=== PATIENT | male | born 1950 | race Caucasian/White ===

== ENCOUNTER 2019-03-24 17:43 | Emergency (ER) | payer MEDICARE ==
--- OUTSIDE RECORDS SUMMARY | 2019-03-24 18:01 | XMS REPORT | Continuity of Care Document ---
:1950 External Reference #:[id number] Author Name Roc Cook M.D. Address [address] [place] [address] Care Team Providers Name Role Phone Johnathan Peter - Urology Care Team Information Statistician Mathematical [phone] Arsenio Chappell MD - Hematology Care Team Information Statistician Mathematical [phone] Markie Wilson MD - Vascular Surgery Care Team Information Statistician Mathematical [facility] - Care Team Information Statistician Mathematical [phone] Gastroenterology Dilma Matson - Dermatology Care Team Information Statistician Mathematical Tita Vidales MD - Hematology & Care Team Information Statistician Mathematical [phone] Oncology [facility] Radiology Department - Diagnostic Care Team Information Statistician Mathematical Radiology Dragan Nicolas MD - Cardiovascular Care Team Information Statistician Mathematical Disease Problems Active Problems Provider Date Essential hypertension Bladimir Pearl M.D. Onset: 06/17/1998 Hyperlipidemia Roc Cook M.D. Onset: 09/16/2007 Obesity Roc Cook M.D. Onset: 09/16/2007 Idiopathic progressive polyneuropathy Roc Cook M.D. Onset: 2007 Benign prostatic hypertrophy without Roc Cook M.D. Onset: 07/24/2008 outflow obstruction Gout Roc Cook M.D. Onset: 07/24/2008 Backache Roc Cook M.D. Onset: 01/27/2011 Thrombocytopenic disorder Roc Cook M.D. Onset: 01/27/2011 Peripheral vascular disease Roc Cook M.D. Onset: 09/11/2011 Impaired renal function disorder Roc Cook M.D. Onset: 08/15/2012 Depressive disorder Roc Cook M.D. Onset: 07/24/2013 Hypothyroidism Roc Cook M.D. Onset: 08/07/2013 Paroxysmal atrial fibrillation Roc Cook M.D. Onset: 11/06/2015 Myelodysplastic syndrome (clinical) Roc Cook M.D. Onset: 01/16/2017 Acute sinusitis Roc Cook M.D. Onset: 05/28/2018 Combined form of senile cataract Roc Cook M.D. Onset: 01/27/2019 Adult health examination Roc Cook M.D. Onset: 01/27/2019 Urinary tract infectious disease Roc Cook M.D. Onset: 01/27/2019 Social History Type Date Description Comments Sex Unknown Tobacco Use Start: Unknown End: Former Cigarette Smoker 1 Unknown Pack Daily ETOH Use Has consumed alcohol in the now quit, formerly past heavy Allergies, Adverse Reactions, Alerts Active Allergies Reaction Severity Comments Date Ibuprofen 07/06/2009 Tetracycline 08/24/2015 Prednisone makes pt mean 11/06/2015 Medications Active Medications SIG Qnty Indications Ordering Date Provider Sertraline HCL 1 by mouth every 90tabs Roc FSharon 01/27/2019 100mg day Sha Cook Tablets Montelukast Sodium 1 by mouth every 30tabs Roc FSharon 01/27/2019 10mg day Sha Cook Tablets Chantix Starting refill with 1 mg 1tabs Roc FSharon 01/27/2019 Month Oneal by mouth twice a Sha Cook 0.5mg X 11 & day 1 mg X 42 Tablets Sulfamethoxazole/Trim take 1 tablet by 20tabs Roc FSharon 01/27/2019 ethoprim DS mouth 2 times a Sha Cook 800-160mg day for 10 days Tablets [facility] Vitamin B-12 Take 1 Tablet By 100tabs Roc FSharon 11/28/2018 Mouth Every Day Shallish, M.D. 1000mcg Tablets Colchicine Take 1 Tablet By 180tabs Roc F. 07/04/2018 0.6mg Mouth Twice Daily Sha Cook Tablets as Needed Allopurinol Take 1 Tablet By 90tabs Roc F. 05/28/2018 100mg Mouth Every Day Sha Cook Tablets Furosemide take 1 tablet by 90tabs Roc F. 12/18/2017 20mg Tablets mouth once daily Sha Cook Sudafed 1 by mouth four 120tabs Roc F. 11/28/2017 30mg Tablets times a day as Sha Cook needed Warfarin Sodium Take 1 Tablet By 90tabs Roc F. 01/08/2016 5mg Mouth Every Day Or Sha Cook Tablets as Directed Oxycontin 1 by mouth twice a 60tabs Roc F. 11/06/2015 60mg Tab ER day dx: g60.9 Sha Cook 12H Abuse-Det neuropathy Levothyroxine Sodium Take 1 Tablet By 90tabs Roc FSharon 08/03/2013 Mouth Every Day Sha Cook 25mcg Tablets Ambien take 1 tablet at 30tabs James Leonard 06/25/2010 10mg Tablets bedtime as needed MD Blanca for sleep Omeprazole take one capsule 90michelle Peraza 06/16/2010 20mg by mouth every day PAVEL Holly Capsules DR Figueroa take 1 capsule 90caps James Leonard 07/24/2008 200mg Capsules three times a day MD Blanca Xanax 1 by mouth three 90tabs Roc F. 0.25mg Tablets times a day Sha Cook Aspirin 1 po qd Roc F. 81mg Tablet Sha Cook Oxycodone HCL 1 by mouth every 4 60tabs Roc F. 5mg hours as needed Sha Cook Tablets History Medications Azithromycin take 2 tablets by 6tabs Roc FSharon Cook, 09/24/2018 - 250mg mouth on day 1 M.DSharon 01/27/2019 Tablets then 1 tablet on days 2 through 5 Sertraline HCL 1 by mouth every 90tabs Gayle Holly, 09/24/2018 - 50mg day [employer] 01/27/2019 Tablets Medications Administered in Office Medication SIG Qnty Indications Ordering Provider Date H1N1 MDCR vaccine any route Roc Cook M.D. 07/06/2009 Injection B-12 Injection Roc Cook M.D. 05/11/2006 Injection Injection Subcutaneous Or Roc Cook M.D. 05/11/2006 Intramuscular Injection Immunizations CPT Code Status Date Vaccine Reaction Lot # [id number] Given 01/27/2019 Pneumococcal Conjugate [id number] Vacc-13 27471 Given 01/27/2019 High-Dose, Influenza Virus [id number] Vacccine-fluzone 65 and older 79075 Given 03/09/2018 High-Dose, Influenza Virus [id number] Vacccine-fluzone 65 and older 06967 Given 01/16/2017 Influenza Vac, Quadrivalent, [id number] [address] Given 04/01/2016 Zostivax [id number] 58031 Given 04/01/2016 Pneumococcal Immunization [id number] 80198 Given 04/01/2016 Influenza Vac, Quadrivalent, [id number] [address] Given 03/11/2014 DO Not Use Split Influenza Virus Vaccine 89068 Given 12/20/2012 Tdap Tetanus, W Pertussis [id number] Q2038 Given 01/27/2011 Split Influenza Medicare: no reaction noted [id number] Fluzone 61410 Given 03/11/2010 DO Not Use Split Influenza [id number] Virus Vaccine 99392 Given 07/06/2009 DO Not Use Split Influenza [id number] Virus Vaccine 92672 Given 04/16/2006 DO Not Use Split Influenza [id number] Virus Vaccine 69146 Given 03/07/2005 DO Not Use Split Influenza Virus Vaccine Vital Signs Date Vital Result Comment 01/27/2019 2:40pm BP Systolic 110 mmHg BP Diastolic 90 mmHg Heart Rate 68 /min Body Temperature 97.7 F Respiratory Rate 12 /min Weight 278.00 lb 09/24/2018 6:55pm BP Systolic 136 mmHg BP Diastolic 78 mmHg Heart Rate 72 /min Body Temperature 97.7 F Respiratory Rate 20 /min Results Test Date Facility Test Result H/L Range Note Laboratory test 01/27/2019 [facility] ([facility]) 1.7 Low 2.0-3.0 finding (607)- - Laboratory test 01/27/2019 [facility] PSA (ALL <pending> 0.0- 4.0 finding Lab Comp) Laboratory test 01/27/2019 [facility] Free T4 <pending> 0.75- 1.54 finding TSH <pending> 0.5-5.0 Ua - Micro ([facility]) 01/27/2019 [facility] Medicine Appearance Slightly Cloudy (607)- - Color Yellow Glucose, Urine ([facility]ma/CMC/CTX) Negative Bilirubin Negative Ketones Negative SP Grav 1.015 Blood Small PH 5.5 Protein Negative Urobil 0.2 Nitrite Negative Leukocytes ([facility]/CMC/[facility]rex) Large Hyaline - /Lpf Granular - /Lpf WBC ([facility]) >100 RBC 3-4 Mucus ([facility]/CBC/[facility]) 0 /Lpf Epith 0 /Lpf Bacteria Trace /Hpf Amorphous ([facility]/CMC/[facility]rex) - /Lpf Crystals, Fluid ([facility]/CMC/CTX) - Z#Comments <pending> Ua - Non Micro ([facility]) 10/01/2018 [facility] Appearance Clear (607)- - Color Yellow Glucose, Urine ([facility]/CMC/CTX) Negative Bilirubin Negative Ketones Negative SP Grav 1.025 Blood Negative PH 6.0 Protein -SSA Urobil 0.2 Nitrite Negative Leukocytes ([facility]/CMC/Centrex) Negative CBC Manual Diff-a 09/28/2018 [facility] WBC 3.56 Low 4.0-10.0 1 (607)- - RBC 3.99 3.93-6.0 Hemoglobin ([facility]/CMC/CTX) 12.6 g/dL 12.0-17.0 Hematocrit ([facility]/CMC/CTX) 39.6 % 35.0-50.0 Mean Corpuscular Vol 99.2 fL High 80-95 Mean Corpuscular Hemoglobin 31.6 pg 25.6-32.2 Mean Corpuscular Hemo Concen 31.8 g/dL Low 32.2-36.0 Platelets 89 10^3/ul Low 163-400 RDW 14.0 High 11.6-13.7 Mean Platelet Volume 11.4 fL 8.0-12.4 Neutrophil % 33 % Low 34.0-70.0 Band Neutrophil 5 % 1-7 Lymph% 30 % 20.0-52.0 Monocytes % 9 % 5.0-12.0 Eos % 3 % 0.7-7.0 Atypical Lymph 17 Metamyelocytes 2 Myelocytes 1 Macrocytosis slight Hypochrom slight Comment see result note Comprehensive Metabolic 09/28/2018 [facility]) Sodium 142 mEq/L 134-149 Prof Potassium 4.0 mEq/L 3.6-5.5 Chloride 105 mEq/L 94-112 Carbon Dioxide 27 mEq/L 21-32 Glucose 75 mg/dL 70-105 BUN 25 mg/dL 6-26 Creatinine 2.2 mg/dL High 0.6-1.4 2 BUN/Creat Ratio 11.4 CALC 8.0-36.0 Calcium 8.6 mg/dL 8.6-10.2 Total Protein 6.2 g/dL Low 6.4-8.3 3 Albumin 4.0 g/dL 3.8-5.5 Globulin 2.2 g/dL 2.0-4.8 A/G Ratio 1.8 CALC 0.6-2.3 Alk. Phosphatase 97 U/L High 22-95 4 Alt (SGPT) 7 U/L 7-35 Ast (Sgot) 12 U/L 5-34 Total Bilirubin 0.4 mg/dL 0.2-1.3 GFR Non- 32 ml/min/1.73m^ Low >=60 GFR 39 ml/min/1.73m^ Low >=60 Laboratory test 09/28/2018 [facility] Free T4 0.92 ng/dL 0.75- 1.54 finding TSH 1.77 mIU/L 0.50-6.00 Lipid Profile 09/28/2018 [facility]) Cholesterol 203 mg/dL High 120-200 Triglycerides 231 mg/dL High 30-200 HDL Cholesterol 43 mg/dL 30-70 LDL (Calculated) 114 CALC 0-129 VLDL Cholesterol 46 mg/dL 0-50 HDL Risk Factor 4.7 CALC High 0.0-4.4 Laboratory test 09/28/2018 [facility]) PSA 0.2 ng/mL 0.0-4.0 finding Laboratory test 09/28/2018 [facility] ([facility]) 3.6 High 2.0-3.0 finding (607)- - 1 Platelets appear slightly low in number on smear, there are small platelet clumps present (consistent with previous results). Large platelets present on smear. 17% atypical lymphs on smear, appear abnormal in morphology. 2 consistent w/ previous results 3 RESULTS VERIFIED BY REPEAT ANALYSIS 4 RESULTS VERIFIED BY REPEAT ANALYSIS Procedures Date Code Description Status 09/11/2003 60272043 Colonoscopy Completed Medical Devices Description No Information Available Encounters Type Date Location Provider Dx Diagnosis Office Visit 09/24/2018 Main Office Roc Cook, I48.0 Paroxysmal atrial 6:00p M.DSharon fibrillation D46.9 Myelodysplastic syndrome, unspecified M10.9 Gout, unspecified J01.80 Other acute sinusitis G60.3 Idiopathic progressive neuropathy F32.89 Other specified depressive episodes N40.0 Benign prostatic hyperplasia without lower urinry tract symp Assessments Date Code Description Provider 01/27/2019 N40.0 Benign prostatic hyperplasia without lower Roc Cook M.D. urinary tract sym 01/27/2019 M10.9 Gout, unspecified Roc Cook M.D. 01/27/2019 G60.3 Idiopathic progressive neuropathy Roc Cook M.D. 01/27/2019 F32.89 Other specified depressive episodes Roc Cook M.D. 01/27/2019 D46.9 Myelodysplastic syndrome, unspecified Roc Cook M.D. 01/27/2019 I73.89 Other specified peripheral vascular diseases Roc Cook M.D. 01/27/2019 I48.0 Paroxysmal atrial fibrillation Roc Cook M.D. 01/27/2019 H25.89 Other age-related cataract Roc Cook M.D. 01/27/2019 Z00.00 Encounter for general adult medical Roc Cook M.D. examination without abnormal findings 01/27/2019 N39.0 Urinary tract infection, site not specified Roc Cook M.D. 01/27/2019 Z23 Encounter for immunization Roc Cook M.D. 01/27/2019 Z71.6 Tobacco abuse counseling Roc Cook M.D. 10/01/2018 N40.0 Benign prostatic hyperplasia without lower Roc Cook M.D. urinary tract sym 10/01/2018 N40.0 Benign prostatic hyperplasia without lower Roc Cook M.D. urinry tract symp 09/28/2018 I48.0 Paroxysmal atrial fibrillation Roc Cook M.D. 09/28/2018 N40.0 Benign prostatic hyperplasia without lower Roc Cook M.D. urinry tract symp 09/28/2018 D72.9 Disorder of white blood cells, unspecified Roc Cook M.D. 09/28/2018 Z79.01 skilled nursing (current) use of anticoagulants Roc Cook M.D. 09/24/2018 I48.0 Paroxysmal atrial fibrillation Roc Cook M.D. 09/24/2018 D46.9 Myelodysplastic syndrome, unspecified Roc Cook M.D. 09/24/2018 M10.9 Gout, ceciliaified Roc Cook M.D. 09/24/2018 J01.80 Other acute sinusitis Roc Cook M.D. 09/24/2018 G60.3 Idiopathic progressive neuropathy Roc Cook M.D. 09/24/2018 F32.89 Other specified depressive episodes Roc Cook M.D. 09/24/2018 N40.0 Benign prostatic hyperplasia without lower Roc Cook M.D. urinary tract sym Plan of Treatment Future Appointment(s):04/07/2019 11:20 am - Roc Cook M.D. at [facility]01/27/2019 - Roc Cook M.D.N40.0 Benign prostatic hyperplasia without lower urinary tract symComments:The patient was advised to have yearly digital rectal exams, and a yearly psaM10.9 Gout, unspecifiedComments:continue present medication , controlled on current eadaxB61.3 Idiopathic progressive neuropathyComments:continue pain meds and SoguhhP38.89 Other specified depressive episodesComments:increase sertraline, use ambien prn , xanax prnD46.9 Myelodysplastic syndrome, unspecifiedComments:to have follow up with Dr Green73.89 Other specified peripheral vascular diseasesComments:nonhealing ulcer right ankle, refer to Dr Ahmadi for follow upI48.0 Paroxysmal atrial fibrillationComments:poorly compliant with INR readings, may need to consider stopping warfarin or change to NOAC , he isseeing Dr Nicolas in follow up next weekH25.89 Other age-related cataractComments:refer to LeqsfsdzkguZ27.00 Encounter for general adult medical examination without abnormal findingsNew Labs:Ict Hemoccult (Fma), Ordered: 01/27/19Follow up:Followup:. (Follow up) N39.0 Urinary tract infection, site not [id number] Encounter for immunizationFollow up:Followup:. (Follow up)Z71.6 Tobacco abuse counselingComments:discussed for 3 minutes , octavia givenAllNew Medication: Sertraline HCL 100 mg - 1 by mouth every dayMontelukast Sodium 10 mg - 1 by mouth every dayChantix Starting Month Oneal 0.5 mg X 11 & 1 mg X 42 - refill with 1 mg by mouth twice a daySulfamethoxazole/Trimethoprim DS 800-160 mg - take 1 tablet by mouth 2 times a day for 10 daysComments:Medication Management Patient Understands medications he's taking? Yes No Are there Barriersto Adherence? Yes No Has the patient been asked about herbal supplements and therapies, and OTC meds? Yes No Patient was given anticipatory guidance regarding routine health care screenings, immunizations, and primary prevention of illness. Patient presents today with numerous issues. Chantix was sent in to his pharmacy to help him quit smoking. We will refer him to Dr. Ahmadi forconsultation regarding his peripheral arterial disease and nonhealing ulcer on the right ankle, lateral malleolus. His urinalysis shows pyuria, patient denies symptoms but because of this we'll refer to Dr. Peter for consult on benign prostatic hypertrophy, and start sulfamethoxazole trimethoprim twice a day for 10 days. Currently patient does not have followup with nephrology, await lab work today to recheck his renal status. Referred Dr. Louis for followup on cataracts. His oxycodone and Xanax were refilled. We discussed increasing his sertraline to 100 mg to help chronic depressive symptoms. Patient has been noncompliant with obtaining appropriate INR values while on warfarin. Also because of his severe neuropathy he is subject to falling. He has an appointment with Dr. Nicolas regarding his paroxysmal atrial fibrillation next week but it may be that if he cannot afford a novel oral anticoagulants such as Eliquis and Xarelto and we may need to discontinue his warfarin and is given for his paroxysmal atrial fibrillation. Gout has been well controlled on his present dose of allopurinol.Patientwas given a Prevnar and high-dose flu vaccine and will return in 2 months for followup on these issues Functional Status Description No Information Available Mental Status Description No Information Available Referrals Refer to Dr Reason for Referral Status Appt Date Queta Ahmadi nonhealing wound right ankle , claudication [place] [address] [phone] Naga Giron hammjerome toe , skin ulcer right foot jw Scheduled [address] [place], [place] [id number] [phone]
--- NOTE | 2019-03-24 18:26 | ED ---
Adult Trauma - HPI Summary HPI Summary: Pt is a 68 y/o M presenting to the ED brought in by EMS for upper extremity pain. He fell 3 nights ago and has multiple bruises across his body, the worst one being on his R arm. He noticed a "lump" under the bruise on his R arm He fell d/t difficulty walking in general from his peripheral neuropathy, and he is on Coumadin. He states he had some suprapubic abd pain afterwards which went away, no gross hematuria. Reports a sore on his R ankle, chronic for which he saw his PCP who told him there was nothing to do for it. He denies hitting his abd, LOC, head injury, or LISET. Was told to come to ED for eval by PCP. - History of Current Complaint Chief Complaint: EDGeneral Stated Complaint: GENERAL ILLNESS PER EMS Time Seen by Provider: 03/24/19 18:07 Hx Obtained From: Patient Mechanism of Injury: Fall Loss of Consciousness: no loss of consciousness Onset/Duration: Started Days Ago, Still Present Onset of Pain: Immediate Onset Severity: Mild Current Severity: Mild Pain Intensity: 2 Pain Scale Used: 0-10 Numeric Location: Abdomen/Pelvis Aggravating Factor(s): Nothing Alleviating Factor(s): Nothing Associated Signs & Symptoms: Positive: Abdominal Pain, Ecchymosis. Negative: Chest Pain, Loss of Consciousness - Additional Pertinent History Primary Care Physician: [id number] - Allergy/Home Medications Allergies/Adverse Reactions: Allergies Allergy/AdvReac Type Severity Reaction Status Date / Time MS Ibuprofen [Ibuprofen] Allergy KIDNEYS Verified 03/24/19 18:12 SHUT DOWN MS Tetracycline Allergy HIVES - Verified 03/24/19 18:12 [Tetracycline] STARTS IN GENITAL AREA Home Medications: Home Medications Allopurinol TAB* [Zyloprim 100 MG TAB*] 100 mg PO DAILY 03/24/19 [History Confirmed 03/24/19] Cyanocobalamin TAB* [Vitamin B12 TAB*] 1,000 mcg PO DAILY 03/24/19 [History Confirmed 03/24/19] Metoprolol Succinate XL TAB* [Toprol XL TAB*] 50 mg PO DAILY PRN 03/24/19 [ History Confirmed 03/24/19] Warfarin TAB(*) [Coumadin TAB(*)] 2.5 mg PO TUTH 03/24/19 [History Confirmed ] Warfarin TAB(*) [Coumadin TAB(*)] 5 mg PO SUMOWEFRSA 03/24/19 [History Confirmed 03/24/19] PMH/Surg Hx/FS Hx/Imm Hx Previously Healthy: Yes Endocrine/Hematology History: Reports: Hx Thyroid Disease Denies: Hx Blood Disorders, Hx Diabetes Cardiovascular History: Reports: Hx Atrial Fibrillation - diagnosed 05/2015, Hx Hypotension, Hx Hypertension, Other Cardiovascular Problems/Disorders - Diagnosed Afib 05/2015 Denies: Hx Deep Vein Thrombosis, Hx Pacemaker/ICD, Hx Peripheral Vascular Disease Respiratory History: Reports: Hx Pneumonia Denies: Hx Asthma, Hx Chronic Obstructive Pulmonary Disease (COPD), Hx Sleep Apnea History: Reports: Hx Chronic Renal Failure, Hx Renal Disease - renal failure Denies: Hx Dialysis, Hx Kidney Infection, Hx Kidney Stones Musculoskeletal History: Reports: Hx Arthritis, Hx Back Problems, Hx Gout, Hx Orthopedic Injury, Other Musculoskeletal History - Cervical laminectomy X2, peripheral neuropathy Denies: Hx Osteoporosis Sensory History: Reports: Hx Contacts or Glasses, Hx Vision Problem Denies: Hx Hearing Aid, Hx Hearing Problem Opthamlomology History: Reports: Hx Contacts or Glasses, Hx Vision Problem Neurological History: Reports: Other Neuro Impairments/Disorders - PERIPHERAL NEUROPATHY Denies: Hx Dementia, Hx Headaches, Hx Migraine, Hx Seizures, Hx Transient Ischemic Attacks (TIA) Psychiatric History: Reports: Hx Depression Denies: Hx Panic Disorder - Cancer History Cancer Type, Location and Year: 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 CSP - FUSION. ANKLE REPAIR WITH METAL - Immunization History Date of Tetanus Vaccine: PT STATES UNSURE Date of Influenza Vaccine: NONE Infectious Disease History: No Infectious Disease History: Denies: Traveled Outside the [place] in Last 30 Days - Family History Known Family History: Positive: Other Family History: Cancer - Social History Alcohol Use: None Hx Substance Use: Yes Substance Use Type: Reports: None Substance Use Comment - Amount & Last Used: every "couple days" Hx Tobacco Use: Yes Smoking Status (MU): Former Smoker Type: Cigarettes Length of Time of Smoking/Using Tobacco: 50 years Review of Systems Negative: Chest Pain Positive: Abdominal Pain Positive: Myalgia. Negative: Other - head injury Positive: Bruising, Other - sore on R foot Negative: Syncope All Other Systems Reviewed And Are Negative: Yes Physical Exam - Summary Physical Exam Summary: Constitutional: Well-developed, Well-nourished, Alert. (-) Distressed Skin: Warm, Dry. Ecchymosis to R chest wall approx. 3cm, upper R arm [id number]. Draining ulcer to lateral R ankle, no surrounding erythema. HENT: Normocephalic; Atraumatic Eyes: Conjunctiva normal Neck: Musculoskeletal ROM normal neck. No C spine TTP. (-) JVD, (-) Stridor, (- ) Nuchal rigidity Cardio: Rhythm regular, rate normal, Heart sounds normal; Intact distal pulses; Radial pulses are 2+ and symmetric. (-) Murmur Pulmonary/Chest wall: Effort normal. (-) Respiratory distress, (-) Wheezes, (-) Rales Abd: Soft, (-) tenderness, (-) Distension, (-) Guarding, (-) Rebound Musculoskeletal: (-) Edema. 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 No ankle tenderness. Lymph: (-) Cervical adenopathy Psych: Mood and affect Normal Triage Information Reviewed: Yes Vital Signs On Initial Exam: Initial Vitals Temp Pulse Resp BP Pulse Ox 98.9 F 67 16 130/81 100 03/24/19 17:54 03/24/19 17:54 03/24/19 17:54 03/24/19 17:54 03/24/19 17:54 Vital Signs Reviewed: Yes - [place] Coma Scale Best Eye Response: 4 - Spontaneous Best Motor Response: 6 - Obeys Commands Best Verbal Response: 5 - Oriented Coma Scale Total: 15 Procedures - Sedation Patient Received Moderate/Deep Sedation with Procedure: No Diagnostics - Vital Signs Vital Signs Temp Pulse Resp BP Pulse Ox 03/24/19 17:54 98.9 F 67 16 130/81 100 - Laboratory Result Diagrams: 03/24/19 18:55 03/24/19 18:55 Lab Statement: Any lab studies that have been ordered have been reviewed, and results considered in the medical decision making process. - Radiology Humerus XR Radiology Interpretation Completed By: ED Physician Summary of Radiographic Findings: Soft tissue swelling. No fracture. Pending official radiology report. Ankle XR Radiology Interpretation Completed By: ED Physician Summary of Radiographic Findings: No acute abnormalities. Pending official radiology report. CXR Radiology Interpretation Completed By: ED Physician Summary of Radiographic Findings: No acute abnormalities. Pending official radiology report. - CT Brain CT CT Interpretation Completed By: Radiologist Summary of CT Findings: No acute intracranial findings or hemorrhage. ED physician has reviewed this report. Re-Evaluation - Re-Evaluation Second Eval Re-Evaluation Time: 20:10 Change: Improved - XR neg for fr, CT neg. Patient did not urinate, states he is unable to go. Denies any blood in urine at home. Advised to return if he notices any. Adult Trauma Course/Dx - Course Course Of Treatment: 68 y/o male w recent fall on coumadin p/w arm pain. - R arm w ecchymosis to humerus, no obvious deformity. Suspect hematoma but will check XR. 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 - Diagnoses Provider Diagnoses: Fall, Hematoma Discharge ED - Sign-Out/Discharge Documenting (check all that apply): Patient Departure - Discharge Plan Condition: Stable Disposition: HOME Patient Education Materials: Hematoma (ED) Referrals: Roc Cook MD [Primary Care Provider] - Additional Instructions: You were seen in the emergency department for fall. Your INR is 3. Your x- rays did not show acute fractures. Your head CT did not show any bleeds. If any studies were not completed at the time of discharge you will be called with the relevant results. Please follow up with your primary care doctor in next 2-3 days and return to emergency department for worsening or concerning symptoms. It was a pleasure taking care of you today. - Billing Disposition and Condition Condition: STABLE Disposition: Home - Attestation Statements Document Initiated by Shari: Yes Documenting Scribe: Lucy Webster Provider For Whom Shari is Documenting (Include Credential): Nadja Pacheco MD. Scribe Attestation: Lucy Salomon, doved for Nadja Pacheco MD. on 03/25/19 at 1008. Scribe Documentation Reviewed: Yes Provider Attestation: The documentation as recorded by the doveLucy accurately reflects the service I personally performed and the decisions made by , Nadja Pacheco MD. Status of Scribe Document: Viewed
[2019-03-24 19:08] LABS: ABS Eosinophils 0.1 10^3/ul (0-0.6); ABS Lymphocytes 1.1 10^3/ul (1.0-4.8); ABS Monocytes 0.5 10^3/ul (0-0.8); ABS Neutrophils 3.1 10^3/ul (1.5-7.7); Eosinophil % 1.1 %; Hematocrit 39 % (42-52); Lymphocyte % 22.3 %; Mean Corpuscular HGB Conc 34 g/dL (31-36); Mean Corpuscular Hemoglobin 32 pg (27-31); Mean Corpuscular Volume 95 fL (80-94); Mean Platelet Volume 8.8 fL (7.4-10.4); Platelet Count 104 10^3/uL (150-450); Red Blood Count 4.05 10^6 /uL (4.18-5.48); Red Cell Distribution Width 16 % (10-15); White Blood Count 4.8 10^3/uL (3.5-10.8)
[2019-03-24 19:23] LABS: Albumin 3.9 g/dL (3.2-5.2); Albumin/Globulin Ratio 1.5 (1-3); Calcium 9.1 mg/dL (8.6-10.3); EGFR African American 48.4 (>60); Globulin 2.6 g/dL (2-4); Potassium 3.7 mmol/L (3.5-5.0); Total Bilirubin 0.6 mg/dL (0.2-1.0); Total Protein 6.5 g/dL (6.4-8.9)
[2019-03-24 19:33] LABS: INR 3.09 (0.82-1.09)
[2019-03-24 20:29] VITALS: BP 133/85
== END 2019-03-24 20:29 | disposition home or self-care (01) ==
LOC: ED 17:43
DX: S40.021A Contusion of right upper arm, initial encounter (principal); W19.XXXA Unspecified fall, initial encounter; Y92.9 Unspecified place or not applicable; E07.9 Disorder of thyroid, unspecified; I48.91 Unspecified atrial fibrillation; I12.9 Hypertensive chronic kidney disease with stage 1 through stage 4 chronic kidney disease, or unspecified chronic kidney disease; N18.9 Chronic kidney disease, unspecified; F32.9 Major depressive disorder, single episode, unspecified; Z87.891 Personal history of nicotine dependence; Z79.01 Long term (current) use of anticoagulants; Z79.899 Other long term (current) drug therapy; Z88.6 Allergy status to analgesic agent; Z88.1 Allergy status to other antibiotic agents; Z85.828 Personal history of other malignant neoplasm of skin
CPT/HCPCS: 36415; 70450; 71045; 80053; 85025; 85610; 99283

== ENCOUNTER 2020-07-07 | Inpatient (IN) ==
[2020-07-07] MEDS ORDERED: Lactated Ringers 1000 ml BAG IV.FLUID IV ONE (00:43)
[2020-07-07 01:20] LABS: ABS Lymphocytes 0.3 10^3/ul (1.0-4.8); ABS Monocytes 0.7 10^3/ul (0-0.8); ABS Neutrophils 12.4 10^3/ul (1.5-7.7); Hematocrit 39 % (42-52); Hemoglobin 12.6 g/dL (14.0-18.0); Lymphocyte % 2.2 %; Mean Corpuscular HGB Conc 32 g/dL (31-36); Mean Corpuscular Hemoglobin 31 pg (27-31); Mean Corpuscular Volume 94 fL (80-94); Mean Platelet Volume 10.2 fL (7.4-10.4); Platelet Count 78 10^3/uL (150-450); Red Blood Count 4.11 10^6 /uL (4.18-5.48); Red Cell Distribution Width 16 % (10-15); White Blood Count 13.4 10^3/uL (3.5-10.8)
[2020-07-07 01:28] LABS: Activated Partial Thrombo Time 68.9 seconds (26.0-38.0); INR 4.58 (0.82-1.09)
[2020-07-07 01:36] LABS: Albumin 3.9 g/dL (3.2-5.2); Albumin/Globulin Ratio 1.4 (1-3); BUN/Creatinine Ratio 14.8 (8-20); C Reactive Protein 67.25 mg/L (<8.01); Calcium 8.7 mg/dL (8.6-10.3); EGFR African American 32.3 (>60); EGFR Non-African American 26.7 (>60); Globulin 2.8 g/dL (2-4); Potassium 4.3 mmol/L (3.5-5.0); Total Bilirubin 0.6 mg/dL (0.2-1.0); Total Protein 6.7 g/dL (6.4-8.9)
[2020-07-07 01:37] LABS: Troponin I 0.01 ng/mL (<0.03)
[2020-07-07] MEDS ORDERED: Azithromycin 500 mg/250 ml NS 500 MG/250 ML BAG IVPB ONE (02:17)
[2020-07-07] MEDS ORDERED: cefTRIAXone 1 gm/50 mL NS BAG 1 GM/50 ML BAG IV ONE (02:17)
[2020-07-07 02:40] LABS: Influenza A Molecular Negative (Negative); Influenza B Molecular Negative (Negative)
[2020-07-07] MEDS ORDERED: Vancomycin 1,000 MG in NS 0.9% 250 ml 250 ML IVPB ONE (03:37)
[2020-07-07] MEDS ORDERED: Vancomycin 2,000 MG in NS 0.9% 500 ml BAG 500 ML IVPB ONE (04:00)
[2020-07-07] MEDS ORDERED: NS 0.9% 1000 ml BAG 1,000 ML IV SCH (04:00)
[2020-07-07] MEDS ORDERED: Vancomycin per Pharmacy 1 EA NOTE FOLLOW UP SCH (04:00)
[2020-07-07] MEDS ORDERED: Vancomycin 2,000 MG in NS 0.9% 250 ml 250 ML IVPB ONE (04:00)
[2020-07-07 04:42] LABS: TSH Ultra Thyroid Stim Horm 0.78 mcIU/mL (0.34-5.60)
[2020-07-07 06:33] LABS: Urine Appearance Clear; Urine Bilirubin Negative (Negative); Urine Blood Negative (Negative); Urine Color Yellow; Urine Glucose Negative (Negative); Urine Ketones Negative (Negative); Urine Nitrite Positive (Negative); Urine Protein Negative (Negative); Urine Specific Gravity 1.013 (1.010-1.030); Urine Urobilinogen Negative (Negative)
[2020-07-07 06:47] LABS: Urine Bacteria Absent (Absent); Urine Red Blood Cell Absent (Absent); Urine Squamous Epithelial Cell Present (Absent); Urine White Blood Cell 1+(6-10/hpf) (Absent)
[2020-07-07] MEDS: Vitamin THERAPEUTIC TAB PO SCH (09:21)
[2020-07-07] MEDS: Triamcinolone 0.5% OINT 1 TUBE TOPICAL SCH ×2 (16:23→21:15)
[2020-07-08] MEDS ORDERED: Vancomycin Random Level NOTE FOLLOW UP ONE (06:00)
[2020-07-08 07:48] LABS: INR 2.79 (0.82-1.09)
[2020-07-08 07:52] LABS: BUN/Creatinine Ratio 17.3 (8-20); Calcium 8.9 mg/dL (8.6-10.3); EGFR African American 39.9 (>60); Potassium 3.8 mmol/L (3.5-5.0)
[2020-07-08 08:08] LABS: ABS Lymphocytes 0.6 10^3/ul (1.0-4.8); ABS Monocytes 0.6 10^3/ul (0-0.8); ABS Neutrophils 6.3 10^3/ul (1.5-7.7); Eosinophil % 0.3 %; Hematocrit 33 % (42-52); Hemoglobin 10.9 g/dL (14.0-18.0); Lymphocyte % 7.4 %; Mean Corpuscular HGB Conc 33 g/dL (31-36); Mean Corpuscular Hemoglobin 31 pg (27-31); Mean Corpuscular Volume 93 fL (80-94); Mean Platelet Volume 10.4 fL (7.4-10.4); Platelet Count 59 10^3/uL (150-450); Red Blood Count 3.55 10^6 /uL (4.18-5.48); Red Cell Distribution Width 16 % (10-15); White Blood Count 7.5 10^3/uL (3.5-10.8)
[2020-07-08 08:13] LABS: Vancomycin Random 13.6 mcg/mL
[2020-07-08] MEDS: cefTRIAXone 1 gm/50 mL NS BAG 1 GM/50 ML BAG IVPB SCH (08:28)
[2020-07-08] MEDS: Vitamin THERAPEUTIC TAB PO SCH (08:36)
[2020-07-08] MEDS ORDERED: Vancomycin 1500 MG IV - x ONCE IVPB ONE ×2 (09:00→10:00)
[2020-07-08] MEDS: Azithromycin 500 mg/250 ml NS 500 MG/250 ML BAG IVPB SCH (09:14)
[2020-07-08] MEDS: Triamcinolone 0.5% OINT 1 TUBE TOPICAL SCH ×2 (09:15→22:28)
[2020-07-08] MEDS ORDERED: Warfarin per PHARMACY **NOTE FOLLOW UP SCH (16:00)
[2020-07-09] MEDS ORDERED: Vancomycin Random Level NOTE FOLLOW UP ONE (06:00)
[2020-07-09 06:21] LABS: ABS Lymphocytes 0.5 10^3/ul (1.0-4.8); ABS Monocytes 0.6 10^3/ul (0-0.8); ABS Neutrophils 5.4 10^3/ul (1.5-7.7); Eosinophil % 0.1 %; Hematocrit 31 % (42-52); Hemoglobin 10.5 g/dL (14.0-18.0); INR 2.55 (0.82-1.09); Lymphocyte % 8.2 %; Mean Corpuscular HGB Conc 34 g/dL (31-36); Mean Corpuscular Hemoglobin 31 pg (27-31); Mean Corpuscular Volume 92 fL (80-94); Nucleated Red Blood Cells % 0.2; Platelet Count 59 10^3/uL (150-450); Red Blood Count 3.39 10^6 /uL (4.18-5.48); Red Cell Distribution Width 16 % (10-15); White Blood Count 6.5 10^3/uL (3.5-10.8)
[2020-07-09 06:33] LABS: BUN/Creatinine Ratio 17.1 (8-20); Calcium 8.9 mg/dL (8.6-10.3); EGFR African American 47.1 (>60); Magnesium 1.8 mg/dL (1.9-2.7); Potassium 3.9 mmol/L (3.5-5.0)
[2020-07-09 06:43] LABS: Vancomycin Random 18.2 mcg/mL
[2020-07-09] MEDS: cefTRIAXone 1 gm/50 mL NS BAG 1 GM/50 ML BAG IVPB SCH (08:04)
[2020-07-09] MEDS: Triamcinolone 0.5% OINT 1 TUBE TOPICAL SCH (08:05)
[2020-07-09] MEDS: Vitamin THERAPEUTIC TAB PO SCH (08:05)
[2020-07-09] MEDS: Azithromycin 500 mg/250 ml NS 500 MG/250 ML BAG IVPB SCH (08:40)
[2020-07-09] MEDS ORDERED: Vancomycin 1000 MG in NS 0.9% 250 ML IVPB ONE (11:00)
[2020-07-09 16:42] VITALS: BP 115/59
[2020-07-09] MEDS ORDERED: Warfarin DAILY REMINDER **NOTE FOLLOW UP SCH (17:00)
[2020-07-10] MEDS ORDERED: Vancomycin Random Level NOTE FOLLOW UP ONE (06:00)
== END 2020-07-09 18:55 | disposition home health service (06) | DRG 193 ==
LOC: ED → MED 03:31
PROVIDERS: ADMIT Internal Medicine; ATTEND Internal Medicine

== ENCOUNTER 2020-10-04 05:10 | Inpatient (IN) ==
[2020-10-04 06:23] LABS: Urine Appearance Clear; Urine Bilirubin Negative (Negative); Urine Blood 1+ (Negative); Urine Color Yellow; Urine Glucose Negative (Negative); Urine Ketones Negative (Negative); Urine Nitrite Negative (Negative); Urine Protein Negative (Negative); Urine Specific Gravity 1.011 (1.002-1.030); Urine Urobilinogen Negative (Negative)
[2020-10-04 06:25] LABS: Urine Bacteria Absent (Absent); Urine Red Blood Cell 3+(>10/hpf) (Absent); Urine White Blood Cell Trace(0-5/hpf) (Absent)
[2020-10-04 06:28] LABS: ABS Lymphocytes 0.6 10^3/ul (1.0-4.8); ABS Monocytes 0.2 10^3/ul (0-0.8); ABS Neutrophils 2.7 10^3/ul (1.5-7.7); Hematocrit 33 % (42-52); Hemoglobin 10.6 g/dL (14.0-18.0); Lymphocyte % 16.2 %; Mean Corpuscular HGB Conc 33 g/dL (31-36); Mean Corpuscular Hemoglobin 31 pg (27-31); Mean Corpuscular Volume 94 fL (80-94); Mean Platelet Volume 10.8 fL (7.4-10.4); Nucleated Red Blood Cells % 0.1; Platelet Count 34 10^3/uL (150-450); Red Blood Count 3.47 10^6 /uL (4.18-5.48); Red Cell Distribution Width 19 % (10-15); White Blood Count 3.6 10^3/uL (3.5-10.8)
[2020-10-04 06:29] LABS: INR 2.73 (0.82-1.09)
[2020-10-04 06:43] LABS: Albumin 3.8 g/dL (3.2-5.2); Albumin/Globulin Ratio 1.5 (1-3); Calcium 8.4 mg/dL (8.6-10.3); EGFR African American 23.2 (>60); EGFR Non-African American 19.2 (>60); Globulin 2.6 g/dL (2-4); Magnesium 2.5 mg/dL (1.9-2.7); Total Bilirubin 0.4 mg/dL (0.2-1.0); Total Protein 6.4 g/dL (6.4-8.9)
[2020-10-04 06:45] LABS: Potassium 5.4 mmol/L (3.5-5.0)
[2020-10-04] MEDS ORDERED: Lactated Ringers 1000 ml BAG 1,000 ML IV SCH (08:00)
[2020-10-04] MEDS ORDERED: Al Hydrox/Mg Hydrox/Simet LIQ 30 ML UDC PO PRN (08:41)
[2020-10-04] MEDS ORDERED: Albuterol 2.5mg/3 ml (0.083%) NEB.SOLN INH PRN (08:46)
[2020-10-04] MEDS ORDERED: Albuterol/Ipratropium NEB.SOL (2.5/0.5 MG) 3 ML NEB.SOLN INH SCH (09:00)
[2020-10-04 09:10] LABS: Venous Bicarbonate HCO3 24.4 mmol/L (24-28)
[2020-10-04] MEDS: Albuterol HFA INHALER 8 gm MDI INH SCH ×3 (09:45→18:55)
[2020-10-04 09:47] LABS: PCO2 Arterial 56 mmHg (35-45); PO2 Arterial 123 mmHg (80-100)
[2020-10-04] MEDS: Collagenase 250 units/gm OINT 1 tube TOPICAL SCH (09:56)
[2020-10-04 11:16] LABS: PCO2 Arterial 53 mmHg (35-45); PO2 Arterial 387 mmHg (80-100)
[2020-10-04 12:30] LABS: Phosphorus 4.4 mg/dL (2.5-5.0)
[2020-10-04] MEDS: Lactated Ringers 1000 ml BAG 1,000 ML IV SCH ×2 (13:18→21:50)
[2020-10-04] MEDS: SPIRIVA Respimat (tiotropium) 2.5 mcg/inh Inhaler INH SCH (14:13)
[2020-10-04 16:45] LABS: Calcium 7.8 mg/dL (8.6-10.3); EGFR Non-African American 23.1 (>60)
[2020-10-04 19:18] LABS: Urine Benzodiazepine Screen Presumptive Positive (None Detect); Urine Cannabinoids Screen Presumptive Positive (None Detect); Urine Opiates Screen Presumptive Positive (None Detect)
[2020-10-05 04:41] LABS: INR 2.25 (0.82-1.09)
[2020-10-05 04:49] LABS: ABS Lymphocytes 0.6 10^3/ul (1.0-4.8); ABS Monocytes 0.2 10^3/ul (0-0.8); ABS Neutrophils 2.3 10^3/ul (1.5-7.7); Eosinophil % 0.7 %; Hematocrit 31 % (42-52); Hemoglobin 10.1 g/dL (14.0-18.0); Lymphocyte % 19.4 %; Mean Corpuscular HGB Conc 33 g/dL (31-36); Mean Corpuscular Hemoglobin 31 pg (27-31); Mean Corpuscular Volume 94 fL (80-94); Mean Platelet Volume 9.8 fL (7.4-10.4); Nucleated Red Blood Cells % 0.2; Platelet Count 23 10^3/uL (150-450); Red Blood Count 3.26 10^6 /uL (4.18-5.48); Red Cell Distribution Width 19 % (10-15); White Blood Count 3.1 10^3/uL (3.5-10.8)
[2020-10-05 04:52] LABS: Blood Urea Nitrogen 54 mg/dL (6-24); CO2 Carbon Dioxide 28 mmol/L (22-32); Calcium 8.5 mg/dL (8.6-10.3); Chloride 110 mmol/L (101-111); EGFR Non-African American 22.3 (>60); Glucose 84 mg/dL (70-100); Sodium 143 mmol/L (135-145)
[2020-10-05 04:55] LABS: Anion Gap 5 mmol/L (2-11); Potassium 5.6 mmol/L (3.5-5.0)
[2020-10-05] MEDS: Lactated Ringers 1000 ml BAG 1,000 ML IV SCH (07:29)
[2020-10-05] MEDS: Albuterol HFA INHALER 8 gm MDI INH SCH ×2 (07:31→11:05)
[2020-10-05] MEDS ORDERED: Dextrose 50% Syringe 50 ml 25 GM/50 ML SYRINGE IV PUSH ONE (07:39)
[2020-10-05 07:50] LABS: Magnesium 2.3 mg/dL (1.9-2.7); Phosphorus 3.4 mg/dL (2.5-5.0)
[2020-10-05] MEDS ORDERED: Dextrose 50% Syringe 50 ml 25 GM/50 ML SYRINGE ONE (07:54)
[2020-10-05 09:07] LABS: C Reactive Protein 18.52 mg/L (<8.01)
[2020-10-05] MEDS: SPIRIVA Respimat (tiotropium) 2.5 mcg/inh Inhaler INH SCH (09:10)
[2020-10-05 10:40] LABS: LDH 172 U/L (140-271)
[2020-10-05] MEDS ORDERED: Albuterol HFA INHALER 8 gm MDI INH PRN (11:03)
[2020-10-05] MEDS: Collagenase 250 units/gm OINT 1 tube TOPICAL SCH (11:56)
[2020-10-05 12:18] LABS: Vitamin B12 > 1450 pg/mL (180-914)
[2020-10-05] MEDS ORDERED: Perflutren Lipid Microsphere 3 ML VIAL ONE (12:29)
[2020-10-05 12:35] LABS: Calcium 8.3 mg/dL (8.6-10.3); EGFR African American 31.5 (>60); EGFR Non-African American 26.1 (>60)
[2020-10-05 13:28] LABS: Potassium 5.2 mmol/L (3.5-5.0)
[2020-10-06] MEDS ORDERED: Senna TAB 8.6 mg TAB PO PRN (01:23)
[2020-10-06] MEDS ORDERED: Polyethylene Glycol 3350 17 GM PACKET PO PRN (01:23)
[2020-10-06] MEDS: Ondansetron 4 mg VIAL 2 MG/ML 2 ml VIAL IV PRN ×3 (01:33→20:00)
[2020-10-06 06:13] LABS: Hematocrit 34 % (42-52); INR 1.76 (0.82-1.09); Mean Corpuscular HGB Conc 32 g/dL (31-36); Mean Corpuscular Hemoglobin 30 pg (27-31); Mean Corpuscular Volume 94 fL (80-94); Red Blood Count 3.61 10^6 /uL (4.18-5.48); Red Cell Distribution Width 19 % (10-15); White Blood Count 4.6 10^3/uL (3.5-10.8)
[2020-10-06 06:14] LABS: ABS Lymphocytes 0.7 10^3/ul (1.0-4.8); ABS Monocytes 0.3 10^3/ul (0-0.8); ABS Neutrophils 3.6 10^3/ul (1.5-7.7); Eosinophil % 0.3 %; Nucleated Red Blood Cells % 0.3
[2020-10-06 07:01] LABS: Albumin 3.8 g/dL (3.2-5.2); Albumin/Globulin Ratio 1.3 (1-3); Calcium 9.6 mg/dL (8.6-10.3); EGFR African American 30.8 (>60); EGFR Non-African American 25.5 (>60); Globulin 2.9 g/dL (2-4); Total Bilirubin 0.6 mg/dL (0.2-1.0); Total Protein 6.7 g/dL (6.4-8.9)
[2020-10-06 07:08] LABS: Potassium 5.3 mmol/L (3.5-5.0)
[2020-10-06 07:43] LABS: Large Platelets Present; Mean Platelet Volume 10.6 fL (7.4-10.4); Platelet Count 25 10^3/uL (150-450)
[2020-10-06] MEDS: Magnesium Hydroxide LIQ 30 ML UDC PO SCH ×2 (08:15→20:00)
[2020-10-06] MEDS: Collagenase 250 units/gm OINT 1 tube TOPICAL SCH (08:16)
[2020-10-06] MEDS: SPIRIVA Respimat (tiotropium) 2.5 mcg/inh Inhaler INH SCH (15:07)
[2020-10-07 05:58] LABS: Calcium 9.6 mg/dL (8.6-10.3); EGFR Non-African American 26.4 (>60)
[2020-10-07 06:07] LABS: Potassium 5.3 mmol/L (3.5-5.0)
[2020-10-07 06:26] LABS: INR 1.64 (0.82-1.09)
[2020-10-07 06:30] LABS: ABS Lymphocytes 0.9 10^3/ul (1.0-4.8); ABS Monocytes 0.4 10^3/ul (0-0.8); ABS Neutrophils 2.8 10^3/ul (1.5-7.7); Eosinophil % 1.1 %; Hematocrit 34 % (42-52); Hemoglobin 11.1 g/dL (14.0-18.0); Lymphocyte % 21.3 %; Mean Corpuscular HGB Conc 32 g/dL (31-36); Mean Corpuscular Hemoglobin 30 pg (27-31); Mean Corpuscular Volume 94 fL (80-94); Mean Platelet Volume 11.3 fL (7.4-10.4); Nucleated Red Blood Cells % 0.3; Platelet Count 25 10^3/uL (150-450); Red Blood Count 3.66 10^6 /uL (4.18-5.48); Red Cell Distribution Width 19 % (10-15); White Blood Count 4.2 10^3/uL (3.5-10.8)
[2020-10-07] MEDS: SPIRIVA Respimat (tiotropium) 2.5 mcg/inh Inhaler INH SCH (07:49)
[2020-10-07] MEDS: Magnesium Hydroxide LIQ 30 ML UDC PO SCH ×2 (09:29→20:51)
[2020-10-07] MEDS: Collagenase 250 units/gm OINT 1 tube TOPICAL SCH (09:33)
[2020-10-07] MEDS: Nicotine PATCH 14 MG/24 HR PATCH TRANSDERM SCH (16:14)
[2020-10-08 06:11] LABS: ABS Eosinophils 0.1 10^3/ul (0-0.6); ABS Lymphocytes 0.9 10^3/ul (1.0-4.8); ABS Monocytes 0.5 10^3/ul (0-0.8); ABS Neutrophils 2.7 10^3/ul (1.5-7.7); Eosinophil % 1.3 %; Hematocrit 33 % (42-52); Hemoglobin 10.7 g/dL (14.0-18.0); Lymphocyte % 21.8 %; Mean Corpuscular HGB Conc 33 g/dL (31-36); Mean Corpuscular Hemoglobin 31 pg (27-31); Mean Corpuscular Volume 94 fL (80-94); Mean Platelet Volume 10.8 fL (7.4-10.4); Nucleated Red Blood Cells % 0.2; Platelet Count 28 10^3/uL (150-450); Red Cell Distribution Width 19 % (10-15); White Blood Count 4.2 10^3/uL (3.5-10.8)
[2020-10-08 06:24] LABS: Calcium 9.4 mg/dL (8.6-10.3); EGFR African American 34.7 (>60); EGFR Non-African American 28.7 (>60); Potassium 4.9 mmol/L (3.5-5.0)
[2020-10-08] MEDS: SPIRIVA Respimat (tiotropium) 2.5 mcg/inh Inhaler INH SCH (07:44)
[2020-10-08] MEDS: Collagenase 250 units/gm OINT 1 tube TOPICAL SCH (09:42)
[2020-10-08] MEDS: Nicotine PATCH 14 MG/24 HR PATCH TRANSDERM SCH (09:42)
[2020-10-08] MEDS: Magnesium Hydroxide LIQ 30 ML UDC PO SCH ×2 (09:42→21:13)
[2020-10-08 10:10] LABS: Noroxycodone Conf, Urine 2945 ng/mL (Cutoff: 25); Noroxymorphone, Urine 336 ng/mL (Cutoff: 25); Oxycodone Conf, Urine 965 ng/mL (Cutoff: 25); Oxycodone Interpretation, U Positive.; Oxymorphone, Urine 1534 ng/mL (Cutoff: 25)
[2020-10-08] MEDS: Ondansetron 4 mg VIAL 2 MG/ML 2 ml VIAL IV PRN (15:06)
[2020-10-08] MEDS ORDERED: Prochlorperazine 5 mg/ml 2 ml VIAL (10 mg) IV PRN (15:47)
[2020-10-08 16:28] LABS: C Reactive Protein 4.39 mg/L (<8.01)
[2020-10-08 17:38] LABS: Albumin 3.8 g/dL (3.2-5.2); Direct Bilirubin 0.1 mg/dL (0.03-0.18); Indirect Bilirubin 0.5 mg/dL (0.3-1.0); Total Bilirubin 0.6 mg/dL (0.2-1.0)
[2020-10-08 17:44] LABS: Albumin/Globulin Ratio 1.3 (1-3); Globulin 2.9 g/dL (2-4); Total Protein 6.7 g/dL (6.4-8.9)
[2020-10-08 19:36] LABS: Urine Appearance Clear; Urine Bilirubin Negative (Negative); Urine Blood 1+ (Negative); Urine Color Yellow; Urine Glucose Negative (Negative); Urine Ketones Negative (Negative); Urine Nitrite Negative (Negative); Urine Protein Negative (Negative); Urine Specific Gravity 1.013 (1.002-1.030); Urine Urobilinogen Negative (Negative)
[2020-10-08 19:43] LABS: Urine Bacteria Absent (Absent); Urine Red Blood Cell 2+(6-10/hpf) (Absent); Urine Squamous Epithelial Cell Present (Absent); Urine White Blood Cell Trace(0-5/hpf) (Absent)
[2020-10-09 05:38] LABS: ABS Eosinophils 0.1 10^3/ul (0-0.6); ABS Lymphocytes 0.7 10^3/ul (1.0-4.8); ABS Monocytes 0.5 10^3/ul (0-0.8); ABS Neutrophils 2.5 10^3/ul (1.5-7.7); Eosinophil % 1.4 %; Hematocrit 32 % (42-52); Hemoglobin 10.7 g/dL (14.0-18.0); Lymphocyte % 17.8 %; Mean Corpuscular HGB Conc 33 g/dL (31-36); Mean Corpuscular Hemoglobin 31 pg (27-31); Mean Corpuscular Volume 93 fL (80-94); Mean Platelet Volume 10.1 fL (7.4-10.4); Nucleated Red Blood Cells % 0.1; Platelet Count 30 10^3/uL (150-450); Red Blood Count 3.47 10^6 /uL (4.18-5.48); Red Cell Distribution Width 19 % (10-15); White Blood Count 3.7 10^3/uL (3.5-10.8)
[2020-10-09 05:39] LABS: INR 1.53 (0.82-1.09)
[2020-10-09 05:51] LABS: Calcium 9.1 mg/dL (8.6-10.3); EGFR African American 36.8 (>60); EGFR Non-African American 30.4 (>60); Potassium 4.3 mmol/L (3.5-5.0)
[2020-10-09] MEDS: SPIRIVA Respimat (tiotropium) 2.5 mcg/inh Inhaler INH SCH (07:27)
[2020-10-09] MEDS: Magnesium Hydroxide LIQ 30 ML UDC PO SCH ×2 (10:39→20:29)
[2020-10-09] MEDS: Nicotine PATCH 14 MG/24 HR PATCH TRANSDERM SCH (10:40)
[2020-10-09] MEDS: Collagenase 250 units/gm OINT 1 tube TOPICAL SCH (12:23)
[2020-10-09] MEDS ORDERED: Ondansetron 4 mg VIAL 2 MG/ML 2 ml VIAL IV PRN (13:09)
[2020-10-10] MEDS: SPIRIVA Respimat (tiotropium) 2.5 mcg/inh Inhaler INH SCH (07:35)
[2020-10-10] MEDS: Nicotine PATCH 14 MG/24 HR PATCH TRANSDERM SCH (08:04)
[2020-10-10] MEDS: Collagenase 250 units/gm OINT 1 tube TOPICAL SCH (10:20)
[2020-10-10] MEDS: Magnesium Hydroxide LIQ 30 ML UDC PO SCH ×2 (10:20→20:52)
[2020-10-10] MEDS: Cefepime 2 GM in Dextrose 2 GM/50 ML BAG IV SCH (13:02)
[2020-10-11] MEDS: Cefepime 2 GM in Dextrose 2 GM/50 ML BAG IV SCH (00:41)
[2020-10-11 06:31] LABS: INR 1.36 (0.82-1.09)
[2020-10-11 06:33] LABS: ABS Eosinophils 0.1 10^3/ul (0-0.6); ABS Monocytes 0.5 10^3/ul (0-0.8); ABS Neutrophils 3.1 10^3/ul (1.5-7.7); Eosinophil % 2.2 %; Hematocrit 35 % (42-52); Hemoglobin 11.4 g/dL (14.0-18.0); Lymphocyte % 20.8 %; Mean Corpuscular HGB Conc 33 g/dL (31-36); Mean Corpuscular Hemoglobin 31 pg (27-31); Mean Corpuscular Volume 94 fL (80-94); Mean Platelet Volume 9.8 fL (7.4-10.4); Nucleated Red Blood Cells % 0.1; Platelet Count 62 10^3/uL (150-450); Red Blood Count 3.72 10^6 /uL (4.18-5.48); Red Cell Distribution Width 19 % (10-15); White Blood Count 4.7 10^3/uL (3.5-10.8)
[2020-10-11 06:43] LABS: EGFR African American 38.6 (>60); EGFR Non-African American 31.9 (>60); Potassium 3.9 mmol/L (3.5-5.0)
[2020-10-11] MEDS: SPIRIVA Respimat (tiotropium) 2.5 mcg/inh Inhaler INH SCH (09:56)
[2020-10-11] MEDS: Magnesium Hydroxide LIQ 30 ML UDC PO SCH ×2 (10:01→20:55)
[2020-10-11] MEDS: Nicotine PATCH 14 MG/24 HR PATCH TRANSDERM SCH (10:03)
[2020-10-11] MEDS: Collagenase 250 units/gm OINT 1 tube TOPICAL SCH (10:05)
[2020-10-11] MEDS ORDERED: Zosyn per Pharmacy NOTE FOLLOW UP SCH (11:00)
[2020-10-11] MEDS ORDERED: ZOSYN 3.375 GM x ONE DOSE over 30 miuntes IV (11:30)
[2020-10-11] MEDS: ZOSYN 3.375 GM Q8H per EXTENDED INFUSION IV SCH (18:04)
[2020-10-11] MEDS: Warfarin DAILY REMINDER **NOTE FOLLOW UP SCH (18:06)
[2020-10-12] MEDS: ZOSYN 3.375 GM Q8H per EXTENDED INFUSION IV SCH ×2 (02:04→19:51)
[2020-10-12 07:57] LABS: ABS Eosinophils 0.2 10^3/ul (0-0.6); ABS Lymphocytes 1.1 10^3/ul (1.0-4.8); ABS Monocytes 0.6 10^3/ul (0-0.8); Hematocrit 35 % (42-52); Hemoglobin 11.8 g/dL (14.0-18.0); Lymphocyte % 18.4 %; Mean Corpuscular HGB Conc 33 g/dL (31-36); Mean Corpuscular Hemoglobin 31 pg (27-31); Mean Corpuscular Volume 94 fL (80-94); Mean Platelet Volume 9.8 fL (7.4-10.4); Nucleated Red Blood Cells % 0.1; Platelet Count 91 10^3/uL (150-450); Red Blood Count 3.77 10^6 /uL (4.18-5.48); Red Cell Distribution Width 19 % (10-15); White Blood Count 5.8 10^3/uL (3.5-10.8)
[2020-10-12 07:59] LABS: INR 1.12 (0.82-1.09)
[2020-10-12 08:00] LABS: EGFR Non-African American 31.4 (>60)
[2020-10-12] MEDS: SPIRIVA Respimat (tiotropium) 2.5 mcg/inh Inhaler INH SCH (08:40)
[2020-10-12] MEDS ORDERED: Lorazepam PYXIS KEY PRN ×6 (11:25→23:40)
[2020-10-12] MEDS: LORazepam 2 mg VIAL 1 ml IV PUSH ONE ×3 (12:14→22:42)
[2020-10-12] MEDS ORDERED: LORazepam 2 mg VIAL 1 ml IV PUSH ONE ×2 (14:31→23:40)
[2020-10-12] MEDS ORDERED: LORazepam 2 mg VIAL 1 ml IV PUSH PRN (14:32)
[2020-10-12] MEDS ORDERED: LORazepam 2 mg VIAL 1 ml IM ONE ×2 (14:42→17:03)
[2020-10-12 15:11] LABS: C Reactive Protein 3.04 mg/L (<8.01)
[2020-10-12] MEDS ORDERED: Haloperidol 5 mg/ml SDV IV/IM 5 MG/ML AMP IM ONE ×2 (16:45→17:03)
[2020-10-12] MEDS ORDERED: diPHENhydraMINE IV 50 MG/ML 1 ml VIAL (BENADRYL) IM ONE (17:06)
[2020-10-12] MEDS ORDERED: Ziprasidone IM 20 mg VIAL 1 ml VIAL IM ONE ×2 (18:03→18:46)
[2020-10-12] MEDS: Collagenase 250 units/gm OINT 1 tube TOPICAL SCH (19:51)
[2020-10-12] MEDS: Nicotine PATCH 21 MG/24 HR PATCH TRANSDERM SCH (19:52)
[2020-10-12] MEDS: Magnesium Hydroxide LIQ 30 ML UDC PO SCH (19:52)
[2020-10-12] MEDS: Warfarin DAILY REMINDER **NOTE FOLLOW UP SCH (19:53)
[2020-10-12] MEDS ORDERED: Succinylcholine 200 mg VIAL 20 mg/ml 10 ml VIAL (200 mg) ONE (20:19)
[2020-10-12] MEDS ORDERED: Rocuronium 50 mg VIAL 10 mg/ml 5 ml VIAL (50 mg) ONE (20:32)
[2020-10-12] MEDS ORDERED: Etomidate 40 mg/20 ml (2 MG/ML) 20 ml VIAL (40 mg) ONE (20:32)
[2020-10-12] MEDS: Propofol 10 mg/ml 100 ML BTL 100 ML IV SCH ×2 (20:55→23:47)
[2020-10-12] MEDS ORDERED: NS 0.9% 1000 ml BAG 1,000 ML IV SCH (21:00)
[2020-10-12] MEDS ORDERED: Dexmedetomidine 1,000 MCG in NS 0.9% 250 ML IV SCH (21:00)
[2020-10-12 21:19] LABS: PCO2 Arterial 42 mmHg (35-45); PO2 Arterial 136 mmHg (80-100)
[2020-10-12 21:50] LABS: Urine Appearance Clear; Urine Bilirubin Negative (Negative); Urine Blood 3+ (Negative); Urine Color Yellow; Urine Glucose Negative (Negative); Urine Ketones Negative (Negative); Urine Nitrite Negative (Negative); Urine Protein 2+(100 mg/dL) (Negative); Urine Specific Gravity 1.016 (1.002-1.030); Urine Urobilinogen Negative (Negative)
[2020-10-12] MEDS ORDERED: Albuterol/Ipratropium NEB.SOL (2.5/0.5 MG) 3 ML NEB.SOLN INH PRN (21:50)
[2020-10-12 22:00] LABS: Urine Bacteria 1+ (Absent); Urine Red Blood Cell Trace(0-2/hpf) (Absent); Urine White Blood Cell Absent (Absent)
[2020-10-12] MEDS ORDERED: Midazolam 2 mg/2 ml VIAL 1 mg/ml 2 ml VIAL (2 mg) IV SLOW PU ONE (22:33)
[2020-10-12 22:40] LABS: ABS Eosinophils 0.1 10^3/ul (0-0.6); ABS Lymphocytes 0.6 10^3/ul (1.0-4.8); ABS Monocytes 0.6 10^3/ul (0-0.8); ABS Neutrophils 7.7 10^3/ul (1.5-7.7); Eosinophil % 0.6 %; Hematocrit 34 % (42-52); Hemoglobin 11.2 g/dL (14.0-18.0); Lymphocyte % 6.3 %; Mean Corpuscular HGB Conc 33 g/dL (31-36); Mean Corpuscular Hemoglobin 31 pg (27-31); Mean Corpuscular Volume 93 fL (80-94); Mean Platelet Volume 9.7 fL (7.4-10.4); Platelet Count 105 10^3/uL (150-450); Red Blood Count 3.65 10^6 /uL (4.18-5.48); Red Cell Distribution Width 19 % (10-15)
[2020-10-12] MEDS: Thiamine 100 MG/ML 2 ml VIAL 500 MG in NS 0.9% 250 ml 250 ML IV SCH (22:47)
[2020-10-12 23:02] LABS: ALT 16 U/L (7-52); AST 24 U/L (13-39); Albumin 3.8 g/dL (3.2-5.2); Albumin/Globulin Ratio 1.5 (1-3); Alkaline Phosphatase 89 U/L (35-149); Anion Gap 6 mmol/L (2-11); Blood Urea Nitrogen 28 mg/dL (6-24); CO2 Carbon Dioxide 24 mmol/L (22-32); Calcium 8.8 mg/dL (8.6-10.3); Chloride 108 mmol/L (101-111); EGFR African American 40.4 (>60); EGFR Non-African American 33.4 (>60); Globulin 2.6 g/dL (2-4); Glucose 106 mg/dL (70-100); Sodium 138 mmol/L (135-145); Total Protein 6.4 g/dL (6.4-8.9)
[2020-10-12] MEDS: NS 0.9% 1000 ml BAG 1,000 ML IV SCH (23:07)
[2020-10-12 23:17] LABS: TSH Ultra Thyroid Stim Horm 1.38 mcIU/mL (0.34-5.60)
[2020-10-12 23:29] LABS: Vitamin B12 > 1450 pg/mL (180-914)
[2020-10-12] MEDS: Chlorhexidine MOUTHWASH 0.12% 15 ML UDC TOPICAL SCH (23:47)
[2020-10-13] MEDS ORDERED: ZOSYN 3.375 GM x ONE DOSE over 30 miuntes IV
[2020-10-13] MEDS: Propofol 10 mg/ml 100 ML BTL 100 ML IV SCH ×3 (02:53→14:00)
[2020-10-13] MEDS ORDERED: NS 0.9% 1000 ml BAG 1,000 ML IV ONE (03:29)
[2020-10-13] MEDS: ZOSYN 3.375 GM Q8H per EXTENDED INFUSION IV SCH ×3 (04:25→23:53)
[2020-10-13] MEDS: Chlorhexidine MOUTHWASH 0.12% 15 ML UDC TOPICAL SCH ×5 (05:00→23:50)
[2020-10-13] MEDS ORDERED: fentaNYL INFUSION BAG 50MCG/ML 2,500 MCG/50 ML BAG IV SCH ×2 (05:00→14:12)
[2020-10-13] MEDS: Thiamine 100 MG/ML 2 ml VIAL 500 MG in NS 0.9% 250 ml 250 ML IV SCH ×3 (05:55→22:26)
[2020-10-13 06:19] LABS: ABS Eosinophils 0.1 10^3/ul (0-0.6); ABS Lymphocytes 1.3 10^3/ul (1.0-4.8); ABS Monocytes 0.7 10^3/ul (0-0.8); ABS Neutrophils 5.1 10^3/ul (1.5-7.7); Eosinophil % 1.6 %; Hematocrit 31 % (42-52); Hemoglobin 10.2 g/dL (14.0-18.0); Lymphocyte % 17.8 %; Mean Corpuscular HGB Conc 33 g/dL (31-36); Mean Corpuscular Hemoglobin 31 pg (27-31); Mean Corpuscular Volume 94 fL (80-94); Mean Platelet Volume 9.9 fL (7.4-10.4); Platelet Count 93 10^3/uL (150-450); Red Blood Count 3.29 10^6 /uL (4.18-5.48); Red Cell Distribution Width 19 % (10-15); White Blood Count 7.1 10^3/uL (3.5-10.8)
[2020-10-13 06:35] LABS: Albumin 3.4 g/dL (3.2-5.2); Albumin/Globulin Ratio 1.5 (1-3); Calcium 8.2 mg/dL (8.6-10.3); EGFR African American 42.6 (>60); EGFR Non-African American 35.2 (>60); Globulin 2.3 g/dL (2-4); Magnesium 2.7 mg/dL (1.9-2.7); Potassium 3.9 mmol/L (3.5-5.0); Total Bilirubin 0.6 mg/dL (0.2-1.0); Total Protein 5.7 g/dL (6.4-8.9)
[2020-10-13] MEDS: Levothyroxine 100 MCG/5 ML VIAL IV SCH (07:36)
[2020-10-13 07:55] LABS: Troponin I 0.01 ng/mL (<0.03)
[2020-10-13] MEDS: NS 0.9% 1000 ml BAG 1,000 ML IV SCH ×3 (08:00→23:52)
[2020-10-13] MEDS: Nicotine PATCH 14 MG/24 HR PATCH TRANSDERM SCH (08:31)
[2020-10-13] MEDS: Magnesium Hydroxide LIQ 30 ML UDC PO SCH (08:32)
[2020-10-13] MEDS: Nicotine PATCH 21 MG/24 HR PATCH TRANSDERM SCH (09:58)
[2020-10-13] MEDS: Pantoprazole VIAL 40 MG VIAL IV SCH (09:58)
[2020-10-13] MEDS: Collagenase 250 units/gm OINT 1 tube TOPICAL SCH (10:00)
[2020-10-13] MEDS ORDERED: fentaNYL 100 mcg/2 ml 50 MCG/ML VIAL ONE (11:42)
[2020-10-13] MEDS ORDERED: fentaNYL 100 mcg/2 ml 50 MCG/ML VIAL IV SLOW PU ONE (11:42)
[2020-10-13] MEDS ORDERED: Enoxaparin 40 MG/0.4 ML SYR SUBCUT SCH (15:00)
[2020-10-13] MEDS: Heparin 5000 UNITS/ML 1 mL VIAL SUBCUT SCH (23:49)
[2020-10-14] MEDS: Propofol 10 mg/ml 100 ML BTL 100 ML IV SCH ×6 (02:34→23:58)
[2020-10-14] MEDS: Levothyroxine 100 MCG/5 ML VIAL IV SCH (07:59)
[2020-10-14] MEDS: NS 0.9% 1000 ml BAG 1,000 ML IV SCH (07:59)
[2020-10-14] MEDS ORDERED: TAZOBACTAM IV (08:00)
[2020-10-14] MEDS ORDERED: [UNRECOGNIZED DRUG - OTHER] IV (08:00)
[2020-10-14] MEDS ORDERED: PIPERACILLIN IV (08:00)
[2020-10-14] MEDS: Pantoprazole VIAL 40 MG VIAL IV SCH (08:02)
[2020-10-14] MEDS: Heparin 5000 UNITS/ML 1 mL VIAL SUBCUT SCH ×2 (08:03→21:10)
[2020-10-14] MEDS: Thiamine 100 MG/ML 2 ml VIAL 500 MG in NS 0.9% 250 ml 250 ML IV SCH ×3 (08:07→21:08)
[2020-10-14] MEDS: Chlorhexidine MOUTHWASH 0.12% 15 ML UDC TOPICAL SCH ×6 (08:09→23:58)
[2020-10-14] MEDS: Nicotine PATCH 21 MG/24 HR PATCH TRANSDERM SCH (08:18)
[2020-10-14] MEDS: Collagenase 250 units/gm OINT 1 tube TOPICAL SCH (08:19)
[2020-10-14] MEDS: ZOSYN 3.375 GM Q8H per EXTENDED INFUSION IV SCH ×2 (09:46→16:55)
[2020-10-14 11:48] LABS: ABS Eosinophils 0.1 10^3/ul (0-0.6); ABS Lymphocytes 0.8 10^3/ul (1.0-4.8); ABS Monocytes 0.5 10^3/ul (0-0.8); ABS Neutrophils 3.9 10^3/ul (1.5-7.7); Eosinophil % 2.1 %; Hematocrit 30 % (42-52); Hemoglobin 9.7 g/dL (14.0-18.0); Lymphocyte % 15.5 %; Mean Corpuscular HGB Conc 32 g/dL (31-36); Mean Corpuscular Hemoglobin 31 pg (27-31); Mean Corpuscular Volume 96 fL (80-94); Mean Platelet Volume 9.3 fL (7.4-10.4); Platelet Count 101 10^3/uL (150-450); Red Blood Count 3.14 10^6 /uL (4.18-5.48); Red Cell Distribution Width 19 % (10-15); White Blood Count 5.4 10^3/uL (3.5-10.8)
[2020-10-14 11:59] LABS: INR 1.17 (0.82-1.09)
[2020-10-14 12:06] LABS: Albumin 3.1 g/dL (3.2-5.2); Albumin/Globulin Ratio 1.3 (1-3); Calcium 8.1 mg/dL (8.6-10.3); EGFR African American 55.5 (>60); EGFR Non-African American 45.8 (>60); Globulin 2.3 g/dL (2-4); Potassium 3.8 mmol/L (3.5-5.0); Total Bilirubin 0.6 mg/dL (0.2-1.0); Total Protein 5.4 g/dL (6.4-8.9)
[2020-10-14] MEDS: LORazepam 2 mg VIAL 1 ml IV PUSH PRN (22:46)
[2020-10-15] MEDS: ZOSYN 3.375 GM Q8H per EXTENDED INFUSION IV SCH ×3 (00:06→15:58)
[2020-10-15] MEDS ORDERED: LORazepam 2 mg VIAL 1 ml IV PUSH ONE (02:33)
[2020-10-15] MEDS: Chlorhexidine MOUTHWASH 0.12% 15 ML UDC TOPICAL SCH ×5 (03:45→19:24)
[2020-10-15] MEDS: Propofol 10 mg/ml 100 ML BTL 100 ML IV SCH ×6 (03:46→18:13)
[2020-10-15] MEDS: Levothyroxine 100 MCG/5 ML VIAL IV SCH (04:18)
[2020-10-15 04:22] LABS: ABS Basophils 0.1 10^3/ul (0-0.2); ABS Eosinophils 0.1 10^3/ul (0-0.6); ABS Monocytes 0.5 10^3/ul (0-0.8); ABS Neutrophils 3.1 10^3/ul (1.5-7.7); Eosinophil % 2.4 %; Hematocrit 26 % (42-52); Hemoglobin 8.5 g/dL (14.0-18.0); Lymphocyte % 20.2 %; Mean Corpuscular HGB Conc 32 g/dL (31-36); Mean Corpuscular Hemoglobin 31 pg (27-31); Mean Corpuscular Volume 96 fL (80-94); Mean Platelet Volume 9.7 fL (7.4-10.4); Nucleated Red Blood Cells % 0.1; Platelet Count 121 10^3/uL (150-450); Red Blood Count 2.75 10^6 /uL (4.18-5.48); Red Cell Distribution Width 20 % (10-15); White Blood Count 4.7 10^3/uL (3.5-10.8)
[2020-10-15 04:27] LABS: EGFR African American 58.6 (>60); EGFR Non-African American 48.4 (>60); Potassium 3.8 mmol/L (3.5-5.0)
[2020-10-15] MEDS: Thiamine 100 MG/ML 2 ml VIAL 500 MG in NS 0.9% 250 ml 250 ML IV SCH ×3 (04:29→22:19)
[2020-10-15] MEDS ORDERED: Dextrose 50% Syringe 50 ml 25 GM/50 ML SYRINGE IV PUSH ONE (05:03)
[2020-10-15] MEDS: Heparin 5000 UNITS/ML 1 mL VIAL SUBCUT SCH ×2 (07:39→20:08)
[2020-10-15] MEDS: Pantoprazole VIAL 40 MG VIAL IV SCH (07:39)
[2020-10-15] MEDS: Nicotine PATCH 21 MG/24 HR PATCH TRANSDERM SCH (07:44)
[2020-10-15] MEDS: Collagenase 250 units/gm OINT 1 tube TOPICAL SCH ×2 (07:48→19:24)
[2020-10-15] MEDS: fentaNYL INFUSION BAG 50MCG/ML 2,500 MCG/50 ML BAG IV SCH (11:03)
[2020-10-15] MEDS ORDERED: Dextrose 50% Syringe 50 ml 25 GM/50 ML SYRINGE ONE (12:21)
[2020-10-15] MEDS: Dextrose 50% Syringe 50 ml 25 GM/50 ML SYRINGE IV PUSH PRN ×2 (12:23→18:18)
[2020-10-15] MEDS: LORazepam 2 mg VIAL 1 ml IV PUSH PRN ×2 (13:02→21:50)
[2020-10-15] MEDS: Haloperidol 5 mg/ml SDV IV/IM 5 MG/ML AMP IV SLOW PU PRN (13:02)
[2020-10-16] MEDS ORDERED: Dextrose 50% Syringe 50 ml 25 GM/50 ML SYRINGE ONE (00:01)
[2020-10-16] MEDS: Dextrose 50% Syringe 50 ml 25 GM/50 ML SYRINGE IV PUSH PRN (00:03)
[2020-10-16] MEDS: Chlorhexidine MOUTHWASH 0.12% 15 ML UDC TOPICAL SCH ×7 (00:03→23:43)
[2020-10-16] MEDS: ZOSYN 3.375 GM Q8H per EXTENDED INFUSION IV SCH ×4 (00:04→23:43)
[2020-10-16] MEDS: Propofol 10 mg/ml 100 ML BTL 100 ML IV SCH ×7 (01:57→23:32)
[2020-10-16] MEDS: Thiamine 100 MG/ML 2 ml VIAL 500 MG in NS 0.9% 250 ml 250 ML IV SCH (04:55)
[2020-10-16] MEDS: Levothyroxine 100 MCG/5 ML VIAL IV SCH (04:55)
[2020-10-16 05:04] LABS: ABS Eosinophils 0.1 10^3/ul (0-0.6); ABS Lymphocytes 1.1 10^3/ul (1.0-4.8); ABS Monocytes 0.4 10^3/ul (0-0.8); ABS Neutrophils 1.7 10^3/ul (1.5-7.7); Eosinophil % 2.5 %; Hematocrit 29 % (42-52); Hemoglobin 9.9 g/dL (14.0-18.0); Lymphocyte % 33.3 %; Mean Corpuscular HGB Conc 34 g/dL (31-36); Mean Corpuscular Hemoglobin 33 pg (27-31); Mean Corpuscular Volume 96 fL (80-94); Mean Platelet Volume 9.2 fL (7.4-10.4); Nucleated Red Blood Cells % 0.4; Platelet Count 122 10^3/uL (150-450); Red Blood Count 3.03 10^6 /uL (4.18-5.48); Red Cell Distribution Width 20 % (10-15); White Blood Count 3.4 10^3/uL (3.5-10.8)
[2020-10-16 05:49] LABS: ALT 14 U/L (7-52); Albumin 3.1 g/dL (3.2-5.2); Albumin/Globulin Ratio 1.6 (1-3); Alkaline Phosphatase 49 U/L (35-149); Blood Urea Nitrogen 14 mg/dL (6-24); Calcium 7.7 mg/dL (8.6-10.3); EGFR African American 60.5 (>60); Glucose 83 mg/dL (70-100); Total Protein 5.1 g/dL (6.4-8.9)
[2020-10-16 05:51] LABS: Anion Gap 4 mmol/L (2-11); CO2 Carbon Dioxide 21 mmol/L (22-32); Chloride 108 mmol/L (101-111); Sodium 133 mmol/L (135-145)
[2020-10-16 06:10] LABS: INR 1.09 (0.82-1.09)
[2020-10-16 06:17] LABS: Potassium Redraw 3.6 mmol/L (3.5-5.0)
[2020-10-16] MEDS: Pantoprazole VIAL 40 MG VIAL IV SCH (08:29)
[2020-10-16] MEDS: Heparin 5000 UNITS/ML 1 mL VIAL SUBCUT SCH ×2 (08:30→20:19)
[2020-10-16] MEDS: Collagenase 250 units/gm OINT 1 tube TOPICAL SCH (08:30)
[2020-10-16 09:05] LABS: Calcium 8.4 mg/dL (8.6-10.3); EGFR African American 57.6 (>60); EGFR Non-African American 47.6 (>60); Magnesium 1.9 mg/dL (1.9-2.7); Potassium 3.7 mmol/L (3.5-5.0)
[2020-10-16] MEDS: NS 0.9% 500 ml BAG 500 ML IV SCH ×2 (11:04→12:00)
[2020-10-16] MEDS: NS 0.9% 1000 ml BAG 1,000 ML IV SCH ×2 (12:30→20:52)
[2020-10-16] MEDS ORDERED: NS 0.9% 500 ml BAG 500 ML IV SCH (12:30)
[2020-10-16] MEDS: fentaNYL INFUSION BAG 50MCG/ML 2,500 MCG/50 ML BAG IV SCH (12:37)
[2020-10-16] MEDS ORDERED: Propofol 10 MG/ML 20 ML BTL ONE (19:20)
[2020-10-17] MEDS: Propofol 10 mg/ml 100 ML BTL 100 ML IV SCH ×8 (02:33→23:12)
[2020-10-17] MEDS: Chlorhexidine MOUTHWASH 0.12% 15 ML UDC TOPICAL SCH ×5 (03:19→20:38)
[2020-10-17 05:27] LABS: ABS Basophils 0.1 10^3/ul (0-0.2); ABS Eosinophils 0.1 10^3/ul (0-0.6); ABS Lymphocytes 1.2 10^3/ul (1.0-4.8); ABS Monocytes 0.4 10^3/ul (0-0.8); ABS Neutrophils 1.8 10^3/ul (1.5-7.7); Eosinophil % 2.2 %; Hematocrit 29 % (42-52); Lymphocyte % 33.8 %; Mean Corpuscular HGB Conc 35 g/dL (31-36); Mean Corpuscular Hemoglobin 33 pg (27-31); Mean Corpuscular Volume 97 fL (80-94); Nucleated Red Blood Cells % 0.3; Platelet Count 141 10^3/uL (150-450); Red Blood Count 3.01 10^6 /uL (4.18-5.48); Red Cell Distribution Width 20 % (10-15); White Blood Count 3.5 10^3/uL (3.5-10.8)
[2020-10-17] MEDS ORDERED: Propofol 10 MG/ML 20 ML BTL ONE (05:33)
[2020-10-17] MEDS: Levothyroxine 100 MCG/5 ML VIAL IV SCH (05:41)
[2020-10-17 05:43] LABS: ALT 10 U/L (7-52); Albumin/Globulin Ratio 1.5 (1-3); Alkaline Phosphatase 54 U/L (35-149); Blood Urea Nitrogen 14 mg/dL (6-24); CO2 Carbon Dioxide 19 mmol/L (22-32); Calcium 7.9 mg/dL (8.6-10.3); Chloride 110 mmol/L (101-111); EGFR African American 65.8 (>60); EGFR Non-African American 54.4 (>60); Glucose 82 mg/dL (70-100); Sodium 135 mmol/L (135-145)
[2020-10-17] MEDS: NS 0.9% 1000 ml BAG 1,000 ML IV SCH (05:58)
[2020-10-17 06:37] LABS: Anion Gap 6 mmol/L (2-11)
[2020-10-17 07:19] LABS: Potassium Redraw 3.8 mmol/L (3.5-5.0)
[2020-10-17 08:04] LABS: Magnesium 1.6 mg/dL (1.9-2.7); Phosphorus 2.8 mg/dL (2.5-5.0)
[2020-10-17] MEDS: ZOSYN 3.375 GM Q8H per EXTENDED INFUSION IV SCH ×3 (08:08→23:15)
[2020-10-17] MEDS: Heparin 5000 UNITS/ML 1 mL VIAL SUBCUT SCH (08:08)
[2020-10-17] MEDS: Pantoprazole VIAL 40 MG VIAL IV SCH (08:08)
[2020-10-17] MEDS: Collagenase 250 units/gm OINT 1 tube TOPICAL SCH (08:09)
[2020-10-17] MEDS ORDERED: Thiamine 100 MG/ML 2 ml VIAL 250 MG in NS 0.9% 100 ml BAG 100 ML IV SCH (09:00)
[2020-10-17] MEDS ORDERED: NS 0.9% 1000 ml BAG 1,000 ML IV SCH (09:04)
[2020-10-17] MEDS ORDERED: Magnesium Sulf 4 GM/100 ML IV 4,000 MG/100 ML BAG IVPB ONE (10:00)
[2020-10-17] MEDS ORDERED: Potassium Chloride LIQUID 20 MEQ/15 ML LIQUID PO ONE (10:15)
[2020-10-17] MEDS: Haloperidol 5 mg/ml SDV IV/IM 5 MG/ML AMP IV SLOW PU PRN (11:33)
[2020-10-17 16:08] LABS: TSH Ultra Thyroid Stim Horm 0.68 mcIU/mL (0.34-5.60)
[2020-10-17 16:19] LABS: Vitamin B12 > 1450 pg/mL (180-914)
[2020-10-17 16:20] LABS: Thyroid Peroxidase Antibodies < 0.25 IU/mL (<9)
[2020-10-17] MEDS ORDERED: Warfarin DAILY REMINDER **NOTE FOLLOW UP SCH (17:00)
[2020-10-17] MEDS ORDERED: Warfarin per PHARMACY **NOTE FOLLOW UP SCH (17:00)
[2020-10-17] MEDS: Thiamine 100 MG/ML 2 ml VIAL 500 MG in NS 0.9% 250 ml 250 ML IV SCH (18:00)
[2020-10-18] MEDS: Chlorhexidine MOUTHWASH 0.12% 15 ML UDC TOPICAL SCH ×6 (00:18→19:06)
[2020-10-18] MEDS: Thiamine 100 MG/ML 2 ml VIAL 500 MG in NS 0.9% 250 ml 250 ML IV SCH ×3 (00:18→16:05)
[2020-10-18] MEDS ORDERED: NS 0.9% 1000 ml BAG 1,000 ML IV ONE (02:07)
[2020-10-18] MEDS: Propofol 10 mg/ml 100 ML BTL 100 ML IV SCH ×2 (02:41→06:19)
[2020-10-18 04:41] LABS: ABS Eosinophils 0.1 10^3/ul (0-0.6); ABS Lymphocytes 1.2 10^3/ul (1.0-4.8); ABS Monocytes 0.4 10^3/ul (0-0.8); ABS Neutrophils 1.7 10^3/ul (1.5-7.7); Eosinophil % 2.6 %; Hematocrit 29 % (42-52); Hemoglobin 9.3 g/dL (14.0-18.0); Lymphocyte % 35.7 %; Mean Corpuscular HGB Conc 32 g/dL (31-36); Mean Corpuscular Hemoglobin 31 pg (27-31); Mean Corpuscular Volume 96 fL (80-94); Mean Platelet Volume 8.6 fL (7.4-10.4); Nucleated Red Blood Cells % 0.1; Platelet Count 144 10^3/uL (150-450); Red Blood Count 3.03 10^6 /uL (4.18-5.48); Red Cell Distribution Width 20 % (10-15); White Blood Count 3.5 10^3/uL (3.5-10.8)
[2020-10-18] MEDS ORDERED: DOPamine 800 MG/250 ML IVPREM 800 MG/250 ML ML CENTR SCH (05:00)
[2020-10-18 05:08] LABS: INR 1.03 (0.82-1.09)
[2020-10-18] MEDS: Levothyroxine 100 MCG/5 ML VIAL IV SCH (05:18)
[2020-10-18 05:42] LABS: Albumin 2.9 g/dL (3.2-5.2); Albumin/Globulin Ratio 1.4 (1-3); Calcium 8.1 mg/dL (8.6-10.3); EGFR African American 62.5 (>60); EGFR Non-African American 51.7 (>60); Globulin 2.1 g/dL (2-4); Potassium 4.1 mmol/L (3.5-5.0); Total Bilirubin 0.4 mg/dL (0.2-1.0)
[2020-10-18 07:47] LABS: Phosphorus 2.8 mg/dL (2.5-5.0)
[2020-10-18] MEDS: Collagenase 250 units/gm OINT 1 tube TOPICAL SCH (08:06)
[2020-10-18] MEDS: Pantoprazole VIAL 40 MG VIAL IV SCH (08:06)
[2020-10-18] MEDS: fentaNYL INFUSION BAG 50MCG/ML 2,500 MCG/50 ML BAG IV SCH ×2 (08:24→22:17)
[2020-10-18] MEDS: ZOSYN 3.375 GM Q8H per EXTENDED INFUSION IV SCH ×2 (09:21→17:57)
[2020-10-18 09:53] LABS: Free T4 0.71 ng/dL (0.61-1.12)
[2020-10-18] MEDS ORDERED: Midazolam 50 MG VIAL IV DRIP 50 ML IV SCH (10:00)
[2020-10-18] MEDS: Midazolam 50 MG VIAL IV DRIP 50 ML IV SCH ×3 (10:14→19:31)
[2020-10-18] MEDS ORDERED: LORazepam 2 mg VIAL 1 ml ONE (10:21)
[2020-10-18] MEDS: LORazepam 2 mg VIAL 1 ml IV PUSH PRN (10:23)
[2020-10-18] MEDS ORDERED: LORazepam 2 mg VIAL 1 ml IV PUSH ONE (10:45)
[2020-10-19] MEDS: Midazolam 50 MG VIAL IV DRIP 50 ML IV SCH ×6 (01:24→21:37)
[2020-10-19] MEDS: Chlorhexidine MOUTHWASH 0.12% 15 ML UDC TOPICAL SCH ×7 (01:27→23:49)
[2020-10-19] MEDS: ZOSYN 3.375 GM Q8H per EXTENDED INFUSION IV SCH ×3 (01:27→15:14)
[2020-10-19] MEDS: Thiamine 100 MG/ML 2 ml VIAL 500 MG in NS 0.9% 250 ml 250 ML IV SCH ×4 (02:23→23:49)
[2020-10-19] MEDS: Levothyroxine 100 MCG/5 ML VIAL IV SCH (05:31)
[2020-10-19] MEDS: Saline FLUSH-CENTRAL 10 ML SYRINGE CENT\\PICC SCH ×2 (05:31→21:11)
[2020-10-19 08:12] LABS: Hematocrit 31 % (42-52); Hemoglobin 10.2 g/dL (14.0-18.0); Mean Corpuscular HGB Conc 33 g/dL (31-36); Mean Corpuscular Hemoglobin 32 pg (27-31); Mean Corpuscular Volume 95 fL (80-94); Mean Platelet Volume 8.4 fL (7.4-10.4); Platelet Count 154 10^3/uL (150-450); Red Blood Count 3.25 10^6 /uL (4.18-5.48); Red Cell Distribution Width 20 % (10-15); White Blood Count 5.1 10^3/uL (3.5-10.8)
[2020-10-19 08:23] LABS: Calcium 8.7 mg/dL (8.6-10.3); Magnesium 1.7 mg/dL (1.9-2.7); Potassium 4.5 mmol/L (3.5-5.0)
[2020-10-19 08:29] LABS: EGFR African American 65.3 (>60); EGFR Non-African American 53.9 (>60)
[2020-10-19] MEDS: Collagenase 250 units/gm OINT 1 tube TOPICAL SCH (09:20)
[2020-10-19] MEDS: Pantoprazole VIAL 40 MG VIAL IV SCH (09:20)
[2020-10-19] MEDS ORDERED: Magnesium Sulfate 2 gm BAG 2 GM/50 ML BAG IVPB ONE (10:00)
[2020-10-19] MEDS: fentaNYL INFUSION BAG 50MCG/ML 2,500 MCG/50 ML BAG IV SCH ×2 (10:35→16:45)
[2020-10-19] MEDS ORDERED: NS 0.9% 500 ml BAG 500 ML IV ONE (11:17)
[2020-10-19] MEDS ORDERED: Lorazepam PYXIS KEY ONE ×2 (16:49→18:11)
[2020-10-19] MEDS ORDERED: fentaNYL 100 mcg/2 ml 50 MCG/ML VIAL ONE (16:50)
[2020-10-19] MEDS ORDERED: LORazepam 2 mg VIAL 1 ml ONE (16:50)
[2020-10-19] MEDS ORDERED: Ampicillin ADVAN 2 GM in NS 0.9% 100 ml BAG 100 ML IVPB SCH (17:00)
[2020-10-20] MEDS: ZOSYN 3.375 GM Q8H per EXTENDED INFUSION IV SCH ×4 (01:13→23:45)
[2020-10-20] MEDS: fentaNYL INFUSION BAG 50MCG/ML 2,500 MCG/50 ML BAG IV SCH (04:21)
[2020-10-20] MEDS: Midazolam 50 MG VIAL IV DRIP 50 ML IV SCH ×3 (04:30→20:29)
[2020-10-20] MEDS: Levothyroxine 100 MCG/5 ML VIAL IV SCH (04:30)
[2020-10-20] MEDS: Chlorhexidine MOUTHWASH 0.12% 15 ML UDC TOPICAL SCH ×6 (04:30→23:45)
[2020-10-20 04:49] LABS: ABS Eosinophils 0.1 10^3/ul (0-0.6); ABS Lymphocytes 1.3 10^3/ul (1.0-4.8); ABS Monocytes 0.5 10^3/ul (0-0.8); ABS Neutrophils 2.5 10^3/ul (1.5-7.7); Eosinophil % 2.1 %; Hematocrit 32 % (42-52); Hemoglobin 10.3 g/dL (14.0-18.0); Lymphocyte % 29.3 %; Mean Corpuscular HGB Conc 32 g/dL (31-36); Mean Corpuscular Hemoglobin 30 pg (27-31); Mean Corpuscular Volume 95 fL (80-94); Mean Platelet Volume 8.2 fL (7.4-10.4); Platelet Count 171 10^3/uL (150-450); Red Blood Count 3.41 10^6 /uL (4.18-5.48); Red Cell Distribution Width 20 % (10-15); White Blood Count 4.5 10^3/uL (3.5-10.8)
[2020-10-20 05:15] LABS: Calcium 8.4 mg/dL (8.6-10.3); Magnesium 1.7 mg/dL (1.9-2.7); Potassium 4.3 mmol/L (3.5-5.0)
[2020-10-20 05:21] LABS: EGFR African American 65.3 (>60); EGFR Non-African American 53.9 (>60); Phosphorus 2.8 mg/dL (2.5-5.0)
[2020-10-20] MEDS ORDERED: Magnesium Sulfate IV 3 GM in NS 0.9% 100 ml BAG 100 ML IVPB ONE (05:32)
[2020-10-20] MEDS: Collagenase 250 units/gm OINT 1 tube TOPICAL SCH (08:18)
[2020-10-20] MEDS: Saline FLUSH-CENTRAL 10 ML SYRINGE CENT\\PICC SCH ×2 (08:18→21:21)
[2020-10-20] MEDS: Pantoprazole VIAL 40 MG VIAL IV SCH (08:18)
[2020-10-20] MEDS: Thiamine 100 MG/ML 2 ml VIAL 500 MG in NS 0.9% 250 ml 250 ML IV SCH (09:31)
[2020-10-20] MEDS ORDERED: Thiamine 100 MG/ML 2 ml VIAL 250 MG in NS 0.9% 100 ml BAG 100 ML IV SCH (11:00)
[2020-10-20] MEDS: LORazepam 2 mg VIAL 1 ml IV PUSH PRN (15:31)
[2020-10-20] MEDS: Thiamine 100 MG/ML 2 ml VIAL 250 MG in NS 0.9% 100 ml BAG 100 ML IV SCH (19:12)
[2020-10-20] MEDS ORDERED: Furosemide 40 mg/4 ml IV VIAL IV SLOW PU ONE (23:29)
[2020-10-20] MEDS: Acetylcysteine INHALATION SOL 200 MG/ML NEB.SOLN 10 ML INH SCH (23:48)
[2020-10-21] MEDS: Midazolam 50 MG VIAL IV DRIP 50 ML IV SCH ×2 (01:52→10:19)
[2020-10-21] MEDS ORDERED: Acetylcysteine INHALATION SOL 200 MG/ML NEB.SOLN 10 ML INH SCH ×2 (05:16→08:00)
[2020-10-21] MEDS: Acetylcysteine INHALATION SOL 200 MG/ML NEB.SOLN 10 ML INH SCH (05:20)
[2020-10-21] MEDS: fentaNYL INFUSION BAG 50MCG/ML 2,500 MCG/50 ML BAG IV SCH (05:25)
[2020-10-21] MEDS: Levothyroxine 100 MCG/5 ML VIAL IV SCH (05:26)
[2020-10-21] MEDS: Chlorhexidine MOUTHWASH 0.12% 15 ML UDC TOPICAL SCH ×6 (05:26→23:36)
[2020-10-21 05:43] LABS: ABS Eosinophils 0.1 10^3/ul (0-0.6); ABS Lymphocytes 1.4 10^3/ul (1.0-4.8); ABS Monocytes 0.8 10^3/ul (0-0.8); ABS Neutrophils 2.8 10^3/ul (1.5-7.7); Eosinophil % 2.5 %; Hematocrit 32 % (42-52); Hemoglobin 10.5 g/dL (14.0-18.0); Lymphocyte % 26.7 %; Mean Corpuscular HGB Conc 33 g/dL (31-36); Mean Corpuscular Hemoglobin 31 pg (27-31); Mean Corpuscular Volume 94 fL (80-94); Mean Platelet Volume 8.2 fL (7.4-10.4); Nucleated Red Blood Cells % 0.1; Platelet Count 187 10^3/uL (150-450); Red Cell Distribution Width 19 % (10-15); White Blood Count 5.1 10^3/uL (3.5-10.8)
[2020-10-21 06:03] LABS: Calcium 8.8 mg/dL (8.6-10.3); EGFR Non-African American 51.2 (>60); Magnesium 1.7 mg/dL (1.9-2.7); Phosphorus 2.8 mg/dL (2.5-5.0); Potassium 3.9 mmol/L (3.5-5.0)
[2020-10-21] MEDS ORDERED: Potassium Chloride LIQUID 20 MEQ/15 ML LIQUID PO ONE (06:09)
[2020-10-21] MEDS ORDERED: Magnesium Sulf 4 GM/100 ML IV 4,000 MG/100 ML BAG IVPB ONE (06:09)
[2020-10-21] MEDS: ZOSYN 3.375 GM Q8H per EXTENDED INFUSION IV SCH ×3 (09:01→23:35)
[2020-10-21] MEDS: Pantoprazole VIAL 40 MG VIAL IV SCH (09:01)
[2020-10-21] MEDS: Collagenase 250 units/gm OINT 1 tube TOPICAL SCH (09:02)
[2020-10-21] MEDS: Saline FLUSH-CENTRAL 10 ML SYRINGE CENT\\PICC SCH ×2 (09:11→21:12)
[2020-10-21] MEDS ORDERED: Dexmedetomidine 1,000 MCG in NS 0.9% 250 ml 240 ML IV SCH (10:00)
[2020-10-21] MEDS ORDERED: Acetylcysteine INHALATION SOL 200 MG/ML NEB.SOLN 10 ML INH PRN (10:36)
[2020-10-21] MEDS: Ketamine 500 mg in 500 mL NS for Continuous Infusion IV SCH ×2 (11:12→19:45)
[2020-10-21] MEDS ORDERED: NS 0.9% 500 ml BAG 500 ML IVPB ONE (13:15)
[2020-10-21] MEDS ORDERED: fentaNYL 100 mcg/2 ml 50 MCG/ML VIAL ONE ×2 (15:07→22:03)
[2020-10-21] MEDS: fentaNYL 100 mcg/2 ml 50 MCG/ML VIAL IV SLOW PU PRN ×2 (15:10→21:21)
[2020-10-21] MEDS ORDERED: LORazepam 2 mg VIAL 1 ml ONE (15:27)
[2020-10-21] MEDS ORDERED: LORazepam 2 mg VIAL 1 ml IV PUSH ONE (15:30)
[2020-10-21] MEDS: Thiamine 100 MG/ML 2 ml VIAL 250 MG in NS 0.9% 100 ml BAG 100 ML IV SCH (19:40)
[2020-10-21] MEDS ORDERED: fentaNYL 100 mcg/2 ml 50 MCG/ML VIAL IV SLOW PU ONE (22:02)
[2020-10-21] MEDS ORDERED: Midazolam 5 mg/5 ml VIAL 1 mg/ml 5 ml VIAL (5 mg) ONE (23:22)
[2020-10-21] MEDS ORDERED: Lorazepam PYXIS KEY PRN (23:25)
[2020-10-21] MEDS ORDERED: Midazolam 5 mg/5 ml VIAL 1 mg/ml 5 ml VIAL (5 mg) IV SLOW PU ONE (23:28)
[2020-10-22] MEDS ORDERED: Propofol 10 mg/ml 100 ML BTL 100 ML ONE (00:18)
[2020-10-22] MEDS: Propofol 10 mg/ml 100 ML BTL 100 ML IV SCH ×2 (00:35→06:01)
[2020-10-22] MEDS: Chlorhexidine MOUTHWASH 0.12% 15 ML UDC TOPICAL SCH ×6 (03:25→23:32)
[2020-10-22] MEDS: Ketamine 500 mg in 500 mL NS for Continuous Infusion IV SCH ×3 (03:25→19:25)
[2020-10-22 04:48] LABS: ABS Eosinophils 0.1 10^3/ul (0-0.6); ABS Lymphocytes 0.9 10^3/ul (1.0-4.8); ABS Monocytes 0.6 10^3/ul (0-0.8); ABS Neutrophils 2.8 10^3/ul (1.5-7.7); Eosinophil % 1.8 %; Hematocrit 28 % (42-52); Hemoglobin 9.5 g/dL (14.0-18.0); Lymphocyte % 19.3 %; Mean Corpuscular HGB Conc 34 g/dL (31-36); Mean Corpuscular Hemoglobin 32 pg (27-31); Mean Corpuscular Volume 94 fL (80-94); Mean Platelet Volume 8.6 fL (7.4-10.4); Nucleated Red Blood Cells % 0.1; Platelet Count 175 10^3/uL (150-450); Red Blood Count 2.97 10^6 /uL (4.18-5.48); Red Cell Distribution Width 19 % (10-15); White Blood Count 4.4 10^3/uL (3.5-10.8)
[2020-10-22 05:14] LABS: Calcium 7.8 mg/dL (8.6-10.3); EGFR African American 74.3 (>60); EGFR Non-African American 61.4 (>60); Magnesium 1.8 mg/dL (1.9-2.7); Phosphorus 2.1 mg/dL (2.5-5.0)
[2020-10-22] MEDS ORDERED: Potassium Phosphate IV 10 MMOLE in NS 0.9% 250 ml 250 ML IVPB ONE (05:40)
[2020-10-22] MEDS ORDERED: Magnesium Sulfate IV 3 GM in NS 0.9% 100 ml BAG 100 ML IVPB ONE (05:40)
[2020-10-22] MEDS: Levothyroxine 100 MCG/5 ML VIAL IV SCH (05:52)
[2020-10-22] MEDS ORDERED: Magnesium Sulfate 2 gm BAG 2 GM/50 ML BAG IVPB ONE (07:55)
[2020-10-22] MEDS: Saline FLUSH-CENTRAL 10 ML SYRINGE CENT\\PICC SCH ×2 (08:08→20:47)
[2020-10-22] MEDS: ZOSYN 3.375 GM Q8H per EXTENDED INFUSION IV SCH (08:57)
[2020-10-22] MEDS: Pantoprazole VIAL 40 MG VIAL IV SCH (08:58)
[2020-10-22] MEDS: Collagenase 250 units/gm OINT 1 tube TOPICAL SCH (09:00)
[2020-10-22] MEDS ORDERED: Rocuronium 50 mg VIAL 10 mg/ml 5 ml VIAL (50 mg) ONE ×2 (09:03→11:01)
[2020-10-22] MEDS ORDERED: fentaNYL 100 mcg/2 ml 50 MCG/ML VIAL ONE (09:07)
[2020-10-22] MEDS ORDERED: fentaNYL 100 mcg/2 ml 50 MCG/ML VIAL IV SLOW PU PRN (09:10)
[2020-10-22] MEDS ORDERED: PHENobarbital IV 65 MG/ML 1 ml VIAL IV SCH ×2 (10:00→18:30)
[2020-10-22] MEDS ORDERED: Lorazepam PYXIS KEY PRN ×2 (10:19→13:35)
[2020-10-22] MEDS ORDERED: LORazepam 2 mg VIAL 1 ml IV PUSH ONE ×2 (10:19→13:35)
[2020-10-22] MEDS ORDERED: Lorazepam PYXIS KEY ONE (10:20)
[2020-10-22] MEDS ORDERED: LORazepam 2 mg VIAL 1 ml ONE (10:20)
[2020-10-22] MEDS ORDERED: PHENobarbital IV 65 MG/ML 1 ml VIAL IV ONE (10:30)
[2020-10-22] MEDS ORDERED: Rocuronium 50 mg VIAL 10 mg/ml 5 ml VIAL (50 mg) IV ONE ×2 (10:53→12:17)
[2020-10-22] MEDS ORDERED: fentaNYL 100 mcg/2 ml 50 MCG/ML VIAL IV SLOW PU ONE (12:16)
[2020-10-22] MEDS ORDERED: NS 0.9% 100 ml BAG 100 ML ONE (17:50)
[2020-10-22] MEDS: Thiamine 100 MG/ML 2 ml VIAL 250 MG in NS 0.9% 100 ml BAG 100 ML IV SCH (18:02)
[2020-10-22] MEDS: LORazepam 2 mg VIAL 1 ml IV PUSH PRN (20:30)
[2020-10-22] MEDS: PHENobarbital IV 65 MG/ML 1 ml VIAL IV SCH (23:34)
[2020-10-23] MEDS: KETAMINE HCL IV SCH ×2 (03:00→07:58)
[2020-10-23] MEDS: NS 0.9% IV SCH ×2 (03:00→07:58)
[2020-10-23] MEDS: Chlorhexidine MOUTHWASH 0.12% 15 ML UDC TOPICAL SCH ×4 (03:15→17:55)
[2020-10-23] MEDS: LORazepam 2 mg VIAL 1 ml IV PUSH PRN ×2 (03:16→19:51)
[2020-10-23 04:34] LABS: ABS Eosinophils 0.1 10^3/ul (0-0.6); ABS Lymphocytes 0.9 10^3/ul (1.0-4.8); ABS Monocytes 0.8 10^3/ul (0-0.8); ABS Neutrophils 3.4 10^3/ul (1.5-7.7); Eosinophil % 1.7 %; Hematocrit 31 % (42-52); Lymphocyte % 16.4 %; Mean Corpuscular HGB Conc 32 g/dL (31-36); Mean Corpuscular Hemoglobin 30 pg (27-31); Mean Corpuscular Volume 94 fL (80-94); Mean Platelet Volume 8.3 fL (7.4-10.4); Platelet Count 188 10^3/uL (150-450); Red Blood Count 3.29 10^6 /uL (4.18-5.48); Red Cell Distribution Width 19 % (10-15); White Blood Count 5.2 10^3/uL (3.5-10.8)
[2020-10-23 04:54] LABS: Blood Urea Nitrogen 14 mg/dL (6-24); CO2 Carbon Dioxide 24 mmol/L (22-32); Calcium 8.2 mg/dL (8.6-10.3); EGFR African American 75.8 (>60); EGFR Non-African American 62.6 (>60); Glucose 79 mg/dL (70-100); Magnesium 1.9 mg/dL (1.9-2.7); Phosphorus 2.5 mg/dL (2.5-5.0); Potassium 3.9 mmol/L (3.5-5.0); Sodium 143 mmol/L (135-145)
[2020-10-23 04:55] LABS: Anion Gap 6 mmol/L (2-11); Chloride 113 mmol/L (101-111)
[2020-10-23] MEDS ORDERED: Potassium Chloride LIQUID 20 MEQ/15 ML LIQUID PO ONE (05:17)
[2020-10-23] MEDS ORDERED: Magnesium Sulfate 2 gm BAG 2 GM/50 ML BAG IVPB ONE (05:17)
[2020-10-23] MEDS: Levothyroxine 100 MCG/5 ML VIAL IV SCH (05:55)
[2020-10-23] MEDS: PHENobarbital IV 65 MG/ML 1 ml VIAL IV SCH (06:38)
[2020-10-23] MEDS: Saline FLUSH-CENTRAL 10 ML SYRINGE CENT\\PICC SCH ×2 (07:57→20:46)
[2020-10-23] MEDS: Collagenase 250 units/gm OINT 1 tube TOPICAL SCH (07:57)
[2020-10-23] MEDS: Pantoprazole VIAL 40 MG VIAL IV SCH (07:57)
[2020-10-23] MEDS ORDERED: PHENobarbital IV 65 MG/ML 1 ml VIAL IV SCH (16:00)
[2020-10-23 16:53] LABS: PCO2 Arterial 41 mmHg (35-45); PO2 Arterial 66 mmHg (80-100)
[2020-10-23] MEDS ORDERED: Alteplase (CATHFLO) 2 MG VIAL IV ONE (17:00)
[2020-10-23] MEDS: Thiamine 100 MG/ML 2 ml VIAL 250 MG in NS 0.9% 100 ml BAG 100 ML IV SCH (17:47)
[2020-10-23] MEDS ORDERED: Oxymetazoline 0.05% NASAL SPR 15 ML BTL RIGHT NARE ONE ×2 (19:38→21:01)
[2020-10-24 04:40] LABS: ABS Eosinophils 0.1 10^3/ul (0-0.6); ABS Lymphocytes 0.9 10^3/ul (1.0-4.8); ABS Monocytes 0.8 10^3/ul (0-0.8); ABS Neutrophils 4.3 10^3/ul (1.5-7.7); Eosinophil % 1.7 %; Hematocrit 30 % (42-52); Hemoglobin 10.5 g/dL (14.0-18.0); Mean Corpuscular HGB Conc 35 g/dL (31-36); Mean Corpuscular Hemoglobin 32 pg (27-31); Mean Corpuscular Volume 93 fL (80-94); Mean Platelet Volume 8.5 fL (7.4-10.4); Platelet Count 204 10^3/uL (150-450); Red Blood Count 3.27 10^6 /uL (4.18-5.48); Red Cell Distribution Width 20 % (10-15); White Blood Count 6.1 10^3/uL (3.5-10.8)
[2020-10-24 04:57] LABS: EGFR African American 66.4 (>60); EGFR Non-African American 54.9 (>60); Magnesium 2.3 mg/dL (1.9-2.7); Phosphorus 3.1 mg/dL (2.5-5.0); Potassium 4.4 mmol/L (3.5-5.0)
[2020-10-24] MEDS: Levothyroxine 100 MCG/5 ML VIAL IV SCH (06:27)
[2020-10-24] MEDS: Pantoprazole VIAL 40 MG VIAL IV SCH (11:25)
[2020-10-24] MEDS: Saline FLUSH-CENTRAL 10 ML SYRINGE CENT\\PICC SCH ×2 (11:26→20:25)
[2020-10-24] MEDS: Collagenase 250 units/gm OINT 1 tube TOPICAL SCH (11:26)
[2020-10-24] MEDS: Thiamine 100 MG/ML 2 ml VIAL 250 MG in NS 0.9% 100 ml BAG 100 ML IV SCH (17:36)
[2020-10-24] MEDS: LORazepam 2 mg VIAL 1 ml IV PUSH PRN (20:52)
[2020-10-25 04:30] LABS: ABS Basophils 0.1 10^3/ul (0-0.2); ABS Eosinophils 0.1 10^3/ul (0-0.6); ABS Lymphocytes 0.8 10^3/ul (1.0-4.8); ABS Monocytes 0.5 10^3/ul (0-0.8); ABS Neutrophils 3.7 10^3/ul (1.5-7.7); Eosinophil % 1.5 %; Hematocrit 32 % (42-52); Hemoglobin 10.7 g/dL (14.0-18.0); Lymphocyte % 15.5 %; Mean Corpuscular HGB Conc 33 g/dL (31-36); Mean Corpuscular Hemoglobin 31 pg (27-31); Mean Corpuscular Volume 93 fL (80-94); Mean Platelet Volume 8.2 fL (7.4-10.4); Platelet Count 192 10^3/uL (150-450); Red Blood Count 3.47 10^6 /uL (4.18-5.48); Red Cell Distribution Width 19 % (10-15); White Blood Count 5.2 10^3/uL (3.5-10.8)
[2020-10-25 04:46] LABS: Calcium 9.2 mg/dL (8.6-10.3); EGFR African American 72.9 (>60); EGFR Non-African American 60.2 (>60); Phosphorus 2.8 mg/dL (2.5-5.0); Potassium 4.1 mmol/L (3.5-5.0)
[2020-10-25] MEDS: Levothyroxine 100 MCG/5 ML VIAL IV SCH (05:37)
[2020-10-25] MEDS: Saline FLUSH-CENTRAL 10 ML SYRINGE CENT\\PICC SCH ×2 (08:04→21:11)
[2020-10-25] MEDS: Pantoprazole VIAL 40 MG VIAL IV SCH (08:04)
[2020-10-25] MEDS: Collagenase 250 units/gm OINT 1 tube TOPICAL SCH (08:04)
[2020-10-25] MEDS: D5W 1/2 NS 1000 ml BAG 1,000 ML IV SCH (21:10)
[2020-10-26] MEDS: LORazepam 2 mg VIAL 1 ml IV PUSH PRN (00:58)
[2020-10-26] MEDS ORDERED: Metoprolol Tartrate 5 mg VIAL 5 ml VIAL (1 mg/ml) IV PRN (02:14)
[2020-10-26] MEDS ORDERED: Lorazepam PYXIS KEY PRN (03:34)
[2020-10-26] MEDS ORDERED: LORazepam 2 mg VIAL 1 ml IV PUSH ONE (03:34)
[2020-10-26] MEDS ORDERED: Lorazepam PYXIS KEY ONE (03:45)
[2020-10-26] MEDS ORDERED: LORazepam 2 mg VIAL 1 ml ONE (03:45)
[2020-10-26 05:05] LABS: ABS Eosinophils 0.1 10^3/ul (0-0.6); ABS Lymphocytes 0.8 10^3/ul (1.0-4.8); ABS Monocytes 0.7 10^3/ul (0-0.8); ABS Neutrophils 4.6 10^3/ul (1.5-7.7); Eosinophil % 0.9 %; Hematocrit 34 % (42-52); Hemoglobin 11.4 g/dL (14.0-18.0); Lymphocyte % 13.3 %; Mean Corpuscular HGB Conc 33 g/dL (31-36); Mean Corpuscular Hemoglobin 31 pg (27-31); Mean Corpuscular Volume 93 fL (80-94); Mean Platelet Volume 8.6 fL (7.4-10.4); Platelet Count 214 10^3/uL (150-450); Red Blood Count 3.72 10^6 /uL (4.18-5.48); Red Cell Distribution Width 18 % (10-15); White Blood Count 6.1 10^3/uL (3.5-10.8)
[2020-10-26 05:21] LABS: Calcium 9.3 mg/dL (8.6-10.3); EGFR African American 73.6 (>60); EGFR Non-African American 60.8 (>60); Magnesium 1.9 mg/dL (1.9-2.7); Phosphorus 2.5 mg/dL (2.5-5.0)
[2020-10-26] MEDS: Levothyroxine 100 MCG/5 ML VIAL IV SCH (06:11)
[2020-10-26] MEDS: Pantoprazole VIAL 40 MG VIAL IV SCH (09:01)
[2020-10-26] MEDS: Saline FLUSH-CENTRAL 10 ML SYRINGE CENT\\PICC SCH ×2 (09:02→20:00)
[2020-10-26] MEDS: Collagenase 250 units/gm OINT 1 tube TOPICAL SCH (10:48)
[2020-10-26] MEDS: D5W 1/2 NS 1000 ml BAG 1,000 ML IV SCH (10:48)
[2020-10-26] MEDS ORDERED: Haloperidol 5 mg/ml SDV IV/IM 5 MG/ML AMP IV SLOW PU PRN (19:15)
[2020-10-27 05:18] LABS: ABS Basophils 0.1 10^3/ul (0-0.2); ABS Eosinophils 0.1 10^3/ul (0-0.6); ABS Lymphocytes 1.1 10^3/ul (1.0-4.8); ABS Monocytes 0.7 10^3/ul (0-0.8); ABS Neutrophils 4.1 10^3/ul (1.5-7.7); Eosinophil % 1.9 %; Hematocrit 36 % (42-52); Hemoglobin 11.7 g/dL (14.0-18.0); Mean Corpuscular HGB Conc 33 g/dL (31-36); Mean Corpuscular Hemoglobin 30 pg (27-31); Mean Corpuscular Volume 92 fL (80-94); Mean Platelet Volume 8.5 fL (7.4-10.4); Platelet Count 218 10^3/uL (150-450); Red Blood Count 3.86 10^6 /uL (4.18-5.48); Red Cell Distribution Width 19 % (10-15)
[2020-10-27 05:36] LABS: Calcium 9.4 mg/dL (8.6-10.3); EGFR African American 62.5 (>60); EGFR Non-African American 51.7 (>60); Magnesium 1.9 mg/dL (1.9-2.7); Phosphorus 2.4 mg/dL (2.5-5.0); Potassium 3.8 mmol/L (3.5-5.0)
[2020-10-27] MEDS: Levothyroxine 100 MCG/5 ML VIAL IV SCH (05:51)
[2020-10-27] MEDS ORDERED: Potassium Chloride LIQUID 20 MEQ/15 ML LIQUID PO ONE (08:00)
[2020-10-27] MEDS ORDERED: Magnesium Sulfate 2 gm BAG 2 GM/50 ML BAG IVPB ONE (08:00)
[2020-10-27] MEDS: Pantoprazole VIAL 40 MG VIAL IV SCH (08:05)
[2020-10-27] MEDS: Saline FLUSH-CENTRAL 10 ML SYRINGE CENT\\PICC SCH ×2 (08:06→20:40)
[2020-10-27] MEDS: Collagenase 250 units/gm OINT 1 tube TOPICAL SCH (08:06)
[2020-10-27] MEDS: Heparin 5000 UNITS/ML 1 mL VIAL SUBCUT SCH ×2 (14:17→22:34)
[2020-10-28] MEDS: Heparin 5000 UNITS/ML 1 mL VIAL SUBCUT SCH (05:36)
[2020-10-28 06:12] LABS: ABS Basophils 0.1 10^3/ul (0-0.2); ABS Eosinophils 0.1 10^3/ul (0-0.6); ABS Monocytes 0.7 10^3/ul (0-0.8); Eosinophil % 1.7 %; Hematocrit 34 % (42-52); Hemoglobin 11.2 g/dL (14.0-18.0); Mean Corpuscular HGB Conc 33 g/dL (31-36); Mean Corpuscular Hemoglobin 30 pg (27-31); Mean Corpuscular Volume 92 fL (80-94); Mean Platelet Volume 8.8 fL (7.4-10.4); Platelet Count 193 10^3/uL (150-450); Red Blood Count 3.71 10^6 /uL (4.18-5.48); Red Cell Distribution Width 18 % (10-15); White Blood Count 7.9 10^3/uL (3.5-10.8)
[2020-10-28 06:50] LABS: Calcium 9.1 mg/dL (8.6-10.3); EGFR African American 70.1 (>60); Magnesium 2.1 mg/dL (1.9-2.7); Phosphorus 2.8 mg/dL (2.5-5.0)
[2020-10-28] MEDS: Collagenase 250 units/gm OINT 1 tube TOPICAL SCH (09:11)
[2020-10-28] MEDS: Pantoprazole VIAL 40 MG VIAL IV SCH (09:11)
[2020-10-28] MEDS: Saline FLUSH-CENTRAL 10 ML SYRINGE CENT\\PICC SCH ×2 (09:24→20:29)
[2020-10-28 12:02] LABS: TSH Ultra Thyroid Stim Horm 1.42 mcIU/mL (0.34-5.60)
[2020-10-28] MEDS ORDERED: Alteplase (CATHFLO) 2 MG VIAL IV ONE (20:57)
[2020-10-29 04:33] LABS: ABS Basophils 0.1 10^3/ul (0-0.2); ABS Eosinophils 0.2 10^3/ul (0-0.6); ABS Lymphocytes 0.9 10^3/ul (1.0-4.8); ABS Monocytes 0.7 10^3/ul (0-0.8); ABS Neutrophils 4.7 10^3/ul (1.5-7.7); Eosinophil % 2.8 %; Hematocrit 35 % (42-52); Hemoglobin 11.5 g/dL (14.0-18.0); Lymphocyte % 14.3 %; Mean Corpuscular HGB Conc 33 g/dL (31-36); Mean Corpuscular Hemoglobin 30 pg (27-31); Mean Corpuscular Volume 91 fL (80-94); Mean Platelet Volume 9.3 fL (7.4-10.4); Platelet Count 195 10^3/uL (150-450); Red Blood Count 3.82 10^6 /uL (4.18-5.48); Red Cell Distribution Width 18 % (10-15); White Blood Count 6.5 10^3/uL (3.5-10.8)
[2020-10-29 04:45] LABS: Calcium 9.2 mg/dL (8.6-10.3); EGFR African American 63.1 (>60); EGFR Non-African American 52.1 (>60); Phosphorus 3.1 mg/dL (2.5-5.0); Potassium 4.2 mmol/L (3.5-5.0)
[2020-10-29] MEDS: Collagenase 250 units/gm OINT 1 tube TOPICAL SCH (09:03)
[2020-10-29] MEDS: Pantoprazole VIAL 40 MG VIAL IV SCH (09:03)
[2020-10-29] MEDS: Saline FLUSH-CENTRAL 10 ML SYRINGE CENT\\PICC SCH ×2 (09:04→20:10)
[2020-10-30] MEDS: Pantoprazole VIAL 40 MG VIAL IV SCH (08:25)
[2020-10-30] MEDS: Collagenase 250 units/gm OINT 1 tube TOPICAL SCH (08:26)
[2020-10-30] MEDS: Saline FLUSH-CENTRAL 10 ML SYRINGE CENT\\PICC SCH ×2 (08:36→21:36)
[2020-10-31 08:26] LABS: ABS Basophils 0.1 10^3/ul (0-0.2); ABS Lymphocytes 0.5 10^3/ul (1.0-4.8); ABS Monocytes 0.5 10^3/ul (0-0.8); Eosinophil % 0.8 %; Hematocrit 35 % (42-52); Hemoglobin 11.6 g/dL (14.0-18.0); Lymphocyte % 10.7 %; Mean Corpuscular HGB Conc 33 g/dL (31-36); Mean Corpuscular Hemoglobin 30 pg (27-31); Mean Corpuscular Volume 91 fL (80-94); Mean Platelet Volume 9.2 fL (7.4-10.4); Platelet Count 151 10^3/uL (150-450); Red Blood Count 3.83 10^6 /uL (4.18-5.48); Red Cell Distribution Width 18 % (10-15); White Blood Count 5.1 10^3/uL (3.5-10.8)
[2020-10-31 08:42] LABS: EGFR African American 55.5 (>60); EGFR Non-African American 45.8 (>60); Magnesium 1.9 mg/dL (1.9-2.7)
[2020-10-31] MEDS: Pantoprazole VIAL 40 MG VIAL IV SCH (09:14)
[2020-10-31] MEDS: Collagenase 250 units/gm OINT 1 tube TOPICAL SCH (09:15)
[2020-10-31] MEDS: Saline FLUSH-CENTRAL 10 ML SYRINGE CENT\\PICC SCH ×2 (09:23→21:32)
[2020-10-31 10:41] LABS: % Iron Saturation 10 % (15-55); Iron 34 ug/dL (50-212); Total Iron Binding Capacity 343 mcg/dL (250-450); Transferrin 245 mg/dL (203-362); Unsaturated Iron Binding < 328 ug/dL
[2020-10-31 11:06] LABS: Ferritin 49.2 ng/mL (24-336)
[2020-10-31] MEDS ORDERED: Iron Sucrose 200 MG in NS 0.9% 100 ml BAG 100 ML IVPB SCH (12:00)
[2020-10-31] MEDS ORDERED: NS 0.9% 1000 ml BAG 1,000 ML IV ONE (23:01)
[2020-10-31] MEDS ORDERED: Vancomycin 1,000 MG in NS 0.9% 250 ml 250 ML IVPB ONE (23:40)
[2020-10-31] MEDS ORDERED: NS 0.9% IV SCH ×2 (23:45→23:53)
[2020-10-31] MEDS ORDERED: Vancomycin per Pharmacy 1 EA NOTE FOLLOW UP SCH (23:45)
[2020-10-31] MEDS ORDERED: Vancomycin 1,750 MG in NS 0.9% 500 ml BAG 500 ML IVPB ONE (23:50)
[2020-11-01 00:16] LABS: ABS Lymphocytes 0.7 10^3/ul (1.0-4.8); ABS Monocytes 0.5 10^3/ul (0-0.8); ABS Neutrophils 1.6 10^3/ul (1.5-7.7); Eosinophil % 0.3 %; Hematocrit 36 % (42-52); Hemoglobin 11.6 g/dL (14.0-18.0); Mean Corpuscular HGB Conc 33 g/dL (31-36); Mean Corpuscular Hemoglobin 30 pg (27-31); Mean Corpuscular Volume 92 fL (80-94); Nucleated Red Blood Cells % 0.2; Platelet Count 147 10^3/uL (150-450); Red Blood Count 3.89 10^6 /uL (4.18-5.48); Red Cell Distribution Width 18 % (10-15); White Blood Count 2.8 10^3/uL (3.5-10.8)
[2020-11-01 00:33] LABS: Albumin 3.5 g/dL (3.2-5.2); Albumin/Globulin Ratio 1.3 (1-3); Calcium 8.6 mg/dL (8.6-10.3); EGFR African American 47.8 (>60); EGFR Non-African American 39.5 (>60); Globulin 2.7 g/dL (2-4); Potassium 5.2 mmol/L (3.5-5.0); Total Bilirubin 0.5 mg/dL (0.2-1.0); Total Protein 6.2 g/dL (6.4-8.9)
[2020-11-01] MEDS: Cefepime 2 GM in Dextrose 2 GM/50 ML BAG IV SCH ×2 (00:42→13:58)
[2020-11-01 01:19] LABS: ABS Basophils 0.1 10^3/ul (0-0.2); ABS Lymphocytes 0.8 10^3/ul (1.0-4.8); ABS Monocytes 0.4 10^3/ul (0-0.8); ABS Neutrophils 1.3 10^3/ul (1.5-7.7); Eosinophil % 0.6 %; Hematocrit 35 % (42-52); Hemoglobin 11.4 g/dL (14.0-18.0); Lymphocyte % 30.8 %; Mean Corpuscular HGB Conc 33 g/dL (31-36); Mean Corpuscular Hemoglobin 30 pg (27-31); Mean Corpuscular Volume 92 fL (80-94); Mean Platelet Volume 9.1 fL (7.4-10.4); Nucleated Red Blood Cells % 0.1; Platelet Count 130 10^3/uL (150-450); Red Blood Count 3.83 10^6 /uL (4.18-5.48); Red Cell Distribution Width 18 % (10-15); White Blood Count 2.6 10^3/uL (3.5-10.8)
[2020-11-01 02:27] LABS: Urine Appearance Cloudy; Urine Bilirubin Negative (Negative); Urine Blood Negative (Negative); Urine Color Yellow; Urine Glucose Negative (Negative); Urine Ketones Negative (Negative); Urine Nitrite Negative (Negative); Urine Protein Negative (Negative); Urine Urobilinogen Negative (Negative)
[2020-11-01 02:36] LABS: Urine Bacteria Absent (Absent); Urine Red Blood Cell Absent (Absent); Urine Squamous Epithelial Cell Present (Absent); Urine White Blood Cell 2+(11-20/hpf) (Absent)
[2020-11-01 04:28] LABS: ABS Lymphocytes 0.6 10^3/ul (1.0-4.8); ABS Monocytes 0.5 10^3/ul (0-0.8); ABS Neutrophils 2.4 10^3/ul (1.5-7.7); Eosinophil % 0.7 %; Hematocrit 35 % (42-52); Hemoglobin 11.2 g/dL (14.0-18.0); Lymphocyte % 15.6 %; Mean Corpuscular HGB Conc 32 g/dL (31-36); Mean Corpuscular Hemoglobin 30 pg (27-31); Mean Corpuscular Volume 93 fL (80-94); Mean Platelet Volume 9.4 fL (7.4-10.4); Nucleated Red Blood Cells % 0.2; Platelet Count 136 10^3/uL (150-450); Red Blood Count 3.77 10^6 /uL (4.18-5.48); Red Cell Distribution Width 18 % (10-15); White Blood Count 3.5 10^3/uL (3.5-10.8)
[2020-11-01 04:46] LABS: Calcium 8.6 mg/dL (8.6-10.3); EGFR African American 49.8 (>60); EGFR Non-African American 41.1 (>60); Magnesium 1.9 mg/dL (1.9-2.7); Potassium 4.7 mmol/L (3.5-5.0)
[2020-11-01 05:39] LABS: C Reactive Protein 65.43 mg/L (<8.01)
[2020-11-01] MEDS ORDERED: Vancomycin Trough Check NOTE FOLLOW UP ONE (06:00)
[2020-11-01] MEDS: Pantoprazole VIAL 40 MG VIAL IV SCH (10:30)
[2020-11-01] MEDS: Saline FLUSH-CENTRAL 10 ML SYRINGE CENT\\PICC SCH ×2 (12:24→23:39)
[2020-11-01] MEDS: Collagenase 250 units/gm OINT 1 tube TOPICAL SCH (12:25)
[2020-11-01] MEDS: Lactated Ringers 1000 ml BAG 1,000 ML IV SCH (19:27)
[2020-11-02] MEDS: Ondansetron 4 mg VIAL 2 MG/ML 2 ml VIAL IV PRN (00:45)
[2020-11-02] MEDS ORDERED: Vancomycin 1,750 MG in NS 0.9% 500 ml BAG 500 ML IVPB SCH (04:00)
[2020-11-02 05:42] LABS: ABS Eosinophils 0.1 10^3/ul (0-0.6); ABS Lymphocytes 0.6 10^3/ul (1.0-4.8); ABS Monocytes 0.6 10^3/ul (0-0.8); ABS Neutrophils 2.1 10^3/ul (1.5-7.7); Eosinophil % 2.6 %; Hematocrit 35 % (42-52); Hemoglobin 11.4 g/dL (14.0-18.0); Lymphocyte % 18.6 %; Mean Corpuscular HGB Conc 32 g/dL (31-36); Mean Corpuscular Hemoglobin 30 pg (27-31); Mean Corpuscular Volume 93 fL (80-94); Mean Platelet Volume 9.4 fL (7.4-10.4); Nucleated Red Blood Cells % 0.1; Platelet Count 130 10^3/uL (150-450); Red Cell Distribution Width 18 % (10-15); White Blood Count 3.4 10^3/uL (3.5-10.8)
[2020-11-02 05:59] LABS: Albumin 3.4 g/dL (3.2-5.2); Albumin/Globulin Ratio 1.3 (1-3); Calcium 8.8 mg/dL (8.6-10.3); EGFR African American 56.3 (>60); EGFR Non-African American 46.5 (>60); Globulin 2.7 g/dL (2-4); Magnesium 1.9 mg/dL (1.9-2.7); Potassium 4.2 mmol/L (3.5-5.0); Total Bilirubin 0.5 mg/dL (0.2-1.0); Total Protein 6.1 g/dL (6.4-8.9)
[2020-11-02] MEDS: Pantoprazole VIAL 40 MG VIAL IV SCH (10:39)
[2020-11-02] MEDS: Saline FLUSH-CENTRAL 10 ML SYRINGE CENT\\PICC SCH ×2 (10:40→23:38)
[2020-11-02] MEDS: Collagenase 250 units/gm OINT 1 tube TOPICAL SCH (16:10)
[2020-11-02] MEDS: Lactated Ringers 1000 ml BAG 1,000 ML IV SCH (17:37)
[2020-11-03 05:29] LABS: ABS Eosinophils 0.2 10^3/ul (0-0.6); ABS Lymphocytes 0.9 10^3/ul (1.0-4.8); ABS Monocytes 0.7 10^3/ul (0-0.8); ABS Neutrophils 2.3 10^3/ul (1.5-7.7); Eosinophil % 4.1 %; Hematocrit 33 % (42-52); Lymphocyte % 22.3 %; Mean Corpuscular HGB Conc 33 g/dL (31-36); Mean Corpuscular Hemoglobin 30 pg (27-31); Mean Corpuscular Volume 90 fL (80-94); Mean Platelet Volume 10.2 fL (7.4-10.4); Nucleated Red Blood Cells % 0.1; Platelet Count 129 10^3/uL (150-450); Red Blood Count 3.68 10^6 /uL (4.18-5.48); Red Cell Distribution Width 18 % (10-15); White Blood Count 4.2 10^3/uL (3.5-10.8)
[2020-11-03] MEDS: Lactated Ringers 1000 ml BAG 1,000 ML IV SCH ×2 (05:33→20:21)
[2020-11-03 06:33] LABS: Calcium 8.9 mg/dL (8.6-10.3); Potassium 3.9 mmol/L (3.5-5.0)
[2020-11-03 06:38] LABS: EGFR African American 55.5 (>60); EGFR Non-African American 45.8 (>60)
[2020-11-03] MEDS: Pantoprazole VIAL 40 MG VIAL IV SCH (10:39)
[2020-11-03] MEDS: Collagenase 250 units/gm OINT 1 tube TOPICAL SCH (10:40)
[2020-11-03] MEDS: Saline FLUSH-CENTRAL 10 ML SYRINGE CENT\\PICC SCH ×2 (10:57→21:54)
[2020-11-03 17:39] LABS: Anaplasma phagocytophilum Negative (Negative); B. miyamotoi PCR, B Negative (Negative); Babesia divergens/MO-1 Negative (Negative); Babesia ducani Negative (Negative); Ehrlichia chaffeensis Negative (Negative); Ehrlichia ewingii/canis Negative (Negative); Ehrlichia muris eauclairensis Negative (Negative)
[2020-11-03] MEDS: Cefepime 2 GM in Dextrose 2 GM/50 ML BAG IV SCH (18:13)
[2020-11-03] MEDS: Nicotine PATCH 21 MG/24 HR PATCH TRANSDERM SCH (18:20)
[2020-11-04] MEDS ORDERED: Vancomycin Trough Check NOTE FOLLOW UP ONE (06:00)
[2020-11-04] MEDS: Cefepime 2 GM in Dextrose 2 GM/50 ML BAG IV SCH ×2 (06:10→17:59)
[2020-11-04 06:35] LABS: ABS Basophils 0.1 10^3/ul (0-0.2); ABS Eosinophils 0.2 10^3/ul (0-0.6); ABS Lymphocytes 1.2 10^3/ul (1.0-4.8); ABS Monocytes 0.6 10^3/ul (0-0.8); ABS Neutrophils 2.9 10^3/ul (1.5-7.7); Hematocrit 38 % (42-52); Hemoglobin 12.1 g/dL (14.0-18.0); Mean Corpuscular HGB Conc 32 g/dL (31-36); Mean Corpuscular Hemoglobin 30 pg (27-31); Mean Corpuscular Volume 92 fL (80-94); Mean Platelet Volume 9.8 fL (7.4-10.4); Nucleated Red Blood Cells % 0.1; Platelet Count 154 10^3/uL (150-450); Red Blood Count 4.09 10^6 /uL (4.18-5.48); Red Cell Distribution Width 18 % (10-15); White Blood Count 4.9 10^3/uL (3.5-10.8)
[2020-11-04 07:12] LABS: Albumin 3.7 g/dL (3.2-5.2); Albumin/Globulin Ratio 1.2 (1-3); Calcium 9.3 mg/dL (8.6-10.3); EGFR African American 63.1 (>60); EGFR Non-African American 52.1 (>60); Potassium 3.9 mmol/L (3.5-5.0); Total Bilirubin 0.4 mg/dL (0.2-1.0); Total Protein 6.7 g/dL (6.4-8.9)
[2020-11-04] MEDS: Nicotine PATCH 21 MG/24 HR PATCH TRANSDERM SCH (07:45)
[2020-11-04] MEDS: Pantoprazole VIAL 40 MG VIAL IV SCH (07:46)
[2020-11-04] MEDS: Lactated Ringers 1000 ml BAG 1,000 ML IV SCH ×2 (07:55→18:00)
[2020-11-04] MEDS: Saline FLUSH-CENTRAL 10 ML SYRINGE CENT\\PICC SCH ×2 (08:17→20:08)
[2020-11-04] MEDS: Collagenase 250 units/gm OINT 1 tube TOPICAL SCH (15:48)
[2020-11-05] MEDS: Lactated Ringers 1000 ml BAG 1,000 ML IV SCH ×2 (04:53→15:43)
[2020-11-05] MEDS: Cefepime 2 GM in Dextrose 2 GM/50 ML BAG IV SCH ×2 (05:00→17:45)
[2020-11-05 06:04] LABS: ABS Eosinophils 0.2 10^3/ul (0-0.6); ABS Lymphocytes 1.5 10^3/ul (1.0-4.8); ABS Monocytes 0.6 10^3/ul (0-0.8); ABS Neutrophils 2.4 10^3/ul (1.5-7.7); Eosinophil % 3.9 %; Hematocrit 36 % (42-52); Hemoglobin 11.7 g/dL (14.0-18.0); Lymphocyte % 32.3 %; Mean Corpuscular HGB Conc 33 g/dL (31-36); Mean Corpuscular Hemoglobin 30 pg (27-31); Mean Corpuscular Volume 90 fL (80-94); Mean Platelet Volume 9.8 fL (7.4-10.4); Nucleated Red Blood Cells % 0.1; Platelet Count 144 10^3/uL (150-450); Red Blood Count 3.94 10^6 /uL (4.18-5.48); Red Cell Distribution Width 18 % (10-15); White Blood Count 4.7 10^3/uL (3.5-10.8)
[2020-11-05 06:19] LABS: Albumin 3.5 g/dL (3.2-5.2); Albumin/Globulin Ratio 1.3 (1-3); EGFR African American 61.5 (>60); EGFR Non-African American 50.8 (>60); Globulin 2.8 g/dL (2-4); Potassium 3.7 mmol/L (3.5-5.0); Total Bilirubin 0.4 mg/dL (0.2-1.0); Total Protein 6.3 g/dL (6.4-8.9)
[2020-11-05] MEDS: Pantoprazole VIAL 40 MG VIAL IV SCH (08:02)
[2020-11-05] MEDS: Collagenase 250 units/gm OINT 1 tube TOPICAL SCH (08:04)
[2020-11-05] MEDS: Nicotine PATCH 21 MG/24 HR PATCH TRANSDERM SCH (08:05)
[2020-11-06] MEDS: Lactated Ringers 1000 ml BAG 1,000 ML IV SCH ×2 (02:48→16:43)
[2020-11-06] MEDS: Cefepime 2 GM in Dextrose 2 GM/50 ML BAG IV SCH ×2 (06:02→16:44)
[2020-11-06] MEDS: Collagenase 250 units/gm OINT 1 tube TOPICAL SCH (09:03)
[2020-11-06] MEDS: Nicotine PATCH 21 MG/24 HR PATCH TRANSDERM SCH (09:03)
[2020-11-06] MEDS: Pantoprazole VIAL 40 MG VIAL IV SCH (09:03)
[2020-11-07] MEDS: Lactated Ringers 1000 ml BAG 1,000 ML IV SCH (03:10)
[2020-11-07] MEDS: Cefepime 2 GM in Dextrose 2 GM/50 ML BAG IV SCH ×2 (06:00→17:37)
[2020-11-07] MEDS ORDERED: Polyethylene Glycol 3350 17 GM PACKET PO PRN (08:19)
[2020-11-07] MEDS ORDERED: Senna TAB 8.6 mg TAB PO PRN (08:19)
[2020-11-07] MEDS ORDERED: Magnesium Hydroxide LIQ 30 ML UDC PO PRN (08:19)
[2020-11-07] MEDS: Nicotine PATCH 21 MG/24 HR PATCH TRANSDERM SCH (10:25)
[2020-11-07] MEDS: Pantoprazole VIAL 40 MG VIAL IV SCH (10:26)
[2020-11-07] MEDS: Collagenase 250 units/gm OINT 1 tube TOPICAL SCH (10:30)
[2020-11-07 10:42] LABS: ABS Basophils 0.1 10^3/ul (0-0.2); ABS Eosinophils 0.2 10^3/ul (0-0.6); ABS Lymphocytes 1.4 10^3/ul (1.0-4.8); ABS Monocytes 0.4 10^3/ul (0-0.8); ABS Neutrophils 3.1 10^3/ul (1.5-7.7); Eosinophil % 3.9 %; Hematocrit 35 % (42-52); Hemoglobin 11.3 g/dL (14.0-18.0); Lymphocyte % 26.2 %; Mean Corpuscular HGB Conc 32 g/dL (31-36); Mean Corpuscular Hemoglobin 30 pg (27-31); Mean Corpuscular Volume 92 fL (80-94); Mean Platelet Volume 9.2 fL (7.4-10.4); Nucleated Red Blood Cells % 0.1; Platelet Count 166 10^3/uL (150-450); Red Cell Distribution Width 18 % (10-15); White Blood Count 5.2 10^3/uL (3.5-10.8)
[2020-11-07 11:04] LABS: Calcium 8.6 mg/dL (8.6-10.3); EGFR African American 73.6 (>60); EGFR Non-African American 60.8 (>60); Magnesium 1.6 mg/dL (1.9-2.7); Potassium 3.9 mmol/L (3.5-5.0)
[2020-11-07] MEDS ORDERED: Magnesium Sulfate 2 gm BAG 2 GM/50 ML BAG IVPB ONE (14:13)
[2020-11-07] MEDS ORDERED: Potassium Chlor 20 meq TAB.ER PO ONE (14:13)
[2020-11-08] MEDS: Cefepime 2 GM in Dextrose 2 GM/50 ML BAG IV SCH ×2 (05:22→17:13)
[2020-11-08] MEDS: Pantoprazole VIAL 40 MG VIAL IV SCH (08:02)
[2020-11-08] MEDS: Nicotine PATCH 21 MG/24 HR PATCH TRANSDERM SCH (08:04)
[2020-11-08] MEDS: Collagenase 250 units/gm OINT 1 tube TOPICAL SCH (14:11)
[2020-11-09] MEDS: Cefepime 2 GM in Dextrose 2 GM/50 ML BAG IV SCH ×2 (05:31→18:09)
[2020-11-09 06:00] LABS: ABS Basophils 0.1 10^3/ul (0-0.2); ABS Eosinophils 0.2 10^3/ul (0-0.6); ABS Lymphocytes 1.5 10^3/ul (1.0-4.8); ABS Monocytes 0.7 10^3/ul (0-0.8); ABS Neutrophils 3.8 10^3/ul (1.5-7.7); Eosinophil % 3.6 %; Hematocrit 35 % (42-52); Hemoglobin 11.3 g/dL (14.0-18.0); Lymphocyte % 23.5 %; Mean Corpuscular HGB Conc 32 g/dL (31-36); Mean Corpuscular Hemoglobin 30 pg (27-31); Mean Corpuscular Volume 92 fL (80-94); Mean Platelet Volume 9.5 fL (7.4-10.4); Platelet Count 180 10^3/uL (150-450); Red Blood Count 3.83 10^6 /uL (4.18-5.48); Red Cell Distribution Width 18 % (10-15); White Blood Count 6.3 10^3/uL (3.5-10.8)
[2020-11-09 06:23] LABS: Calcium 8.9 mg/dL (8.6-10.3); EGFR African American 64.7 (>60); EGFR Non-African American 53.5 (>60); Magnesium 1.9 mg/dL (1.9-2.7); Potassium 3.9 mmol/L (3.5-5.0)
[2020-11-09] MEDS: Nicotine PATCH 21 MG/24 HR PATCH TRANSDERM SCH (09:06)
[2020-11-09] MEDS: Collagenase 250 units/gm OINT 1 tube TOPICAL SCH (09:08)
[2020-11-09 11:52] LABS: C Reactive Protein 28.38 mg/L (<8.01)
[2020-11-09] MEDS: Nicotine GUM 2MG FRUIT FLAVOR PO PRN ×2 (20:53→23:29)
[2020-11-10] MEDS: Cefepime 2 GM in Dextrose 2 GM/50 ML BAG IV SCH (05:21)
[2020-11-10 06:18] LABS: ABS Basophils 0.1 10^3/ul (0-0.2); ABS Eosinophils 0.2 10^3/ul (0-0.6); ABS Lymphocytes 1.5 10^3/ul (1.0-4.8); ABS Monocytes 0.7 10^3/ul (0-0.8); ABS Neutrophils 3.8 10^3/ul (1.5-7.7); Eosinophil % 2.5 %; Hematocrit 36 % (42-52); Hemoglobin 11.8 g/dL (14.0-18.0); Lymphocyte % 24.4 %; Mean Corpuscular HGB Conc 33 g/dL (31-36); Mean Corpuscular Hemoglobin 30 pg (27-31); Mean Corpuscular Volume 91 fL (80-94); Mean Platelet Volume 9.3 fL (7.4-10.4); Nucleated Red Blood Cells % 0.1; Platelet Count 183 10^3/uL (150-450); Red Blood Count 3.95 10^6 /uL (4.18-5.48); Red Cell Distribution Width 18 % (10-15); White Blood Count 6.2 10^3/uL (3.5-10.8)
[2020-11-10 06:35] LABS: EGFR Non-African American 55.4 (>60); Magnesium 1.9 mg/dL (1.9-2.7)
[2020-11-10] MEDS: Nicotine PATCH 21 MG/24 HR PATCH TRANSDERM SCH (07:59)
[2020-11-10] MEDS: Collagenase 250 units/gm OINT 1 tube TOPICAL SCH (08:00)
[2020-11-10 12:37] VITALS: BP 106/64
== END 2020-11-10 12:40 | DRG 207 ==
LOC: MEDTELE 05:10 → ED 05:10 → OBSVTOIN 08:41 → ICU 12:33 → MEDTELE 10-05 10:57 → ICU 10-12 20:12 → MEDTELE 10-30 16:38 → MED 11-01 11:09
PROVIDERS: ADMIT Hospitalist; ATTEND Internal Medicine

== ENCOUNTER 2020-11-14 23:45 | Inpatient (IN) ==
[2020-11-15] MEDS ORDERED: Lorazepam PYXIS KEY PRN (01:46)
[2020-11-15] MEDS ORDERED: Ziprasidone IM 20 mg VIAL 1 ml VIAL IM ONE ×2 (01:46→13:16)
[2020-11-15] MEDS: LORazepam 2 mg VIAL 1 ml IM ONE (02:05)
[2020-11-15 02:55] LABS: ABS Basophils 0.1 10^3/ul (0-0.2); ABS Eosinophils 0.1 10^3/ul (0-0.6); ABS Lymphocytes 1.8 10^3/ul (1.0-4.8); ABS Monocytes 0.6 10^3/ul (0-0.8); ABS Neutrophils 3.3 10^3/ul (1.5-7.7); Hematocrit 35 % (42-52); Hemoglobin 11.5 g/dL (14.0-18.0); Lymphocyte % 30.6 %; Mean Corpuscular HGB Conc 33 g/dL (31-36); Mean Corpuscular Hemoglobin 30 pg (27-31); Mean Corpuscular Volume 90 fL (80-94); Mean Platelet Volume 9.1 fL (7.4-10.4); Platelet Count 167 10^3/uL (150-450); Red Cell Distribution Width 17 % (10-15)
[2020-11-15 03:09] LABS: Urine Appearance Clear; Urine Bilirubin Negative (Negative); Urine Blood Negative (Negative); Urine Color Yellow; Urine Glucose Negative (Negative); Urine Ketones Negative (Negative); Urine Nitrite Negative (Negative); Urine Protein 1+(30 mg/dL) (Negative); Urine Specific Gravity 1.021 (1.002-1.030); Urine Urobilinogen Negative (Negative)
[2020-11-15 03:12] LABS: Acetaminophen < 15 mcg/mL; Alcohol, S < 10 mg/dL (<10); Salicylate < 2.50 mg/dL (<30)
[2020-11-15 03:13] LABS: ALT 27 U/L (7-52); AST 17 U/L (13-39); Albumin 3.8 g/dL (3.2-5.2); Albumin/Globulin Ratio 1.6 (1-3); Alkaline Phosphatase 68 U/L (35-149); Anion Gap 6 mmol/L (2-11); Blood Urea Nitrogen 28 mg/dL (6-24); CO2 Carbon Dioxide 26 mmol/L (22-32); Calcium 8.9 mg/dL (8.6-10.3); Chloride 109 mmol/L (101-111); Creatine Kinase 31 U/L (10-223); EGFR African American 63.6 (>60); EGFR Non-African American 52.6 (>60); Globulin 2.4 g/dL (2-4); Glucose 96 mg/dL (70-100); Magnesium 1.9 mg/dL (1.9-2.7); Potassium 3.9 mmol/L (3.5-5.0); Sodium 141 mmol/L (135-145); Total Protein 6.2 g/dL (6.4-8.9)
[2020-11-15 03:19] LABS: Urine Bacteria Absent (Absent); Urine Benzodiazepine Screen None Detected (None Detect); Urine Cannabinoids Screen None Detected (None Detect); Urine Opiates Screen None Detected (None Detect); Urine Red Blood Cell Trace(0-2/hpf) (Absent); Urine Squamous Epithelial Cell Present (Absent); Urine White Blood Cell Trace(0-5/hpf) (Absent)
[2020-11-15 03:25] LABS: TSH Ultra Thyroid Stim Horm 1.52 mcIU/mL (0.34-5.60)
[2020-11-15] MEDS ORDERED: Al Hydrox/Mg Hydrox/Simet LIQ 30 ML UDC PO PRN (12:23)
[2020-11-15] MEDS ORDERED: Albuterol/Ipratropium NEB.SOL (2.5/0.5 MG) 3 ML NEB.SOLN INH PRN (12:27)
[2020-11-15] MEDS ORDERED: Magnesium Hydroxide LIQ 30 ML UDC PO PRN (12:27)
[2020-11-15] MEDS: Collagenase 250 units/gm OINT 1 tube TOPICAL SCH (18:08)
[2020-11-15] MEDS: Nicotine PATCH 21 MG/24 HR PATCH TRANSDERM SCH (18:27)
[2020-11-15] MEDS: Senna TAB 8.6 mg TAB PO SCH (20:45)
[2020-11-16] MEDS: Nicotine PATCH 21 MG/24 HR PATCH TRANSDERM SCH (07:43)
[2020-11-16] MEDS: Collagenase 250 units/gm OINT 1 tube TOPICAL SCH (14:58)
[2020-11-16] MEDS: Senna TAB 8.6 mg TAB PO SCH (20:01)
[2020-11-17] MEDS: Nicotine GUM 2MG FRUIT FLAVOR PO PRN ×2 (04:06→15:24)
[2020-11-17] MEDS: Nicotine PATCH 21 MG/24 HR PATCH TRANSDERM SCH (08:09)
[2020-11-17] MEDS: Collagenase 250 units/gm OINT 1 tube TOPICAL SCH (08:22)
[2020-11-17] MEDS: Senna TAB 8.6 mg TAB PO SCH (19:48)
[2020-11-18] MEDS: Nicotine PATCH 21 MG/24 HR PATCH TRANSDERM SCH (09:48)
[2020-11-18] MEDS: Collagenase 250 units/gm OINT 1 tube TOPICAL SCH (09:49)
[2020-11-18] MEDS: Senna TAB 8.6 mg TAB PO SCH (21:06)
[2020-11-18] MEDS: Nicotine GUM 2MG FRUIT FLAVOR PO PRN (21:07)
[2020-11-19] MEDS: Nicotine PATCH 21 MG/24 HR PATCH TRANSDERM SCH (07:47)
[2020-11-19] MEDS: Collagenase 250 units/gm OINT 1 tube TOPICAL SCH (07:48)
[2020-11-19] MEDS: Senna TAB 8.6 mg TAB PO SCH (21:54)
[2020-11-19] MEDS ORDERED: cefTRIAXone 1 gm/50 mL NS BAG 1 GM/50 ML BAG IVPB ONE (23:56)
[2020-11-20] MEDS ORDERED: Lorazepam PYXIS KEY PRN (01:12)
[2020-11-20] MEDS ORDERED: LORazepam 2 mg VIAL 1 ml IV PUSH ONE (01:12)
[2020-11-20] MEDS ORDERED: LORazepam 2 mg VIAL 1 ml ONE (01:14)
[2020-11-20] MEDS: LORazepam 2 mg VIAL 1 ml IM ONE (01:26)
[2020-11-20] MEDS: Nicotine PATCH 21 MG/24 HR PATCH TRANSDERM SCH (08:02)
[2020-11-20] MEDS: Collagenase 250 units/gm OINT 1 tube TOPICAL SCH (11:23)
[2020-11-20] MEDS: Senna TAB 8.6 mg TAB PO SCH (19:44)
[2020-11-20 20:27] LABS: Urine Appearance Clear; Urine Bilirubin Negative (Negative); Urine Blood Negative (Negative); Urine Color Yellow; Urine Glucose Negative (Negative); Urine Ketones Negative (Negative); Urine Nitrite Negative (Negative); Urine Protein Negative (Negative); Urine Specific Gravity 1.018 (1.002-1.030); Urine Urobilinogen Negative (Negative)
[2020-11-20 20:29] LABS: Urine Bacteria Absent (Absent); Urine Red Blood Cell Trace(0-2/hpf) (Absent); Urine Squamous Epithelial Cell Present (Absent); Urine White Blood Cell Trace(0-5/hpf) (Absent)
[2020-11-21] MEDS ORDERED: Acetaminophen IV 1 GM/100ML 100 ML IV ONE (03:30)
[2020-11-21] MEDS: Nicotine PATCH 21 MG/24 HR PATCH TRANSDERM SCH (07:14)
[2020-11-21] MEDS: Collagenase 250 units/gm OINT 1 tube TOPICAL SCH (12:32)
[2020-11-21] MEDS: Senna TAB 8.6 mg TAB PO SCH (19:56)
[2020-11-22] MEDS: Nicotine PATCH 21 MG/24 HR PATCH TRANSDERM SCH (10:45)
[2020-11-22] MEDS: Collagenase 250 units/gm OINT 1 tube TOPICAL SCH (10:45)
[2020-11-22] MEDS ORDERED: LORazepam 2 mg VIAL 1 ml IV PUSH ONE (16:03)
[2020-11-22] MEDS ORDERED: Lorazepam PYXIS KEY PRN ×2 (16:03→16:20)
[2020-11-22] MEDS ORDERED: LORazepam 2 mg VIAL 1 ml IV PUSH PRN (16:20)
[2020-11-22] MEDS: Senna TAB 8.6 mg TAB PO SCH (22:43)
[2020-11-22] MEDS ORDERED: Haloperidol 5 mg/ml SDV IV/IM 5 MG/ML AMP IM ONE (23:58)
[2020-11-23] MEDS ORDERED: Ziprasidone IM 20 mg VIAL 1 ml VIAL IM ONE (04:21)
[2020-11-23] MEDS ORDERED: LORazepam 2 mg VIAL 1 ml IM ONE (04:34)
[2020-11-23] MEDS ORDERED: Lorazepam PYXIS KEY PRN (04:34)
[2020-11-23] MEDS: Nicotine PATCH 21 MG/24 HR PATCH TRANSDERM SCH (07:30)
[2020-11-23] MEDS: Collagenase 250 units/gm OINT 1 tube TOPICAL SCH (13:54)
[2020-11-23] MEDS: Senna TAB 8.6 mg TAB PO SCH (19:37)
[2020-11-24] MEDS: Nicotine PATCH 21 MG/24 HR PATCH TRANSDERM SCH (08:51)
[2020-11-24] MEDS: Collagenase 250 units/gm OINT 1 tube TOPICAL SCH (08:51)
[2020-11-24] MEDS: Senna TAB 8.6 mg TAB PO SCH (21:41)
[2020-11-25] MEDS ORDERED: LORazepam 2 mg VIAL 1 ml IV PUSH ONE (01:35)
[2020-11-25] MEDS: Nicotine PATCH 21 MG/24 HR PATCH TRANSDERM SCH (08:50)
[2020-11-25] MEDS: Collagenase 250 units/gm OINT 1 tube TOPICAL SCH (13:46)
[2020-11-25] MEDS: Senna TAB 8.6 mg TAB PO SCH (19:45)
[2020-11-26] MEDS: Nicotine PATCH 21 MG/24 HR PATCH TRANSDERM SCH (07:05)
[2020-11-26] MEDS: Collagenase 250 units/gm OINT 1 tube TOPICAL SCH (07:07)
[2020-11-26] MEDS ORDERED: Lorazepam PYXIS KEY PRN (12:39)
[2020-11-26] MEDS ORDERED: LORazepam 2 mg VIAL 1 ml IV PUSH ONE (12:40)
[2020-11-26] MEDS ORDERED: LORazepam 2 mg VIAL 1 ml IM ONE (12:40)
[2020-11-26] MEDS: Senna TAB 8.6 mg TAB PO SCH (20:06)
[2020-11-27] MEDS: Nicotine PATCH 21 MG/24 HR PATCH TRANSDERM SCH ×2 (11:01→11:03)
[2020-11-27] MEDS: Collagenase 250 units/gm OINT 1 tube TOPICAL SCH (11:07)
[2020-11-27] MEDS ORDERED: Lorazepam PYXIS KEY PRN (14:33)
[2020-11-27] MEDS ORDERED: LORazepam 2 mg VIAL 1 ml IM ONE (14:33)
[2020-11-27] MEDS ORDERED: Haloperidol 5 mg/ml SDV IV/IM 5 MG/ML AMP IM ONE (16:55)
[2020-11-27] MEDS: Senna TAB 8.6 mg TAB PO SCH (20:23)
[2020-11-28] MEDS: Collagenase 250 units/gm OINT 1 tube TOPICAL SCH (14:21)
[2020-11-28] MEDS: Nicotine PATCH 21 MG/24 HR PATCH TRANSDERM SCH (16:34)
[2020-11-28] MEDS: Senna TAB 8.6 mg TAB PO SCH (19:52)
[2020-11-29] MEDS: Nicotine PATCH 21 MG/24 HR PATCH TRANSDERM SCH (14:50)
[2020-11-29] MEDS: Collagenase 250 units/gm OINT 1 tube TOPICAL SCH (17:29)
[2020-11-29] MEDS: Senna TAB 8.6 mg TAB PO SCH (20:26)
[2020-11-30] MEDS: Nicotine PATCH 21 MG/24 HR PATCH TRANSDERM SCH (08:52)
[2020-11-30] MEDS: Collagenase 250 units/gm OINT 1 tube TOPICAL SCH (08:52)
[2020-11-30] MEDS: Senna TAB 8.6 mg TAB PO SCH (19:32)
[2020-11-30] MEDS ORDERED: LORazepam 2 mg VIAL 1 ml IV PUSH ONE (22:39)
[2020-12-01] MEDS: Nicotine PATCH 21 MG/24 HR PATCH TRANSDERM SCH (08:08)
[2020-12-01] MEDS: Collagenase 250 units/gm OINT 1 tube TOPICAL SCH (08:12)
[2020-12-01] MEDS ORDERED: Haloperidol 5 mg/ml SDV IV/IM 5 MG/ML AMP IM ONE (18:15)
[2020-12-01] MEDS ORDERED: LORazepam 2 mg VIAL 1 ml ONE (18:55)
[2020-12-01] MEDS ORDERED: diPHENhydraMINE IV 50 MG/ML 1 ml VIAL (BENADRYL) ONE (18:55)
[2020-12-01] MEDS: Senna TAB 8.6 mg TAB PO SCH (20:29)
[2020-12-02] MEDS ORDERED: LORazepam 2 mg VIAL 1 ml IM ONE (08:00)
[2020-12-02] MEDS ORDERED: diPHENhydraMINE IV 50 MG/ML 1 ml VIAL (BENADRYL) IM ONE (08:00)
[2020-12-02] MEDS: Nicotine PATCH 21 MG/24 HR PATCH TRANSDERM SCH (09:21)
[2020-12-02] MEDS: Collagenase 250 units/gm OINT 1 tube TOPICAL SCH (10:41)
[2020-12-02] MEDS: Senna TAB 8.6 mg TAB PO SCH (22:02)
[2020-12-03] MEDS: Nicotine PATCH 21 MG/24 HR PATCH TRANSDERM SCH (08:07)
[2020-12-03] MEDS: Collagenase 250 units/gm OINT 1 tube TOPICAL SCH (08:12)
[2020-12-03] MEDS: Senna TAB 8.6 mg TAB PO SCH (20:59)
[2020-12-04 06:02] LABS: ABS Eosinophils 0.2 10^3/ul (0-0.6); ABS Lymphocytes 1.7 10^3/ul (1.0-4.8); ABS Monocytes 0.6 10^3/ul (0-0.8); ABS Neutrophils 2.6 10^3/ul (1.5-7.7); Eosinophil % 3.5 %; Hematocrit 36 % (42-52); Hemoglobin 11.8 g/dL (14.0-18.0); Lymphocyte % 33.4 %; Mean Corpuscular HGB Conc 33 g/dL (31-36); Mean Corpuscular Hemoglobin 29 pg (27-31); Mean Corpuscular Volume 88 fL (80-94); Mean Platelet Volume 8.4 fL (7.4-10.4); Platelet Count 174 10^3/uL (150-450); Red Cell Distribution Width 17 % (10-15); White Blood Count 5.1 10^3/uL (3.5-10.8)
[2020-12-04 06:19] LABS: Calcium 8.3 mg/dL (8.6-10.3); EGFR African American 52.7 (>60); EGFR Non-African American 43.5 (>60); Magnesium 1.9 mg/dL (1.9-2.7); Potassium 4.2 mmol/L (3.5-5.0)
[2020-12-04] MEDS ORDERED: Haloperidol 5 mg/ml SDV IV/IM 5 MG/ML AMP IV SLOW PU PRN (08:47)
[2020-12-04] MEDS: Nicotine PATCH 21 MG/24 HR PATCH TRANSDERM SCH (09:43)
[2020-12-04] MEDS: Collagenase 250 units/gm OINT 1 tube TOPICAL SCH (09:45)
[2020-12-04] MEDS: Senna TAB 8.6 mg TAB PO SCH (20:42)
[2020-12-05] MEDS: Nicotine PATCH 21 MG/24 HR PATCH TRANSDERM SCH (08:39)
[2020-12-05] MEDS: Senna TAB 8.6 mg TAB PO SCH (19:52)
[2020-12-06] MEDS: Nicotine PATCH 21 MG/24 HR PATCH TRANSDERM SCH (08:07)
[2020-12-06] MEDS: Senna TAB 8.6 mg TAB PO SCH (21:47)
[2020-12-07] MEDS: Nicotine PATCH 21 MG/24 HR PATCH TRANSDERM SCH (08:52)
[2020-12-07] MEDS: Senna TAB 8.6 mg TAB PO SCH (20:00)
[2020-12-08] MEDS: Nicotine PATCH 21 MG/24 HR PATCH TRANSDERM SCH ×2 (06:03→08:08)
[2020-12-08 09:54] LABS: Calcium 8.8 mg/dL (8.6-10.3); EGFR African American 51.2 (>60); EGFR Non-African American 42.3 (>60); Potassium 4.3 mmol/L (3.5-5.0)
[2020-12-08] MEDS: Senna TAB 8.6 mg TAB PO SCH (21:29)
[2020-12-09] MEDS: Nicotine PATCH 21 MG/24 HR PATCH TRANSDERM SCH (09:40)
[2020-12-09 10:18] LABS: Calcium 8.6 mg/dL (8.6-10.3); EGFR African American 48.7 (>60); EGFR Non-African American 40.3 (>60); Potassium 4.4 mmol/L (3.5-5.0)
[2020-12-09] MEDS ORDERED: NS 0.9% 1000 ml BAG 1,000 ML IV SCH (14:00)
[2020-12-09] MEDS: Senna TAB 8.6 mg TAB PO SCH (21:23)
[2020-12-10] MEDS: Nicotine PATCH 21 MG/24 HR PATCH TRANSDERM SCH (09:07)
[2020-12-10] MEDS: Senna TAB 8.6 mg TAB PO SCH (21:21)
[2020-12-11 07:01] LABS: Calcium 8.2 mg/dL (8.6-10.3); EGFR Non-African American 45.5 (>60)
[2020-12-11] MEDS: Nicotine PATCH 21 MG/24 HR PATCH TRANSDERM SCH (08:58)
[2020-12-11] MEDS: Senna TAB 8.6 mg TAB PO SCH (20:42)
[2020-12-12] MEDS: Nicotine PATCH 21 MG/24 HR PATCH TRANSDERM SCH (08:58)
[2020-12-12] MEDS: Senna TAB 8.6 mg TAB PO SCH (20:53)
[2020-12-13] MEDS: Nicotine PATCH 21 MG/24 HR PATCH TRANSDERM SCH (09:33)
[2020-12-13] MEDS: Senna TAB 8.6 mg TAB PO SCH (21:41)
[2020-12-14] MEDS: Nicotine PATCH 21 MG/24 HR PATCH TRANSDERM SCH (07:58)
[2020-12-14] MEDS: Senna TAB 8.6 mg TAB PO SCH (20:40)
[2020-12-15] MEDS: Nicotine PATCH 21 MG/24 HR PATCH TRANSDERM SCH (10:10)
[2020-12-15] MEDS ORDERED: Nicotine PATCH 14 MG/24 HR PATCH TRANSDERM SCH (18:00)
[2020-12-15] MEDS: Senna TAB 8.6 mg TAB PO SCH (20:00)
[2020-12-16] MEDS: Nicotine PATCH 14 MG/24 HR PATCH TRANSDERM SCH (09:44)
[2020-12-16] MEDS: Calcium Carb (TUMS) 500 mg CHEW TAB PO PRN (18:21)
[2020-12-16] MEDS: Senna TAB 8.6 mg TAB PO SCH (21:08)
[2020-12-17] MEDS: Nicotine PATCH 14 MG/24 HR PATCH TRANSDERM SCH (09:08)
[2020-12-17] MEDS: Senna TAB 8.6 mg TAB PO SCH (23:07)
[2020-12-18] MEDS: Nicotine PATCH 14 MG/24 HR PATCH TRANSDERM SCH (09:12)
[2020-12-18 15:51] LABS: ABS Eosinophils 0.1 10^3/ul (0-0.6); ABS Lymphocytes 1.2 10^3/ul (1.0-4.8); ABS Monocytes 0.7 10^3/ul (0-0.8); Eosinophil % 1.4 %; Hematocrit 37 % (42-52); Hemoglobin 11.6 g/dL (14.0-18.0); Lymphocyte % 19.5 %; Mean Corpuscular HGB Conc 31 g/dL (31-36); Mean Corpuscular Hemoglobin 27 pg (27-31); Mean Corpuscular Volume 87 fL (80-94); Mean Platelet Volume 8.3 fL (7.4-10.4); Platelet Count 176 10^3/uL (150-450); Red Blood Count 4.29 10^6 /uL (4.18-5.48); Red Cell Distribution Width 16 % (10-15); White Blood Count 5.9 10^3/uL (3.5-10.8)
[2020-12-18 16:06] LABS: Calcium 8.3 mg/dL (8.6-10.3); EGFR African American 47.1 (>60); Potassium 4.8 mmol/L (3.5-5.0)
[2020-12-18] MEDS: Senna TAB 8.6 mg TAB PO SCH (19:17)
[2020-12-19] MEDS: Nicotine PATCH 14 MG/24 HR PATCH TRANSDERM SCH (10:29)
[2020-12-19] MEDS: Senna TAB 8.6 mg TAB PO SCH (21:44)
[2020-12-20] MEDS ORDERED: Al Hydrox/Mg Hydrox/Simet LIQ 30 ML UDC PO ONE (00:06)
[2020-12-20] MEDS: Nicotine PATCH 14 MG/24 HR PATCH TRANSDERM SCH (08:17)
[2020-12-20] MEDS: Senna TAB 8.6 mg TAB PO SCH (21:52)
[2020-12-21] MEDS: Nicotine PATCH 14 MG/24 HR PATCH TRANSDERM SCH (10:26)
[2020-12-21] MEDS: Senna TAB 8.6 mg TAB PO SCH (20:59)
[2020-12-22] MEDS: Nicotine PATCH 14 MG/24 HR PATCH TRANSDERM SCH (10:38)
[2020-12-22] MEDS: Senna TAB 8.6 mg TAB PO SCH (19:43)
[2020-12-23] MEDS: Nicotine PATCH 14 MG/24 HR PATCH TRANSDERM SCH (08:33)
[2020-12-23] MEDS: Senna TAB 8.6 mg TAB PO SCH (21:52)
[2020-12-24] MEDS: Nicotine PATCH 14 MG/24 HR PATCH TRANSDERM SCH (08:03)
[2020-12-24] MEDS ORDERED: Lactated Ringers 500 ml BAG 500 ML IV ONE (16:25)
[2020-12-24 17:04] LABS: Hematocrit 37 % (42-52); Hemoglobin 11.5 g/dL (14.0-18.0); Mean Corpuscular HGB Conc 32 g/dL (31-36); Mean Corpuscular Hemoglobin 27 pg (27-31); Mean Corpuscular Volume 85 fL (80-94); Mean Platelet Volume 8.8 fL (7.4-10.4); Platelet Count 149 10^3/uL (150-450); Red Blood Count 4.31 10^6 /uL (4.18-5.48); Red Cell Distribution Width 16 % (10-15); White Blood Count 18.2 10^3/uL (3.5-10.8)
[2020-12-24] MEDS: Cefepime 2 GM in Dextrose 2 GM/50 ML BAG IV SCH (17:05)
[2020-12-24 17:21] LABS: Albumin 3.9 g/dL (3.2-5.2); Albumin/Globulin Ratio 1.6 (1-3); Calcium 8.5 mg/dL (8.6-10.3); EGFR African American 47.1 (>60); Globulin 2.5 g/dL (2-4); Potassium 4.5 mmol/L (3.5-5.0); Total Bilirubin 0.8 mg/dL (0.2-1.0); Total Protein 6.4 g/dL (6.4-8.9)
[2020-12-24 17:29] LABS: ABS Basophils 0.1 10^3/ul (0-0.2); ABS Lymphocytes 0.8 10^3/ul (1.0-4.8); ABS Monocytes 1.7 10^3/ul (0-0.8); ABS Neutrophils 15.6 10^3/ul (1.5-7.7); Lymphocyte % 4.3 %
[2020-12-24] MEDS: metroNIDAZOLE IV 500 MG/100ML 500 MG/100 ML BAG IVPB SCH (18:12)
[2020-12-24 18:15] LABS: Ferritin 19.9 ng/mL (24-336)
[2020-12-24 19:04] LABS: Urine Appearance Cloudy; Urine Bilirubin Negative (Negative); Urine Blood Negative (Negative); Urine Color Yellow; Urine Glucose Negative (Negative); Urine Ketones Negative (Negative); Urine Nitrite Positive (Negative); Urine Protein Negative (Negative); Urine Specific Gravity 1.021 (1.002-1.030); Urine Urobilinogen Negative (Negative)
[2020-12-24 19:06] LABS: Urine Bacteria 3+ (Absent); Urine Red Blood Cell Trace(0-2/hpf) (Absent); Urine Squamous Epithelial Cell Present (Absent); Urine White Blood Cell 3+(>20/hpf) (Absent)
[2020-12-24] MEDS: Senna TAB 8.6 mg TAB PO SCH (19:59)
[2020-12-24 21:19] LABS: C Reactive Protein 69.57 mg/L (<8.01)
[2020-12-25] MEDS: metroNIDAZOLE IV 500 MG/100ML 500 MG/100 ML BAG IVPB SCH ×2 (02:25→10:38)
[2020-12-25] MEDS: Cefepime 2 GM in Dextrose 2 GM/50 ML BAG IV SCH (04:00)
[2020-12-25] MEDS: Calcium Carb (TUMS) 500 mg CHEW TAB PO PRN (10:38)
[2020-12-25] MEDS: Nicotine PATCH 14 MG/24 HR PATCH TRANSDERM SCH (11:46)
[2020-12-25] MEDS: Senna TAB 8.6 mg TAB PO SCH (21:12)
[2020-12-25 21:45] LABS: ABS Basophils 0.1 10^3/ul (0-0.2); ABS Eosinophils 0.1 10^3/ul (0-0.6); ABS Neutrophils 10.5 10^3/ul (1.5-7.7); Eosinophil % 0.7 %; Hematocrit 36 % (42-52); Hemoglobin 11.1 g/dL (14.0-18.0); Lymphocyte % 7.6 %; Mean Corpuscular HGB Conc 31 g/dL (31-36); Mean Corpuscular Hemoglobin 26 pg (27-31); Mean Corpuscular Volume 85 fL (80-94); Mean Platelet Volume 8.7 fL (7.4-10.4); Platelet Count 130 10^3/uL (150-450); Red Blood Count 4.18 10^6 /uL (4.18-5.48); Red Cell Distribution Width 16 % (10-15); White Blood Count 12.6 10^3/uL (3.5-10.8)
[2020-12-25 22:09] LABS: Calcium 8.2 mg/dL (8.6-10.3); EGFR African American 41.9 (>60); EGFR Non-African American 34.6 (>60); Magnesium 1.6 mg/dL (1.9-2.7); Potassium 4.3 mmol/L (3.5-5.0)
[2020-12-26 05:31] LABS: ABS Eosinophils 0.1 10^3/ul (0-0.6); ABS Lymphocytes 0.8 10^3/ul (1.0-4.8); ABS Neutrophils 6.8 10^3/ul (1.5-7.7); Eosinophil % 1.4 %; Hematocrit 34 % (42-52); Lymphocyte % 8.7 %; Mean Corpuscular HGB Conc 33 g/dL (31-36); Mean Corpuscular Hemoglobin 27 pg (27-31); Mean Corpuscular Volume 83 fL (80-94); Mean Platelet Volume 8.3 fL (7.4-10.4); Platelet Count 121 10^3/uL (150-450); Red Blood Count 4.04 10^6 /uL (4.18-5.48); Red Cell Distribution Width 16 % (10-15); White Blood Count 8.7 10^3/uL (3.5-10.8)
[2020-12-26 07:47] LABS: Calcium 8.2 mg/dL (8.6-10.3); Potassium 4.2 mmol/L (3.5-5.0)
[2020-12-26 07:53] LABS: EGFR African American 42.1 (>60); EGFR Non-African American 34.8 (>60)
[2020-12-26] MEDS: Nicotine PATCH 14 MG/24 HR PATCH TRANSDERM SCH (08:47)
[2020-12-26] MEDS: Senna TAB 8.6 mg TAB PO SCH (21:23)
[2020-12-27] MEDS: Nicotine PATCH 14 MG/24 HR PATCH TRANSDERM SCH (07:50)
[2020-12-28] MEDS: Senna TAB 8.6 mg TAB PO SCH ×2 (00:20→20:43)
[2020-12-28] MEDS: Nitrofurantoin (monohydrate/macrocrystals) 100 mg CAP PO SCH ×3 (00:21→20:48)
[2020-12-28 08:05] LABS: EGFR African American 47.8 (>60); EGFR Non-African American 39.5 (>60); Potassium 4.4 mmol/L (3.5-5.0)
[2020-12-28] MEDS: Nicotine PATCH 14 MG/24 HR PATCH TRANSDERM SCH (08:34)
[2020-12-28] MEDS: Nicotine GUM 2MG FRUIT FLAVOR PO PRN (20:48)
[2020-12-29] MEDS: Nicotine PATCH 14 MG/24 HR PATCH TRANSDERM SCH (09:07)
[2020-12-29 09:23] LABS: ABS Basophils 0.1 10^3/ul (0-0.2); ABS Eosinophils 0.2 10^3/ul (0-0.6); ABS Lymphocytes 1.3 10^3/ul (1.0-4.8); ABS Monocytes 0.6 10^3/ul (0-0.8); ABS Neutrophils 2.6 10^3/ul (1.5-7.7); Eosinophil % 3.3 %; Hematocrit 36 % (42-52); Hemoglobin 11.5 g/dL (14.0-18.0); Lymphocyte % 27.5 %; Mean Corpuscular HGB Conc 32 g/dL (31-36); Mean Corpuscular Hemoglobin 27 pg (27-31); Mean Corpuscular Volume 84 fL (80-94); Mean Platelet Volume 8.4 fL (7.4-10.4); Nucleated Red Blood Cells % 0.1; Platelet Count 169 10^3/uL (150-450); Red Cell Distribution Width 17 % (10-15); White Blood Count 4.6 10^3/uL (3.5-10.8)
[2020-12-29 09:45] LABS: Albumin 3.7 g/dL (3.2-5.2); Albumin/Globulin Ratio 1.5 (1-3); Calcium 8.6 mg/dL (8.6-10.3); EGFR African American 53.8 (>60); EGFR Non-African American 44.5 (>60); Globulin 2.5 g/dL (2-4); Magnesium 1.7 mg/dL (1.9-2.7); Potassium 4.3 mmol/L (3.5-5.0); Total Bilirubin 0.4 mg/dL (0.2-1.0); Total Protein 6.2 g/dL (6.4-8.9)
[2020-12-29] MEDS: Nitrofurantoin (monohydrate/macrocrystals) 100 mg CAP PO SCH ×2 (10:31→21:19)
[2020-12-29] MEDS: Senna TAB 8.6 mg TAB PO SCH (21:18)
[2020-12-30] MEDS: Nicotine PATCH 7 MG/24 HR PATCH TRANSDERM SCH (08:47)
[2020-12-30] MEDS: Nitrofurantoin (monohydrate/macrocrystals) 100 mg CAP PO SCH ×2 (08:53→20:05)
[2020-12-30] MEDS: Senna TAB 8.6 mg TAB PO SCH (20:05)
[2020-12-31] MEDS: Nitrofurantoin (monohydrate/macrocrystals) 100 mg CAP PO SCH ×2 (08:45→20:46)
[2020-12-31] MEDS: Nicotine PATCH 7 MG/24 HR PATCH TRANSDERM SCH (08:48)
[2020-12-31] MEDS: Senna TAB 8.6 mg TAB PO SCH (19:59)
[2021-01-01] MEDS: Nicotine PATCH 7 MG/24 HR PATCH TRANSDERM SCH (08:53)
[2021-01-01] MEDS: Senna TAB 8.6 mg TAB PO SCH (20:02)
[2021-01-02] MEDS: Nicotine PATCH 7 MG/24 HR PATCH TRANSDERM SCH (08:57)
[2021-01-02] MEDS: Senna TAB 8.6 mg TAB PO SCH (21:10)
[2021-01-03] MEDS: Nicotine PATCH 7 MG/24 HR PATCH TRANSDERM SCH (07:49)
[2021-01-03] MEDS: Senna TAB 8.6 mg TAB PO SCH (19:42)
[2021-01-04] MEDS: Nicotine PATCH 7 MG/24 HR PATCH TRANSDERM SCH (09:15)
[2021-01-04] MEDS: Senna TAB 8.6 mg TAB PO SCH (19:58)
[2021-01-05] MEDS: Nicotine PATCH 7 MG/24 HR PATCH TRANSDERM SCH (09:22)
[2021-01-05] MEDS: Senna TAB 8.6 mg TAB PO SCH (20:57)
[2021-01-06] MEDS: Nicotine PATCH 7 MG/24 HR PATCH TRANSDERM SCH (08:37)
[2021-01-06] MEDS: Senna TAB 8.6 mg TAB PO SCH (20:33)
[2021-01-07 07:33] VITALS: BP 107/76
[2021-01-07] MEDS: Nicotine PATCH 7 MG/24 HR PATCH TRANSDERM SCH (11:01)
== END 2021-01-07 15:45 | disposition left against medical advice (07) | DRG 640 ==
LOC: ED 23:45 → SUATTDRO 11-15 12:23 → MED 11-15 15:58
PROVIDERS: ADMIT Pediatrics; ATTEND Internal Medicine

== ENCOUNTER 2021-01-08 07:36 | Inpatient (IN) ==
[2021-01-08 08:58] LABS: ABS Lymphocytes 0.7 10^3/ul (1.0-4.8); ABS Monocytes 0.6 10^3/ul (0-0.8); ABS Neutrophils 12.1 10^3/ul (1.5-7.7); Eosinophil % 0.2 %; Hematocrit 37 % (42-52); Hemoglobin 11.8 g/dL (14.0-18.0); Lymphocyte % 5.4 %; Mean Corpuscular HGB Conc 32 g/dL (31-36); Mean Corpuscular Hemoglobin 26 pg (27-31); Mean Corpuscular Volume 83 fL (80-94); Mean Platelet Volume 8.1 fL (7.4-10.4); Platelet Count 252 10^3/uL (150-450); Red Cell Distribution Width 17 % (10-15); White Blood Count 13.5 10^3/uL (3.5-10.8)
[2021-01-08 09:15] LABS: Albumin 4.1 g/dL (3.2-5.2); Albumin/Globulin Ratio 1.5 (1-3); Calcium 8.9 mg/dL (8.6-10.3); EGFR African American 38.6 (>60); EGFR Non-African American 31.9 (>60); Globulin 2.7 g/dL (2-4); Potassium 4.2 mmol/L (3.5-5.0); Total Bilirubin 0.5 mg/dL (0.2-1.0); Total Protein 6.8 g/dL (6.4-8.9)
[2021-01-08] MEDS ORDERED: Morphine 4 MG/ML VIAL (1 ml) IV ONE (09:53)
[2021-01-08 10:33] LABS: Rapid COVID-19 Molecular Undetected (Undetected)
[2021-01-08] MEDS ORDERED: Albuterol/Ipratropium NEB.SOL (2.5/0.5 MG) 3 ML NEB.SOLN INH PRN (10:38)
[2021-01-08] MEDS: Morphine 2 MG/ML SYRINGE IV PRN ×3 (10:58→17:11)
[2021-01-08] MEDS ORDERED: NS 0.9% 1000 ml BAG 1,000 ML IV ONE (11:22)
[2021-01-08 13:20] LABS: Activated Partial Thrombo Time 30.8 seconds (26.0-38.0); INR 1.47 (0.86-1.15)
[2021-01-08] MEDS: Nicotine PATCH 7 MG/24 HR PATCH TRANSDERM SCH (15:29)
[2021-01-08] MEDS ORDERED: Lactated Ringers 1000 ml BAG 750 ML IV ONE (18:30)
[2021-01-08] MEDS: Lidocaine PATCH 5% PATCH TRANSDERM SCH (18:44)
[2021-01-08 19:08] LABS: ABS Monocytes 1.3 10^3/ul (0-0.8); ABS Neutrophils 8.8 10^3/ul (1.5-7.7); Eosinophil % 0.2 %; Hematocrit 34 % (42-52); Hemoglobin 10.5 g/dL (14.0-18.0); Mean Corpuscular HGB Conc 31 g/dL (31-36); Mean Corpuscular Hemoglobin 26 pg (27-31); Mean Corpuscular Volume 83 fL (80-94); Mean Platelet Volume 8.1 fL (7.4-10.4); Platelet Count 258 10^3/uL (150-450); Red Blood Count 4.06 10^6 /uL (4.18-5.48); Red Cell Distribution Width 17 % (10-15); White Blood Count 11.1 10^3/uL (3.5-10.8)
[2021-01-08] MEDS: Senna TAB 8.6 mg TAB PO SCH (21:19)
[2021-01-08] MEDS: Lidocaine Patch REMOVE PATCH PATCH OFF SCH (21:19)
[2021-01-08] MEDS: [UNRECOGNIZED DRUG - REMARK] PATCH OFF SCH (21:23)
[2021-01-09] MEDS ORDERED: Lactated Ringers 500 ml BAG 500 ML IV ONE (01:03)
[2021-01-09 04:05] LABS: ABS Monocytes 1.1 10^3/ul (0-0.8); ABS Neutrophils 6.6 10^3/ul (1.5-7.7); Eosinophil % 0.2 %; Hematocrit 31 % (42-52); Lymphocyte % 10.9 %; Mean Corpuscular HGB Conc 33 g/dL (31-36); Mean Corpuscular Hemoglobin 26 pg (27-31); Mean Corpuscular Volume 81 fL (80-94); Mean Platelet Volume 8.3 fL (7.4-10.4); Platelet Count 242 10^3/uL (150-450); Red Cell Distribution Width 17 % (10-15); White Blood Count 8.7 10^3/uL (3.5-10.8)
[2021-01-09 04:22] LABS: Calcium 8.5 mg/dL (8.6-10.3); EGFR African American 45.6 (>60); EGFR Non-African American 37.7 (>60); Potassium 4.2 mmol/L (3.5-5.0)
[2021-01-09] MEDS: Morphine 2 MG/ML SYRINGE IV PRN (04:58)
[2021-01-09] MEDS: Lactated Ringers 1000 ml BAG 1,000 ML IV SCH ×2 (06:33→13:43)
[2021-01-09 07:20] LABS: Urine Benzodiazepine Screen Presumptive Positive (None Detect); Urine Cannabinoids Screen Presumptive Positive (None Detect); Urine Opiates Screen Presumptive Positive (None Detect)
[2021-01-09] MEDS ORDERED: Bupivacaine 0.25% SDV 30 ML ONE (07:38)
[2021-01-09] MEDS ORDERED: Lidocaine 1% w EPI 1:200,000 SDV 30 ML VIAL ONE (07:39)
[2021-01-09] MEDS ORDERED: Lidocaine 1% w EPI 1:100,000 MDV 20 ML VIAL ONE (07:40)
[2021-01-09] MEDS ORDERED: ceFAZolin 2 GM in NS PREMIX 2 GM/100 ML BAG IVPB ONE (08:00)
[2021-01-09] MEDS ORDERED: fentaNYL 250 mcg/5 ml 50 MCG/ML 5 ml VIAL (250 MCG) ONE (08:07)
[2021-01-09] MEDS ORDERED: Rocuronium 50 mg VIAL 10 mg/ml 5 ml VIAL (50 mg) ONE (08:07)
[2021-01-09] MEDS ORDERED: Propofol 10 MG/ML 20 ML BTL ONE (08:07)
[2021-01-09] MEDS ORDERED: Metoprolol Tartrate 5 mg VIAL 5 ml VIAL (1 mg/ml) ONE (09:07)
[2021-01-09] MEDS ORDERED: Ondansetron 4 mg VIAL 2 MG/ML 2 ml VIAL IV PRN (11:23)
[2021-01-09] MEDS ORDERED: HYDROmorphone 1 MG/1 ML SYRINGE IV PRN (11:23)
[2021-01-09] MEDS ORDERED: fentaNYL 100 mcg/2 ml 50 MCG/ML VIAL IV PRN (11:23)
[2021-01-09] MEDS: Lidocaine PATCH 5% PATCH TRANSDERM SCH (13:45)
[2021-01-09] MEDS: Nicotine PATCH 7 MG/24 HR PATCH TRANSDERM SCH (13:52)
[2021-01-09] MEDS: Vitamin THERAPEUTIC TAB PO SCH (13:53)
[2021-01-09] MEDS: ceFAZolin 1 GM X 3 DOSES POST-OP Q8H (AddVan) IVPB SCH (17:07)
[2021-01-09] MEDS ORDERED: Lactated Ringers 1000 ml BAG 1,000 ML IV SCH (17:47)
[2021-01-09] MEDS: Senna TAB 8.6 mg TAB PO SCH (21:16)
[2021-01-09] MEDS: [UNRECOGNIZED DRUG - REMARK] PATCH OFF SCH (21:30)
[2021-01-09] MEDS: Lidocaine Patch REMOVE PATCH PATCH OFF SCH (21:30)
[2021-01-10] MEDS: ceFAZolin 1 GM X 3 DOSES POST-OP Q8H (AddVan) IVPB SCH ×2 (00:20→09:30)
[2021-01-10 06:04] LABS: Hematocrit 24 % (42-52); Hemoglobin 7.7 g/dL (14.0-18.0); Mean Corpuscular HGB Conc 32 g/dL (31-36); Mean Corpuscular Hemoglobin 27 pg (27-31); Mean Corpuscular Volume 82 fL (80-94); Mean Platelet Volume 8.7 fL (7.4-10.4); Platelet Count 220 10^3/uL (150-450); Red Blood Count 2.92 10^6 /uL (4.18-5.48); Red Cell Distribution Width 17 % (10-15); White Blood Count 7.3 10^3/uL (3.5-10.8)
[2021-01-10 06:19] LABS: Calcium 7.6 mg/dL (8.6-10.3); EGFR African American 42.1 (>60); EGFR Non-African American 34.8 (>60); Potassium 4.1 mmol/L (3.5-5.0)
[2021-01-10] MEDS: Morphine 2 MG/ML SYRINGE IV PRN ×2 (07:57→19:45)
[2021-01-10] MEDS: Vitamin THERAPEUTIC TAB PO SCH (08:41)
[2021-01-10] MEDS: Lidocaine PATCH 5% PATCH TRANSDERM SCH (08:56)
[2021-01-10] MEDS: Nicotine PATCH 7 MG/24 HR PATCH TRANSDERM SCH (09:35)
[2021-01-10] MEDS ORDERED: NS 0.9% 1000 ml BAG 1,000 ML IV SCH (11:15)
[2021-01-10] MEDS: Senna TAB 8.6 mg TAB PO SCH (21:25)
[2021-01-10] MEDS: [UNRECOGNIZED DRUG - REMARK] PATCH OFF SCH (21:31)
[2021-01-10] MEDS: Lidocaine Patch REMOVE PATCH PATCH OFF SCH (21:31)
[2021-01-11] MEDS ORDERED: Acetaminophen IV 1 GM/100ML 100 ML IV ONE (03:00)
[2021-01-11] MEDS: Morphine 2 MG/ML SYRINGE IV PRN (04:02)
[2021-01-11] MEDS: Nicotine PATCH 7 MG/24 HR PATCH TRANSDERM SCH (09:04)
[2021-01-11] MEDS: Lidocaine PATCH 5% PATCH TRANSDERM SCH (09:05)
[2021-01-11] MEDS: Vitamin THERAPEUTIC TAB PO SCH (09:07)
[2021-01-11 09:41] LABS: Hematocrit 22 % (42-52); Hemoglobin 7.1 g/dL (14.0-18.0); Mean Corpuscular HGB Conc 32 g/dL (31-36); Mean Corpuscular Hemoglobin 26 pg (27-31); Mean Corpuscular Volume 82 fL (80-94); Mean Platelet Volume 8.3 fL (7.4-10.4); Platelet Count 183 10^3/uL (150-450); Red Cell Distribution Width 17 % (10-15)
[2021-01-11 10:00] LABS: Calcium 8.3 mg/dL (8.6-10.3); EGFR African American 42.4 (>60); Potassium 3.9 mmol/L (3.5-5.0)
[2021-01-11] MEDS ORDERED: Polyethylene Glycol 3350 17 GM PACKET PO PRN (15:27)
[2021-01-11] MEDS ORDERED: Senna TAB 8.6 mg TAB PO PRN (15:27)
[2021-01-11] MEDS: Magnesium Hydroxide LIQ 30 ML UDC PO PRN (15:49)
[2021-01-11] MEDS: Senna TAB 8.6 mg TAB PO SCH (21:55)
[2021-01-11] MEDS: Magnesium Hydroxide LIQ 30 ML UDC PO SCH (21:55)
[2021-01-11] MEDS: Lidocaine Patch REMOVE PATCH PATCH OFF SCH (22:17)
[2021-01-11] MEDS: [UNRECOGNIZED DRUG - REMARK] PATCH OFF SCH (22:23)
[2021-01-12 08:05] LABS: Hematocrit 22 % (42-52); Hemoglobin 7.2 g/dL (14.0-18.0); Mean Corpuscular HGB Conc 33 g/dL (31-36); Mean Corpuscular Hemoglobin 26 pg (27-31); Mean Corpuscular Volume 81 fL (80-94); Mean Platelet Volume 8.1 fL (7.4-10.4); Platelet Count 204 10^3/uL (150-450); Red Blood Count 2.73 10^6 /uL (4.18-5.48); Red Cell Distribution Width 17 % (10-15)
[2021-01-12 08:23] LABS: EGFR African American 47.1 (>60)
[2021-01-12] MEDS: Nicotine PATCH 7 MG/24 HR PATCH TRANSDERM SCH (08:32)
[2021-01-12] MEDS: Lidocaine PATCH 5% PATCH TRANSDERM SCH (08:34)
[2021-01-12] MEDS: Vitamin THERAPEUTIC TAB PO SCH (08:36)
[2021-01-12] MEDS: Magnesium Hydroxide LIQ 30 ML UDC PO SCH ×2 (10:51→20:21)
[2021-01-12] MEDS: Senna TAB 8.6 mg TAB PO SCH (20:22)
[2021-01-12] MEDS: Lidocaine Patch REMOVE PATCH PATCH OFF SCH (20:32)
[2021-01-12] MEDS: [UNRECOGNIZED DRUG - REMARK] PATCH OFF SCH (20:32)
[2021-01-13] MEDS ORDERED: Lidocaine 2% JELLY 6 ML TOPICAL ONE (03:12)
[2021-01-13 05:53] LABS: Hematocrit 23 % (42-52); Hemoglobin 7.3 g/dL (14.0-18.0); Mean Corpuscular HGB Conc 32 g/dL (31-36); Mean Corpuscular Hemoglobin 26 pg (27-31); Mean Corpuscular Volume 82 fL (80-94); Mean Platelet Volume 8.5 fL (7.4-10.4); Platelet Count 194 10^3/uL (150-450); Red Cell Distribution Width 16 % (10-15); White Blood Count 4.2 10^3/uL (3.5-10.8)
[2021-01-13 06:05] LABS: Calcium 8.2 mg/dL (8.6-10.3); EGFR African American 51.5 (>60); EGFR Non-African American 42.6 (>60); Potassium 3.8 mmol/L (3.5-5.0)
[2021-01-13] MEDS: Lidocaine PATCH 5% PATCH TRANSDERM SCH (08:47)
[2021-01-13] MEDS: Vitamin THERAPEUTIC TAB PO SCH (08:47)
[2021-01-13] MEDS: Magnesium Hydroxide LIQ 30 ML UDC PO SCH ×2 (08:47→20:35)
[2021-01-13] MEDS: Nicotine PATCH 7 MG/24 HR PATCH TRANSDERM SCH (12:04)
[2021-01-13] MEDS: Senna TAB 8.6 mg TAB PO SCH (20:29)
[2021-01-13] MEDS: Lidocaine Patch REMOVE PATCH PATCH OFF SCH (21:13)
[2021-01-13] MEDS: [UNRECOGNIZED DRUG - REMARK] PATCH OFF SCH (21:13)
[2021-01-14] MEDS: Magnesium Hydroxide LIQ 30 ML UDC PO SCH ×2 (07:39→20:23)
[2021-01-14] MEDS: Morphine 2 MG/ML SYRINGE IV PRN ×4 (07:39→21:47)
[2021-01-14] MEDS: Vitamin THERAPEUTIC TAB PO SCH (07:40)
[2021-01-14] MEDS: Lidocaine PATCH 5% PATCH TRANSDERM SCH (07:41)
[2021-01-14] MEDS: Nicotine PATCH 7 MG/24 HR PATCH TRANSDERM SCH (07:41)
[2021-01-14] MEDS: Senna TAB 8.6 mg TAB PO SCH (20:20)
[2021-01-14] MEDS: Lidocaine Patch REMOVE PATCH PATCH OFF SCH (20:23)
[2021-01-14] MEDS: [UNRECOGNIZED DRUG - REMARK] PATCH OFF SCH (20:23)
[2021-01-15] MEDS: Morphine 2 MG/ML SYRINGE IV PRN ×5 (02:35→20:11)
[2021-01-15] MEDS: Vitamin THERAPEUTIC TAB PO SCH (10:47)
[2021-01-15] MEDS: Magnesium Hydroxide LIQ 30 ML UDC PO SCH ×2 (10:47→20:07)
[2021-01-15] MEDS: Lidocaine PATCH 5% PATCH TRANSDERM SCH (10:48)
[2021-01-15] MEDS: Nicotine PATCH 7 MG/24 HR PATCH TRANSDERM SCH (10:49)
[2021-01-15] MEDS: Senna TAB 8.6 mg TAB PO SCH (20:05)
[2021-01-15] MEDS: Lidocaine Patch REMOVE PATCH PATCH OFF SCH (20:07)
[2021-01-15] MEDS: [UNRECOGNIZED DRUG - REMARK] PATCH OFF SCH (20:09)
[2021-01-16] MEDS: Morphine 2 MG/ML SYRINGE IV PRN ×3 (00:24→20:08)
[2021-01-16 05:34] LABS: Hematocrit 23 % (42-52); Hemoglobin 7.3 g/dL (14.0-18.0); Mean Corpuscular HGB Conc 31 g/dL (31-36); Mean Corpuscular Hemoglobin 26 pg (27-31); Mean Corpuscular Volume 83 fL (80-94); Mean Platelet Volume 8.4 fL (7.4-10.4); Platelet Count 230 10^3/uL (150-450); Red Blood Count 2.79 10^6 /uL (4.18-5.48); Red Cell Distribution Width 17 % (10-15)
[2021-01-16 05:51] LABS: Calcium 8.7 mg/dL (8.6-10.3); EGFR African American 49.1 (>60); EGFR Non-African American 40.6 (>60); Potassium 4.3 mmol/L (3.5-5.0)
[2021-01-16] MEDS ORDERED: Senna TAB 8.6 mg TAB PO PRN (09:03)
[2021-01-16] MEDS: Lidocaine PATCH 5% PATCH TRANSDERM SCH (09:38)
[2021-01-16] MEDS: Vitamin THERAPEUTIC TAB PO SCH (09:44)
[2021-01-16] MEDS: Iron Sucrose 200 MG in NS 0.9% 100 ml BAG 100 ML IVPB SCH (11:21)
[2021-01-16] MEDS: Nicotine PATCH 7 MG/24 HR PATCH TRANSDERM SCH (13:03)
[2021-01-16] MEDS: Magnesium Hydroxide LIQ 30 ML UDC PO SCH (13:04)
[2021-01-16] MEDS: Lidocaine Patch REMOVE PATCH PATCH OFF SCH (21:55)
[2021-01-17] MEDS: Vitamin THERAPEUTIC TAB PO SCH (09:25)
[2021-01-17] MEDS: Lidocaine PATCH 5% PATCH TRANSDERM SCH (09:28)
[2021-01-17] MEDS: Iron Sucrose 200 MG in NS 0.9% 100 ml BAG 100 ML IVPB SCH (09:29)
[2021-01-17] MEDS: Lidocaine Patch REMOVE PATCH PATCH OFF SCH (21:30)
[2021-01-18] MEDS: Morphine 2 MG/ML SYRINGE IV PRN (02:09)
[2021-01-18] MEDS: Vitamin THERAPEUTIC TAB PO SCH (08:58)
[2021-01-18] MEDS: Lidocaine PATCH 5% PATCH TRANSDERM SCH (09:07)
[2021-01-18] MEDS: Iron Sucrose 200 MG in NS 0.9% 100 ml BAG 100 ML IVPB SCH (09:07)
[2021-01-18 11:01] LABS: Hematocrit 24 % (42-52); Hemoglobin 7.7 g/dL (14.0-18.0)
[2021-01-18] MEDS: Lidocaine Patch REMOVE PATCH PATCH OFF SCH (20:57)
[2021-01-19] MEDS: Iron Sucrose 200 MG in NS 0.9% 100 ml BAG 100 ML IVPB SCH ×2 (09:57→12:17)
[2021-01-19] MEDS: Lidocaine PATCH 5% PATCH TRANSDERM SCH (10:02)
[2021-01-19] MEDS: Vitamin THERAPEUTIC TAB PO SCH (10:04)
[2021-01-19] MEDS: Lidocaine Patch REMOVE PATCH PATCH OFF SCH (21:18)
[2021-01-20] MEDS: Lidocaine PATCH 5% PATCH TRANSDERM SCH (09:40)
[2021-01-20] MEDS: Vitamin THERAPEUTIC TAB PO SCH (09:40)
[2021-01-20] MEDS: Lidocaine Patch REMOVE PATCH PATCH OFF SCH (22:28)
[2021-01-21] MEDS: Vitamin THERAPEUTIC TAB PO SCH (09:16)
[2021-01-21] MEDS: Lidocaine PATCH 5% PATCH TRANSDERM SCH (09:17)
[2021-01-21 09:40] LABS: ABS Eosinophils 0.2 10^3/ul (0-0.6); ABS Lymphocytes 1.3 10^3/ul (1.0-4.8); ABS Monocytes 0.3 10^3/ul (0-0.8); ABS Neutrophils 2.5 10^3/ul (1.5-7.7); Eosinophil % 3.7 %; Hematocrit 27 % (42-52); Hemoglobin 8.5 g/dL (14.0-18.0); Mean Corpuscular HGB Conc 31 g/dL (31-36); Mean Corpuscular Hemoglobin 28 pg (27-31); Mean Corpuscular Volume 88 fL (80-94); Mean Platelet Volume 8.4 fL (7.4-10.4); Nucleated Red Blood Cells % 0.1; Platelet Count 219 10^3/uL (150-450); Red Blood Count 3.09 10^6 /uL (4.18-5.48); Red Cell Distribution Width 20 % (10-15); White Blood Count 4.3 10^3/uL (3.5-10.8)
[2021-01-21 09:55] LABS: Calcium 8.6 mg/dL (8.6-10.3); EGFR African American 47.1 (>60); Potassium 3.7 mmol/L (3.5-5.0)
[2021-01-21] MEDS: Morphine ER 15 mg TAB ** extended release PO PRN (15:46)
[2021-01-21] MEDS: Lidocaine Patch REMOVE PATCH PATCH OFF SCH (19:57)
[2021-01-22] MEDS: Vitamin THERAPEUTIC TAB PO SCH (09:13)
[2021-01-22] MEDS: Lidocaine PATCH 5% PATCH TRANSDERM SCH (09:16)
[2021-01-22] MEDS: Morphine ER 15 mg TAB ** extended release PO PRN (21:11)
[2021-01-22] MEDS: Lidocaine Patch REMOVE PATCH PATCH OFF SCH (21:12)
[2021-01-23] MEDS: Morphine ER 15 mg TAB ** extended release PO PRN (10:37)
[2021-01-23] MEDS: Vitamin THERAPEUTIC TAB PO SCH (10:37)
[2021-01-23] MEDS: Magnesium Hydroxide LIQ 30 ML UDC PO PRN ×2 (10:41→21:11)
[2021-01-23] MEDS: Lidocaine PATCH 5% PATCH TRANSDERM SCH (10:42)
[2021-01-23] MEDS: Lidocaine Patch REMOVE PATCH PATCH OFF SCH (21:11)
[2021-01-24] MEDS: Morphine ER 15 mg TAB ** extended release PO PRN ×2 (01:57→18:02)
[2021-01-24 06:10] LABS: ABS Eosinophils 0.2 10^3/ul (0-0.6); ABS Lymphocytes 1.3 10^3/ul (1.0-4.8); ABS Monocytes 0.4 10^3/ul (0-0.8); ABS Neutrophils 3.2 10^3/ul (1.5-7.7); Hematocrit 29 % (42-52); Lymphocyte % 25.1 %; Mean Corpuscular HGB Conc 31 g/dL (31-36); Mean Corpuscular Hemoglobin 27 pg (27-31); Mean Corpuscular Volume 89 fL (80-94); Mean Platelet Volume 7.9 fL (7.4-10.4); Nucleated Red Blood Cells % 0.1; Platelet Count 237 10^3/uL (150-450); Red Blood Count 3.29 10^6 /uL (4.18-5.48); Red Cell Distribution Width 22 % (10-15); White Blood Count 5.1 10^3/uL (3.5-10.8)
[2021-01-24 06:26] LABS: Calcium 8.7 mg/dL (8.6-10.3); EGFR African American 42.9 (>60); EGFR Non-African American 35.4 (>60); Potassium 4.4 mmol/L (3.5-5.0)
[2021-01-24] MEDS: Vitamin THERAPEUTIC TAB PO SCH (08:16)
[2021-01-24] MEDS: Lidocaine PATCH 5% PATCH TRANSDERM SCH (08:18)
[2021-01-24 10:29] LABS: Rapid COVID-19 Molecular Undetected (Undetected)
[2021-01-24] MEDS ORDERED: Lorazepam PYXIS KEY PRN (13:16)
[2021-01-24] MEDS ORDERED: LORazepam 2 mg VIAL 1 ml IV PUSH ONE (13:16)
[2021-01-24] MEDS: Lidocaine Patch REMOVE PATCH PATCH OFF SCH (21:34)
[2021-01-25] MEDS: Vitamin THERAPEUTIC TAB PO SCH (10:05)
[2021-01-25] MEDS: Lidocaine PATCH 5% PATCH TRANSDERM SCH (10:08)
[2021-01-25 11:55] VITALS: BP 106/76
== END 2021-01-25 10:47 | disposition swing bed (61) | DRG 481 ==
LOC: ED 07:36 → SSU 12:33 → SUATTDRO 12:54 → SSU 12:54
PROVIDERS: ADMIT Internal Medicine; ATTEND Internal Medicine

== ENCOUNTER 2021-01-25 10:55 | Inpatient (IN) ==
[2021-01-25] MEDS ORDERED: Ondansetron 4 mg VIAL 2 MG/ML 2 ml VIAL IV PRN (11:00)
[2021-01-25] MEDS ORDERED: Albuterol/Ipratropium NEB.SOL (2.5/0.5 MG) 3 ML NEB.SOLN INH PRN (11:03)
[2021-01-25] MEDS: Senna TAB 8.6 mg TAB PO SCH (20:37)
[2021-01-25] MEDS: Lidocaine Patch REMOVE NOTE PATCH OFF SCH (20:38)
[2021-01-26] MEDS: Morphine ER 15 mg TAB ** extended release PO PRN (00:33)
[2021-01-26] MEDS: Lidocaine PATCH 5% PATCH TRANSDERM SCH (09:09)
[2021-01-26] MEDS: Vitamin THERAPEUTIC TAB PO SCH (09:12)
[2021-01-26] MEDS: Senna TAB 8.6 mg TAB PO SCH (21:44)
[2021-01-26] MEDS: Lidocaine Patch REMOVE NOTE PATCH OFF SCH (21:48)
[2021-01-27] MEDS: Lidocaine PATCH 5% PATCH TRANSDERM SCH (09:52)
[2021-01-27] MEDS: Vitamin THERAPEUTIC TAB PO SCH (09:53)
[2021-01-27] MEDS: Senna TAB 8.6 mg TAB PO SCH (21:10)
[2021-01-27] MEDS: Lidocaine Patch REMOVE NOTE PATCH OFF SCH (21:18)
[2021-01-28] MEDS: Vitamin THERAPEUTIC TAB PO SCH (09:25)
[2021-01-28] MEDS: Lidocaine PATCH 5% PATCH TRANSDERM SCH (09:27)
[2021-01-28] MEDS: Senna TAB 8.6 mg TAB PO SCH (20:37)
[2021-01-28] MEDS: Lidocaine Patch REMOVE NOTE PATCH OFF SCH (22:07)
[2021-01-29] MEDS: Morphine ER 15 mg TAB ** extended release PO PRN ×2 (03:16→15:26)
[2021-01-29] MEDS: Vitamin THERAPEUTIC TAB PO SCH (09:09)
[2021-01-29] MEDS: Lidocaine PATCH 5% PATCH TRANSDERM SCH (09:10)
[2021-01-29] MEDS: Senna TAB 8.6 mg TAB PO SCH (21:33)
[2021-01-29] MEDS: Lidocaine Patch REMOVE NOTE PATCH OFF SCH (21:35)
[2021-01-30] MEDS: Vitamin THERAPEUTIC TAB PO SCH (09:47)
[2021-01-30] MEDS: Lidocaine PATCH 5% PATCH TRANSDERM SCH (09:51)
[2021-01-30] MEDS: Senna TAB 8.6 mg TAB PO SCH (21:17)
[2021-01-30] MEDS: Lidocaine Patch REMOVE NOTE PATCH OFF SCH (21:19)
[2021-01-31] MEDS: Lidocaine PATCH 5% PATCH TRANSDERM SCH (09:01)
[2021-01-31] MEDS: Vitamin THERAPEUTIC TAB PO SCH (09:03)
[2021-01-31] MEDS: Senna TAB 8.6 mg TAB PO SCH (21:14)
[2021-01-31] MEDS: Lidocaine Patch REMOVE NOTE PATCH OFF SCH (21:15)
[2021-02-01] MEDS: Vitamin THERAPEUTIC TAB PO SCH (08:22)
[2021-02-01] MEDS: Lidocaine PATCH 5% PATCH TRANSDERM SCH (08:33)
[2021-02-01] MEDS: Morphine 2 MG/ML SYRINGE IV ONE ×2 (17:34→19:29)
[2021-02-01] MEDS: Senna TAB 8.6 mg TAB PO SCH (21:10)
[2021-02-01] MEDS: Lidocaine Patch REMOVE NOTE PATCH OFF SCH (21:11)
[2021-02-02] MEDS: Vitamin THERAPEUTIC TAB PO SCH (08:13)
[2021-02-02] MEDS: Lidocaine PATCH 5% PATCH TRANSDERM SCH (08:15)
[2021-02-02] MEDS: Senna TAB 8.6 mg TAB PO SCH (21:50)
[2021-02-02] MEDS: Lidocaine Patch REMOVE NOTE PATCH OFF SCH (21:53)
[2021-02-03] MEDS: Vitamin THERAPEUTIC TAB PO SCH (09:28)
[2021-02-03] MEDS: Lidocaine PATCH 5% PATCH TRANSDERM SCH (09:30)
[2021-02-03] MEDS: Lidocaine Patch REMOVE NOTE PATCH OFF SCH (21:05)
[2021-02-03] MEDS: Senna TAB 8.6 mg TAB PO SCH (21:06)
[2021-02-04] MEDS ORDERED: Haloperidol 5 mg/ml SDV IV/IM 5 MG/ML AMP IM PRN (08:15)
[2021-02-04] MEDS ORDERED: Haloperidol 5 mg/ml SDV IV/IM 5 MG/ML AMP ONE (08:25)
[2021-02-04] MEDS: Lidocaine PATCH 5% PATCH TRANSDERM SCH (11:08)
[2021-02-04] MEDS: Vitamin THERAPEUTIC TAB PO SCH (11:09)
[2021-02-04] MEDS: Senna TAB 8.6 mg TAB PO SCH (22:04)
[2021-02-04] MEDS: Lidocaine Patch REMOVE NOTE PATCH OFF SCH (23:04)
[2021-02-05] MEDS: Vitamin THERAPEUTIC TAB PO SCH (08:43)
[2021-02-05] MEDS: Lidocaine PATCH 5% PATCH TRANSDERM SCH (08:48)
[2021-02-05] MEDS: Lidocaine Patch REMOVE NOTE PATCH OFF SCH (21:09)
[2021-02-05] MEDS: Senna TAB 8.6 mg TAB PO SCH (21:10)
[2021-02-06] MEDS: Vitamin THERAPEUTIC TAB PO SCH (08:44)
[2021-02-06] MEDS: Lidocaine PATCH 5% PATCH TRANSDERM SCH (08:46)
[2021-02-06] MEDS: Senna TAB 8.6 mg TAB PO SCH (21:09)
[2021-02-06] MEDS: Lidocaine Patch REMOVE NOTE PATCH OFF SCH (21:10)
[2021-02-07] MEDS: Vitamin THERAPEUTIC TAB PO SCH (10:26)
[2021-02-07] MEDS: Lidocaine PATCH 5% PATCH TRANSDERM SCH (10:26)
[2021-02-07] MEDS: Senna TAB 8.6 mg TAB PO SCH (22:03)
[2021-02-07] MEDS: Lidocaine Patch REMOVE NOTE PATCH OFF SCH (22:04)
[2021-02-08] MEDS: Lidocaine PATCH 5% PATCH TRANSDERM SCH (08:42)
[2021-02-08] MEDS: Vitamin THERAPEUTIC TAB PO SCH (08:46)
[2021-02-08 09:50] LABS: ABS Eosinophils 0.2 10^3/ul (0-0.6); ABS Lymphocytes 1.4 10^3/ul (1.0-4.8); ABS Monocytes 0.6 10^3/ul (0-0.8); ABS Neutrophils 2.4 10^3/ul (1.5-7.7); Eosinophil % 4.1 %; Hematocrit 34 % (42-52); Hemoglobin 10.8 g/dL (14.0-18.0); Lymphocyte % 30.8 %; Mean Corpuscular HGB Conc 32 g/dL (31-36); Mean Corpuscular Hemoglobin 27 pg (27-31); Mean Corpuscular Volume 86 fL (80-94); Platelet Count 164 10^3/uL (150-450); Red Blood Count 3.95 10^6 /uL (4.18-5.48); Red Cell Distribution Width 20 % (10-15); White Blood Count 4.6 10^3/uL (3.5-10.8)
[2021-02-08 10:09] LABS: Calcium 8.6 mg/dL (8.6-10.3); Magnesium 1.6 mg/dL (1.9-2.7); Potassium 4.2 mmol/L (3.5-5.0)
[2021-02-08] MEDS: Senna TAB 8.6 mg TAB PO SCH (20:07)
[2021-02-08] MEDS: Lidocaine Patch REMOVE NOTE PATCH OFF SCH (20:17)
[2021-02-09] MEDS: Vitamin THERAPEUTIC TAB PO SCH (09:25)
[2021-02-09] MEDS: Lidocaine PATCH 5% PATCH TRANSDERM SCH (09:32)
[2021-02-09] MEDS: Senna TAB 8.6 mg TAB PO SCH (20:24)
[2021-02-09] MEDS: Lidocaine Patch REMOVE NOTE PATCH OFF SCH (20:25)
[2021-02-10] MEDS: Vitamin THERAPEUTIC TAB PO SCH (09:22)
[2021-02-10] MEDS: Lidocaine PATCH 5% PATCH TRANSDERM SCH (09:23)
[2021-02-10] MEDS: Senna TAB 8.6 mg TAB PO SCH (19:49)
[2021-02-10] MEDS: Lidocaine Patch REMOVE NOTE PATCH OFF SCH (19:50)
[2021-02-11] MEDS: Vitamin THERAPEUTIC TAB PO SCH (09:21)
[2021-02-11] MEDS: Lidocaine PATCH 5% PATCH TRANSDERM SCH (09:22)
[2021-02-11] MEDS: Senna TAB 8.6 mg TAB PO SCH (20:08)
[2021-02-11] MEDS: Lidocaine Patch REMOVE NOTE PATCH OFF SCH (20:08)
[2021-02-12] MEDS: Vitamin THERAPEUTIC TAB PO SCH (08:46)
[2021-02-12] MEDS: Lidocaine PATCH 5% PATCH TRANSDERM SCH (08:46)
[2021-02-12] MEDS: Senna TAB 8.6 mg TAB PO SCH (19:40)
[2021-02-12] MEDS: Lidocaine Patch REMOVE NOTE PATCH OFF SCH (19:44)
[2021-02-13] MEDS: Vitamin THERAPEUTIC TAB PO SCH (08:18)
[2021-02-13] MEDS: Lidocaine PATCH 5% PATCH TRANSDERM SCH (08:20)
[2021-02-13] MEDS: Senna TAB 8.6 mg TAB PO SCH (21:03)
[2021-02-13] MEDS: Lidocaine Patch REMOVE NOTE PATCH OFF SCH (21:05)
[2021-02-14] MEDS: Vitamin THERAPEUTIC TAB PO SCH (09:07)
[2021-02-14] MEDS: Lidocaine PATCH 5% PATCH TRANSDERM SCH (09:12)
[2021-02-14] MEDS: Senna TAB 8.6 mg TAB PO SCH (21:32)
[2021-02-14] MEDS: Lidocaine Patch REMOVE NOTE PATCH OFF SCH (21:36)
[2021-02-15] MEDS: Lidocaine PATCH 5% PATCH TRANSDERM SCH (08:22)
[2021-02-15] MEDS: Vitamin THERAPEUTIC TAB PO SCH (08:23)
[2021-02-15] MEDS: Senna TAB 8.6 mg TAB PO SCH (20:03)
[2021-02-15] MEDS: Lidocaine Patch REMOVE NOTE PATCH OFF SCH (22:38)
[2021-02-16] MEDS: Lidocaine PATCH 5% PATCH TRANSDERM SCH (07:58)
[2021-02-16] MEDS: Vitamin THERAPEUTIC TAB PO SCH (07:58)
[2021-02-16] MEDS: Senna TAB 8.6 mg TAB PO SCH (20:28)
[2021-02-16] MEDS: Lidocaine Patch REMOVE NOTE PATCH OFF SCH (20:29)
[2021-02-17] MEDS: Vitamin THERAPEUTIC TAB PO SCH (09:21)
[2021-02-17] MEDS: Lidocaine PATCH 5% PATCH TRANSDERM SCH (09:22)
[2021-02-17] MEDS: Senna TAB 8.6 mg TAB PO SCH (20:46)
[2021-02-17] MEDS: Lidocaine Patch REMOVE NOTE PATCH OFF SCH (20:47)
[2021-02-18] MEDS: Vitamin THERAPEUTIC TAB PO SCH (08:50)
[2021-02-18] MEDS: Lidocaine PATCH 5% PATCH TRANSDERM SCH (08:51)
[2021-02-18] MEDS: Lidocaine Patch REMOVE NOTE PATCH OFF SCH (20:55)
[2021-02-18] MEDS: Senna TAB 8.6 mg TAB PO SCH (20:56)
[2021-02-19] MEDS: Vitamin THERAPEUTIC TAB PO SCH (11:23)
[2021-02-19] MEDS: Lidocaine PATCH 5% PATCH TRANSDERM SCH (11:24)
[2021-02-19] MEDS: Lidocaine Patch REMOVE NOTE PATCH OFF SCH (20:21)
[2021-02-19] MEDS: Senna TAB 8.6 mg TAB PO SCH (20:22)
[2021-02-20] MEDS: Vitamin THERAPEUTIC TAB PO SCH (08:50)
[2021-02-20] MEDS: Lidocaine PATCH 5% PATCH TRANSDERM SCH (08:52)
[2021-02-20] MEDS: Senna TAB 8.6 mg TAB PO SCH (21:38)
[2021-02-20] MEDS: Lidocaine Patch REMOVE NOTE PATCH OFF SCH (21:44)
[2021-02-21] MEDS: Lidocaine PATCH 5% PATCH TRANSDERM SCH (11:28)
[2021-02-21] MEDS: Vitamin THERAPEUTIC TAB PO SCH (11:28)
[2021-02-21] MEDS: Lidocaine Patch REMOVE NOTE PATCH OFF SCH (20:12)
[2021-02-21] MEDS: Senna TAB 8.6 mg TAB PO SCH (21:13)
[2021-02-22] MEDS: Lidocaine PATCH 5% PATCH TRANSDERM SCH (08:26)
[2021-02-22] MEDS: Vitamin THERAPEUTIC TAB PO SCH (08:26)
[2021-02-22] MEDS: Lidocaine Patch REMOVE NOTE PATCH OFF SCH (19:54)
[2021-02-22] MEDS: Senna TAB 8.6 mg TAB PO SCH (19:54)
[2021-02-23] MEDS: Vitamin THERAPEUTIC TAB PO SCH (08:58)
[2021-02-23] MEDS: Lidocaine PATCH 5% PATCH TRANSDERM SCH (09:01)
[2021-02-23] MEDS: Senna TAB 8.6 mg TAB PO SCH (20:36)
[2021-02-23] MEDS: Lidocaine Patch REMOVE NOTE PATCH OFF SCH (20:47)
[2021-02-24 07:35] LABS: Hematocrit 39 % (42-52); Hemoglobin 12.5 g/dL (14.0-18.0); Mean Corpuscular HGB Conc 32 g/dL (31-36); Mean Corpuscular Hemoglobin 28 pg (27-31); Mean Corpuscular Volume 85 fL (80-94); Mean Platelet Volume 8.6 fL (7.4-10.4); Platelet Count 166 10^3/uL (150-450); Red Blood Count 4.54 10^6 /uL (4.18-5.48); Red Cell Distribution Width 19 % (10-15)
[2021-02-24 07:43] LABS: Calcium 9.2 mg/dL (8.6-10.3); Potassium 4.5 mmol/L (3.5-5.0)
[2021-02-24] MEDS: Lidocaine PATCH 5% PATCH TRANSDERM SCH (08:19)
[2021-02-24] MEDS: Vitamin THERAPEUTIC TAB PO SCH (08:21)
[2021-02-24] MEDS: Lidocaine Patch REMOVE NOTE PATCH OFF SCH (20:10)
[2021-02-24] MEDS: Senna TAB 8.6 mg TAB PO SCH (20:12)
[2021-02-25] MEDS: Vitamin THERAPEUTIC TAB PO SCH (08:54)
[2021-02-25] MEDS: Lidocaine PATCH 5% PATCH TRANSDERM SCH (08:57)
[2021-02-25] MEDS: Senna TAB 8.6 mg TAB PO SCH (19:57)
[2021-02-25] MEDS: Lidocaine Patch REMOVE NOTE PATCH OFF SCH (19:58)
[2021-02-26] MEDS: Vitamin THERAPEUTIC TAB PO SCH (09:16)
[2021-02-26] MEDS: Lidocaine PATCH 5% PATCH TRANSDERM SCH (09:24)
[2021-02-26] MEDS: Lidocaine Patch REMOVE NOTE PATCH OFF SCH (20:36)
[2021-02-26] MEDS: Senna TAB 8.6 mg TAB PO SCH (20:37)
[2021-02-27] MEDS: Lidocaine PATCH 5% PATCH TRANSDERM SCH (12:37)
[2021-02-27] MEDS: Vitamin THERAPEUTIC TAB PO SCH (12:41)
[2021-02-27] MEDS: Lidocaine Patch REMOVE NOTE PATCH OFF SCH (20:12)
[2021-02-27] MEDS: Senna TAB 8.6 mg TAB PO SCH (20:12)
[2021-02-28] MEDS: Vitamin THERAPEUTIC TAB PO SCH (09:45)
[2021-02-28] MEDS: Lidocaine PATCH 5% PATCH TRANSDERM SCH (09:52)
[2021-02-28] MEDS: Senna TAB 8.6 mg TAB PO SCH (21:38)
[2021-02-28] MEDS: Lidocaine Patch REMOVE NOTE PATCH OFF SCH (21:45)
[2021-03-01] MEDS: Lidocaine PATCH 5% PATCH TRANSDERM SCH (10:40)
[2021-03-01] MEDS: Vitamin THERAPEUTIC TAB PO SCH (10:41)
[2021-03-01] MEDS: Senna TAB 8.6 mg TAB PO SCH (20:00)
[2021-03-01] MEDS: Lidocaine Patch REMOVE NOTE PATCH OFF SCH (20:00)
[2021-03-02] MEDS: Vitamin THERAPEUTIC TAB PO SCH (08:08)
[2021-03-02] MEDS: Lidocaine PATCH 5% PATCH TRANSDERM SCH (08:09)
[2021-03-02] MEDS: Senna TAB 8.6 mg TAB PO SCH (20:24)
[2021-03-02] MEDS: Lidocaine Patch REMOVE NOTE PATCH OFF SCH (20:26)
[2021-03-03] MEDS: Vitamin THERAPEUTIC TAB PO SCH (08:44)
[2021-03-03] MEDS: Lidocaine PATCH 5% PATCH TRANSDERM SCH (08:46)
[2021-03-03] MEDS: Senna TAB 8.6 mg TAB PO SCH (20:25)
[2021-03-03] MEDS: Lidocaine Patch REMOVE NOTE PATCH OFF SCH (20:59)
[2021-03-04] MEDS: Vitamin THERAPEUTIC TAB PO SCH (09:09)
[2021-03-04] MEDS: Lidocaine PATCH 5% PATCH TRANSDERM SCH (09:10)
[2021-03-04] MEDS: Senna TAB 8.6 mg TAB PO SCH (21:18)
[2021-03-04] MEDS: Lidocaine Patch REMOVE NOTE PATCH OFF SCH (21:22)
[2021-03-05] MEDS: Vitamin THERAPEUTIC TAB PO SCH (07:56)
[2021-03-05] MEDS: Lidocaine PATCH 5% PATCH TRANSDERM SCH (07:59)
[2021-03-05] MEDS: Senna TAB 8.6 mg TAB PO SCH (21:59)
[2021-03-05] MEDS: Lidocaine Patch REMOVE NOTE PATCH OFF SCH (22:02)
[2021-03-06] MEDS: Vitamin THERAPEUTIC TAB PO SCH (08:11)
[2021-03-06] MEDS: Lidocaine PATCH 5% PATCH TRANSDERM SCH (08:11)
[2021-03-06] MEDS ORDERED: Morphine ORAL.SOLN 10 mg 2 mg/ml UDC 5 ml (10 mg) PO ONE (15:42)
[2021-03-06] MEDS: Senna TAB 8.6 mg TAB PO SCH ×2 (22:19→22:22)
[2021-03-06] MEDS: Lidocaine Patch REMOVE NOTE PATCH OFF SCH (22:23)
[2021-03-07] MEDS: Vitamin THERAPEUTIC TAB PO SCH (08:57)
[2021-03-07] MEDS: Lidocaine PATCH 5% PATCH TRANSDERM SCH (09:01)
[2021-03-07] MEDS: Lidocaine Patch REMOVE NOTE PATCH OFF SCH (19:46)
[2021-03-07] MEDS: Senna TAB 8.6 mg TAB PO SCH (19:47)
[2021-03-08] MEDS: Vitamin THERAPEUTIC TAB PO SCH (09:24)
[2021-03-08] MEDS: Lidocaine PATCH 5% PATCH TRANSDERM SCH (09:25)
[2021-03-08] MEDS: Senna TAB 8.6 mg TAB PO SCH (20:47)
[2021-03-08] MEDS: Lidocaine Patch REMOVE NOTE PATCH OFF SCH (21:52)
[2021-03-09] MEDS: Lidocaine PATCH 5% PATCH TRANSDERM SCH (10:13)
[2021-03-09] MEDS: Vitamin THERAPEUTIC TAB PO SCH (10:14)
[2021-03-09] MEDS: Senna TAB 8.6 mg TAB PO SCH (19:38)
[2021-03-09] MEDS: Lidocaine Patch REMOVE NOTE PATCH OFF SCH (19:38)
[2021-03-10] MEDS: Lidocaine PATCH 5% PATCH TRANSDERM SCH (10:39)
[2021-03-10] MEDS: Vitamin THERAPEUTIC TAB PO SCH (10:39)
[2021-03-10] MEDS: Lidocaine Patch REMOVE NOTE PATCH OFF SCH (21:34)
[2021-03-10] MEDS: Senna TAB 8.6 mg TAB PO SCH (21:35)
[2021-03-11] MEDS: Vitamin THERAPEUTIC TAB PO SCH (08:55)
[2021-03-11] MEDS: Lidocaine PATCH 5% PATCH TRANSDERM SCH (09:02)
[2021-03-11] MEDS: Senna TAB 8.6 mg TAB PO SCH (20:42)
[2021-03-11] MEDS: Lidocaine Patch REMOVE NOTE PATCH OFF SCH (20:43)
[2021-03-12] MEDS: Vitamin THERAPEUTIC TAB PO SCH (07:18)
[2021-03-12] MEDS: Lidocaine PATCH 5% PATCH TRANSDERM SCH (07:18)
[2021-03-12] MEDS: Senna TAB 8.6 mg TAB PO SCH (21:55)
[2021-03-12] MEDS: Lidocaine Patch REMOVE NOTE PATCH OFF SCH (22:00)
[2021-03-13] MEDS: Lidocaine PATCH 5% PATCH TRANSDERM SCH (10:26)
[2021-03-13] MEDS: Vitamin THERAPEUTIC TAB PO SCH (10:28)
[2021-03-13] MEDS: Lidocaine Patch REMOVE NOTE PATCH OFF SCH (23:05)
[2021-03-13] MEDS: Senna TAB 8.6 mg TAB PO SCH (23:05)
[2021-03-14] MEDS: Vitamin THERAPEUTIC TAB PO SCH (10:53)
[2021-03-14] MEDS: Lidocaine PATCH 5% PATCH TRANSDERM SCH (10:53)
[2021-03-14 17:42] LABS: Urine Appearance Cloudy; Urine Bilirubin Negative (Negative); Urine Blood 2+ (Negative); Urine Color Amber; Urine Glucose Negative (Negative); Urine Ketones Negative (Negative); Urine Nitrite Negative (Negative); Urine Protein Negative (Negative); Urine Urobilinogen Negative (Negative)
[2021-03-14 17:46] LABS: Urine Bacteria 1+ (Absent); Urine Red Blood Cell 3+(>10/hpf) (Absent); Urine Squamous Epithelial Cell Present (Absent); Urine White Blood Cell 3+(>20/hpf) (Absent)
[2021-03-14] MEDS ORDERED: cefTRIAXone 1 gm/50 mL NS BAG 1 GM/50 ML BAG IVPB SCH (20:00)
[2021-03-14] MEDS: Senna TAB 8.6 mg TAB PO SCH (20:59)
[2021-03-14] MEDS: Lidocaine Patch REMOVE NOTE PATCH OFF SCH (21:00)
[2021-03-15] MEDS: Lidocaine PATCH 5% PATCH TRANSDERM SCH (10:25)
[2021-03-15] MEDS: Vitamin THERAPEUTIC TAB PO SCH (10:25)
[2021-03-15] MEDS: Lidocaine Patch REMOVE NOTE PATCH OFF SCH (21:23)
[2021-03-15] MEDS: Senna TAB 8.6 mg TAB PO SCH (21:24)
[2021-03-16] MEDS: Vitamin THERAPEUTIC TAB PO SCH (09:12)
[2021-03-16] MEDS: Lidocaine PATCH 5% PATCH TRANSDERM SCH (11:34)
[2021-03-16] MEDS: Senna TAB 8.6 mg TAB PO SCH (20:37)
[2021-03-16] MEDS: Lidocaine Patch REMOVE NOTE PATCH OFF SCH (20:40)
[2021-03-16] MEDS: Nicotine PATCH 7 MG/24 HR PATCH TRANSDERM SCH (23:00)
[2021-03-17] MEDS: Vitamin THERAPEUTIC TAB PO SCH (09:39)
[2021-03-17] MEDS: Nicotine PATCH 7 MG/24 HR PATCH TRANSDERM SCH (09:40)
[2021-03-17] MEDS: Lidocaine PATCH 5% PATCH TRANSDERM SCH (09:40)
[2021-03-17] MEDS: Lidocaine Patch REMOVE NOTE PATCH OFF SCH (20:40)
[2021-03-18] MEDS: Vitamin THERAPEUTIC TAB PO SCH (10:13)
[2021-03-18] MEDS: Lidocaine PATCH 5% PATCH TRANSDERM SCH (10:15)
[2021-03-18] MEDS: Nicotine PATCH 7 MG/24 HR PATCH TRANSDERM SCH (10:16)
[2021-03-18] MEDS: Senna TAB 8.6 mg TAB PO SCH (20:01)
[2021-03-18] MEDS: Lidocaine Patch REMOVE NOTE PATCH OFF SCH (20:13)
[2021-03-19] MEDS: Lidocaine PATCH 5% PATCH TRANSDERM SCH (08:44)
[2021-03-19] MEDS: Vitamin THERAPEUTIC TAB PO SCH (08:45)
[2021-03-19] MEDS: Nicotine PATCH 7 MG/24 HR PATCH TRANSDERM SCH (08:46)
[2021-03-19] MEDS: Lidocaine Patch REMOVE NOTE PATCH OFF SCH (20:12)
[2021-03-20] MEDS: Lidocaine PATCH 5% PATCH TRANSDERM SCH (10:01)
[2021-03-20] MEDS: Nicotine PATCH 7 MG/24 HR PATCH TRANSDERM SCH (10:01)
[2021-03-20] MEDS: Vitamin THERAPEUTIC TAB PO SCH (10:03)
[2021-03-20] MEDS: Lidocaine Patch REMOVE NOTE PATCH OFF SCH (21:30)
[2021-03-21] MEDS: Vitamin THERAPEUTIC TAB PO SCH (08:26)
[2021-03-21] MEDS: Lidocaine PATCH 5% PATCH TRANSDERM SCH (08:26)
[2021-03-21] MEDS: Nicotine PATCH 7 MG/24 HR PATCH TRANSDERM SCH (08:27)
[2021-03-21] MEDS: Senna TAB 8.6 mg TAB PO SCH (21:50)
[2021-03-21] MEDS: Lidocaine Patch REMOVE NOTE PATCH OFF SCH (22:29)
[2021-03-22] MEDS: Vitamin THERAPEUTIC TAB PO SCH (08:23)
[2021-03-22] MEDS: Nicotine PATCH 7 MG/24 HR PATCH TRANSDERM SCH (08:25)
[2021-03-22] MEDS: Lidocaine PATCH 5% PATCH TRANSDERM SCH (08:32)
[2021-03-22] MEDS: Lidocaine Patch REMOVE NOTE PATCH OFF SCH (20:47)
[2021-03-23 07:00] LABS: ABS Basophils 0.1 10^3/ul (0-0.2); ABS Eosinophils 0.1 10^3/ul (0-0.6); ABS Lymphocytes 1.8 10^3/ul (1.0-4.8); ABS Monocytes 0.6 10^3/ul (0-0.8); ABS Neutrophils 2.2 10^3/ul (1.5-7.7); Eosinophil % 3.1 %; Hematocrit 38 % (42-52); Hemoglobin 12.3 g/dL (14.0-18.0); Lymphocyte % 37.3 %; Mean Corpuscular HGB Conc 32 g/dL (31-36); Mean Corpuscular Hemoglobin 27 pg (27-31); Mean Corpuscular Volume 84 fL (80-94); Mean Platelet Volume 8.3 fL (7.4-10.4); Platelet Count 158 10^3/uL (150-450); Red Blood Count 4.57 10^6 /uL (4.18-5.48); Red Cell Distribution Width 18 % (10-15); White Blood Count 4.7 10^3/uL (3.5-10.8)
[2021-03-23] MEDS: Lidocaine PATCH 5% PATCH TRANSDERM SCH (09:56)
[2021-03-23] MEDS: Vitamin THERAPEUTIC TAB PO SCH (09:56)
[2021-03-23] MEDS: Nicotine PATCH 7 MG/24 HR PATCH TRANSDERM SCH (09:57)
[2021-03-23] MEDS ORDERED: Saline NASAL DROPS 0.65% BTL BOTH NARES PRN (10:31)
[2021-03-23 12:41] LABS: Influenza A Molecular Negative (Negative); Influenza B Molecular Negative (Negative)
[2021-03-23] MEDS: Senna TAB 8.6 mg TAB PO SCH (20:07)
[2021-03-23] MEDS: Lidocaine Patch REMOVE NOTE PATCH OFF SCH (21:31)
[2021-03-24 06:54] LABS: Magnesium 1.8 mg/dL (1.9-2.7); Potassium 3.9 mmol/L (3.5-5.0)
[2021-03-24] MEDS: Vitamin THERAPEUTIC TAB PO SCH (09:13)
[2021-03-24] MEDS: Lidocaine PATCH 5% PATCH TRANSDERM SCH (09:17)
[2021-03-24] MEDS: Nicotine PATCH 7 MG/24 HR PATCH TRANSDERM SCH (09:18)
[2021-03-24] MEDS: Lidocaine Patch REMOVE NOTE PATCH OFF SCH (22:23)
[2021-03-25] MEDS: Lidocaine PATCH 5% PATCH TRANSDERM SCH (09:35)
[2021-03-25] MEDS: Nicotine PATCH 7 MG/24 HR PATCH TRANSDERM SCH (09:35)
[2021-03-25] MEDS: Vitamin THERAPEUTIC TAB PO SCH (09:36)
[2021-03-25] MEDS: Senna TAB 8.6 mg TAB PO SCH (20:02)
[2021-03-25] MEDS: Lidocaine Patch REMOVE NOTE PATCH OFF SCH (20:06)
[2021-03-26] MEDS: Vitamin THERAPEUTIC TAB PO SCH (09:46)
[2021-03-26] MEDS: Lidocaine PATCH 5% PATCH TRANSDERM SCH (09:47)
[2021-03-26] MEDS: Nicotine PATCH 7 MG/24 HR PATCH TRANSDERM SCH (09:48)
[2021-03-26] MEDS: Lidocaine Patch REMOVE NOTE PATCH OFF SCH (21:57)
[2021-03-27] MEDS: Vitamin THERAPEUTIC TAB PO SCH (10:53)
[2021-03-27] MEDS: Nicotine PATCH 7 MG/24 HR PATCH TRANSDERM SCH (10:56)
[2021-03-27] MEDS: Lidocaine PATCH 5% PATCH TRANSDERM SCH (10:58)
[2021-03-27] MEDS: Lidocaine Patch REMOVE NOTE PATCH OFF SCH (21:23)
[2021-03-28] MEDS: Vitamin THERAPEUTIC TAB PO SCH (10:58)
[2021-03-28] MEDS: Nicotine PATCH 7 MG/24 HR PATCH TRANSDERM SCH (10:59)
[2021-03-28] MEDS: Lidocaine PATCH 5% PATCH TRANSDERM SCH (11:00)
[2021-03-28] MEDS: Senna TAB 8.6 mg TAB PO SCH (20:54)
[2021-03-28] MEDS: Lidocaine Patch REMOVE NOTE PATCH OFF SCH (20:55)
[2021-03-29] MEDS: Vitamin THERAPEUTIC TAB PO SCH (09:41)
[2021-03-29] MEDS: Nicotine PATCH 7 MG/24 HR PATCH TRANSDERM SCH (09:42)
[2021-03-29] MEDS: Lidocaine PATCH 5% PATCH TRANSDERM SCH (09:43)
[2021-03-29] MEDS: Lidocaine Patch REMOVE NOTE PATCH OFF SCH (20:43)
[2021-03-29 22:41] VITALS: BP 141/90
[2021-03-30] MEDS: Vitamin THERAPEUTIC TAB PO SCH (10:25)
[2021-03-30] MEDS: Lidocaine PATCH 5% PATCH TRANSDERM SCH (10:25)
[2021-03-30] MEDS: Nicotine PATCH 7 MG/24 HR PATCH TRANSDERM SCH (10:25)
== END 2021-03-30 16:15 | disposition left against medical advice (07) | DRG 534 ==
LOC: SUATTDRO 10:55 → SSU 10:55 → MEDTELE 01-30 20:48 → MED 02-23 04:37 → MCHPEDS 02-25 15:15 → MED 03-03 15:51 → PMRU 03-07 16:51 → MED 03-23 14:28 → UNDODISIN 03-25 15:39
PROVIDERS: ADMIT Internal Medicine; ATTEND Internal Medicine

== ENCOUNTER 2022-07-14 08:25 | Inpatient (IN) ==
[2022-07-14] MEDS ORDERED: Lactated Ringers 1000 ml BAG 1,000 ML IV ONE (09:05)
[2022-07-14 09:48] LABS: ABS Eosinophils 0.1 10^3/ul (0-0.6); ABS Lymphocytes 0.9 10^3/ul (1.0-4.8); ABS Monocytes 0.5 10^3/ul (0-0.8); ABS Neutrophils 5.7 10^3/ul (1.5-7.7); Eosinophil % 0.9 %; Hematocrit 43 % (42-52); Lymphocyte % 12.1 %; Mean Corpuscular HGB Conc 32 g/dL (31-36); Mean Corpuscular Hemoglobin 29 pg (27-31); Mean Corpuscular Volume 90 fL (80-94); Mean Platelet Volume 9.2 fL (7.4-10.4); Nucleated Red Blood Cells % 0.1; Platelet Count 108 10^3/uL (150-450); Red Blood Count 4.83 10^6 /uL (4.18-5.48); Red Cell Distribution Width 17 % (10-15); White Blood Count 7.2 10^3/uL (3.5-10.8)
[2022-07-14 09:55] LABS: Urine Appearance Clear; Urine Bilirubin Negative (Negative); Urine Blood Negative (Negative); Urine Color Straw; Urine Glucose Negative (Negative); Urine Ketones Negative (Negative); Urine Nitrite Negative (Negative); Urine Protein 2+(100 mg/dL) (Negative); Urine Specific Gravity 1.009 (1.002-1.030); Urine Urobilinogen Negative (Negative)
[2022-07-14 10:06] LABS: Urine Bacteria Absent (Absent); Urine Red Blood Cell Trace(0-2/hpf) (Absent); Urine Squamous Epithelial Cell Present (Absent); Urine White Blood Cell Trace(0-5/hpf) (Absent)
[2022-07-14 10:17] LABS: Activated Partial Thrombo Time 39.3 seconds (26.0-38.0); INR 1.39 (0.88-1.18)
[2022-07-14 10:18] LABS: ALT 7 U/L (7-52); AST 14 U/L (13-39); Albumin 4.1 g/dL (3.2-5.2); Albumin/Globulin Ratio 1.6 (1-3); Alkaline Phosphatase 101 U/L (35-149); Anion Gap 5 mmol/L (2-11); Blood Urea Nitrogen 24 mg/dL (6-24); C Reactive Protein 5.74 mg/L (<8.01); CO2 Carbon Dioxide 28 mmol/L (22-32); Chloride 102 mmol/L (101-111); Creatinine, Serum 1.58 mg/dL (0.67-1.17); Globulin 2.5 g/dL (2-4); Glucose 88 mg/dL (70-100); Magnesium 1.7 mg/dL (1.9-2.7); Potassium 4.7 mmol/L (3.5-5.0); Sodium 135 mmol/L (135-145); Total Protein 6.6 g/dL (6.4-8.9); eGFR CKD-EPI 46.8 (>60)
[2022-07-14] MEDS ORDERED: LORazepam 2 mg VIAL 1 ml IV PUSH ONE ×2 (10:26→12:18)
[2022-07-14] MEDS ORDERED: Lorazepam PYXIS KEY PRN ×2 (10:26→12:18)
[2022-07-14] MEDS ORDERED: Iodixanol (CONTRAST) 320 MG/ML 100 ML SDV IV ONE (10:45)
[2022-07-14] MEDS ORDERED: Thiamine 100 MG/ML 2 ml VIAL (200 mg) IM ONE ×2 (12:45→14:46)
[2022-07-14] MEDS: Multivitamins/Minerals TAB PO SCH (13:07)
[2022-07-14] MEDS ORDERED: Ondansetron 4 mg VIAL 2 MG/ML 2 ml VIAL IV PRN (13:28)
[2022-07-14] MEDS ORDERED: NS 0.9% 1000 ml BAG 1,000 ML IV SCH (13:30)
[2022-07-14 15:19] LABS: Alcohol, S < 13 mg/dL (<13); Uric Acid 5.2 mg/dL (4.4-7.6)
[2022-07-14 15:21] LABS: Vitamin B12 1054 pg/mL (180-914)
[2022-07-14 16:10] LABS: Folate > 20.00 ng/mL (5.90-24.80)
[2022-07-14 16:22] LABS: Creatine Kinase 138 U/L (10-223)
[2022-07-15] MEDS: Fluticasone NASAL SPRAY 50MCG 16 gm SPRAY BTL BOTH NARES SCH ×2 (00:12→09:27)
[2022-07-15] MEDS ORDERED: Lactated Ringers 1000 ml BAG 1,000 ML IV ONE (06:00)
[2022-07-15 06:42] LABS: ABS Eosinophils 0.1 10^3/ul (0-0.6); ABS Lymphocytes 0.7 10^3/ul (1.0-4.8); ABS Monocytes 0.5 10^3/ul (0-0.8); ABS Neutrophils 3.9 10^3/ul (1.5-7.7); Eosinophil % 1.1 %; Hematocrit 41 % (42-52); Hemoglobin 13.1 g/dL (14.0-18.0); Lymphocyte % 13.3 %; Mean Corpuscular HGB Conc 32 g/dL (31-36); Mean Corpuscular Hemoglobin 29 pg (27-31); Mean Corpuscular Volume 90 fL (80-94); Nucleated Red Blood Cells % 0.2; Red Blood Count 4.57 10^6 /uL (4.18-5.48); Red Cell Distribution Width 18 % (10-15); White Blood Count 5.2 10^3/uL (3.5-10.8)
[2022-07-15 07:32] LABS: Calcium 8.7 mg/dL (8.6-10.3); Creatinine, Serum 1.54 mg/dL (0.67-1.17); Magnesium 1.7 mg/dL (1.9-2.7); Phosphorus 2.5 mg/dL (2.5-5.0); Potassium 4.2 mmol/L (3.5-5.0); eGFR CKD-EPI 48.2 (>60)
[2022-07-15] MEDS ORDERED: Magnesium Sulfate 2 gm BAG 2 GM/50 ML BAG IVPB ONE (08:23)
[2022-07-15 09:12] LABS: Platelet Count 90 10^3/uL (150-450)
[2022-07-15] MEDS: Multivitamins/Minerals TAB PO SCH (09:28)
[2022-07-16] MEDS: Fluticasone NASAL SPRAY 50MCG 16 gm SPRAY BTL BOTH NARES SCH (09:06)
[2022-07-16] MEDS: Multivitamins/Minerals TAB PO SCH (09:07)
[2022-07-16 09:51] LABS: ABS Eosinophils 0.1 10^3/ul (0-0.6); ABS Lymphocytes 0.8 10^3/ul (1.0-4.8); ABS Monocytes 0.4 10^3/ul (0-0.8); ABS Neutrophils 3.2 10^3/ul (1.5-7.7); Eosinophil % 1.4 %; Hematocrit 44 % (42-52); Hemoglobin 13.9 g/dL (14.0-18.0); Lymphocyte % 17.1 %; Mean Corpuscular HGB Conc 32 g/dL (31-36); Mean Corpuscular Hemoglobin 29 pg (27-31); Mean Corpuscular Volume 91 fL (80-94); Mean Platelet Volume 9.3 fL (7.4-10.4); Nucleated Red Blood Cells % 0.3; Platelet Count 98 10^3/uL (150-450); Red Blood Count 4.82 10^6 /uL (4.18-5.48); Red Cell Distribution Width 18 % (10-15); White Blood Count 4.5 10^3/uL (3.5-10.8)
[2022-07-16 10:23] LABS: Calcium 9.1 mg/dL (8.6-10.3); Creatinine, Serum 1.81 mg/dL (0.67-1.17); Potassium 4.2 mmol/L (3.5-5.0); eGFR CKD-EPI 39.7 (>60)
[2022-07-16 10:26] VITALS: BP 131/91
[2022-07-16] MEDS ORDERED: Cefepime 2 GM in Dextrose 2 GM/50 ML BAG IV SCH (12:00)
== END 2022-07-16 14:55 | disposition home or self-care (01) | DRG 897 ==
LOC: ED 08:25 → EDHOLD 13:28 → SUATTDRO 13:28 → EDHOLD 16:32 → MED 16:44
PROVIDERS: ADMIT Internal Medicine; ATTEND Internal Medicine

== ENCOUNTER 2022-09-29 07:46 | Inpatient (IN) ==
[2022-09-29 09:13] LABS: ABS Basophils 0.1 10^3/uL (0.0-0.1); ABS Eosinophils 0.1 10^3/uL (0.0-0.5); ABS Lymphocytes 0.8 10^3/uL (1.0-4.8); ABS Monocytes 1.3 10^3/uL (0.0-1.1); ABS Neutrophils 11.3 10^3/uL (1.5-7.6); ABS Nucleated RBC 0.02 10^3/ul; Eosinophil % 0.4 %; Hematocrit 35.7 % (38-53); Hemoglobin 11.8 g/dL (13.2-16.3); Lymphocyte % 5.6 %; Mean Corpuscular Hemoglobin 29.3 pg (27-33); Mean Corpuscular Hgb Conc 32.9 g/dL (31-36); Mean Platelet Volume 9.7 fL (7.5-11.2); Nucleated Red Blood Cells % 0.2 /100 WBC (0.0-0.4); Platelet Count 192 10^3/uL (150-450); Red Blood Count 4.01 10^6/uL (4.06-5.63); Red Cell Distribution Width 17.3 % (12-17); White Blood Count 13.5 10^3/uL (3.6-10.2)
[2022-09-29 10:07] LABS: Albumin 3.1 g/dL (3.2-5.2); Albumin/Globulin Ratio 1.1 (1-3); Calcium 8.7 mg/dL (8.6-10.3); Globulin 2.7 g/dL (2-4); Potassium 3.6 mmol/L (3.5-5.0); Total Bilirubin 0.6 mg/dL (0.2-1.0); Total Protein 5.8 g/dL (6.4-8.9); eGFR CKD-EPI 35.2 (>60)
[2022-09-29 10:23] LABS: Urine Appearance Clear; Urine Bilirubin Negative (Negative); Urine Blood Negative (Negative); Urine Color Yellow; Urine Glucose Negative (Negative); Urine Ketones Negative (Negative); Urine Nitrite Negative (Negative); Urine Protein 2+(100 mg/dL) (Negative); Urine Specific Gravity 1.016 (1.002-1.030); Urine Urobilinogen Negative (Negative)
[2022-09-29 10:27] LABS: Urine Bacteria Absent (Absent); Urine Red Blood Cell Absent (Absent); Urine Squamous Epithelial Cell Present (Absent); Urine White Blood Cell Trace(0-5/hpf) (Absent)
[2022-09-29] MEDS ORDERED: Thiamine 100 MG/ML 2 ml VIAL (200 mg) IM ONE (14:32)
[2022-09-29] MEDS ORDERED: LORazepam 2 mg VIAL 1 ml IV PUSH ONE (15:46)
[2022-09-29] MEDS ORDERED: Lorazepam PYXIS KEY PRN (15:46)
[2022-09-29] MEDS: Multivitamins/Minerals TAB PO SCH (15:51)
[2022-09-29] MEDS ORDERED: Nicotine GUM 2MG FRUIT FLAVOR PO PRN (17:00)
[2022-09-29] MEDS ORDERED: LORazepam 2 mg VIAL 1 ml IV PUSH SCH (17:00)
[2022-09-29] MEDS ORDERED: Nicotine PATCH 14 MG/24 HR PATCH TRANSDERM SCH (17:00)
[2022-09-29 18:09] LABS: Uric Acid 5.5 mg/dL (4.4-7.6)
[2022-09-29] MEDS ORDERED: NS 0.9% w/ 20 Meq KCL 1000 ml 1,000 ML IV SCH (20:00)
[2022-09-29] MEDS ORDERED: Potassium Chloride LIQUID 20 MEQ/15 ML LIQUID PO ONE (20:56)
[2022-09-30 06:58] LABS: Calcium 8.6 mg/dL (8.6-10.3); Creatinine, Serum 1.92 mg/dL (0.67-1.17); Potassium 3.5 mmol/L (3.5-5.0)
[2022-09-30] MEDS: Nicotine PATCH 21 MG/24 HR PATCH TRANSDERM SCH (08:12)
[2022-09-30] MEDS: Multivitamins/Minerals TAB PO SCH (08:14)
[2022-09-30] MEDS: Polyethylene Glycol 3350 17 GM PACKET PO SCH (08:15)
[2022-09-30] MEDS ORDERED: NON FORMULARY MED (Multivitamin Tablet) PO SCH (09:00)
[2022-10-01 07:01] LABS: ABS Eosinophils 0.1 10^3/uL (0.0-0.5); ABS Lymphocytes 0.7 10^3/uL (1.0-4.8); ABS Monocytes 1.1 10^3/uL (0.0-1.1); ABS Neutrophils 10.8 10^3/uL (1.5-7.6); ABS Nucleated RBC 0.01 10^3/ul; Eosinophil % 0.4 %; Hemoglobin 11.4 g/dL (13.2-16.3); Lymphocyte % 5.2 %; Mean Corpuscular Hemoglobin 29.2 pg (27-33); Mean Corpuscular Hgb Conc 32.6 g/dL (31-36); Mean Corpuscular Volume 89.4 fL (80-97); Mean Platelet Volume 8.9 fL (7.5-11.2); Nucleated Red Blood Cells % 0.1 /100 WBC (0.0-0.4); Platelet Count 240 10^3/uL (150-450); Red Blood Count 3.92 10^6/uL (4.06-5.63); Red Cell Distribution Width 16.5 % (12-17); White Blood Count 12.6 10^3/uL (3.6-10.2)
[2022-10-01 07:34] LABS: Calcium 8.8 mg/dL (8.6-10.3); Creatinine, Serum 1.74 mg/dL (0.67-1.17); Potassium 3.4 mmol/L (3.5-5.0); eGFR CKD-EPI 41.7 (>60)
[2022-10-01] MEDS ORDERED: Albuterol HFA INHALER 8 gm MDI INH PRN (08:36)
[2022-10-01 08:44] LABS: Magnesium 1.6 mg/dL (1.9-2.7)
[2022-10-01] MEDS ORDERED: Magnesium Sulfate 2 gm BAG 2 GM/50 ML BAG IVPB ONE (08:44)
[2022-10-01] MEDS ORDERED: KCL 20 MEQ/100 ML IVPREMIX 20 MEQ/100 ML BAG IV ONE (08:45)
[2022-10-01] MEDS: Multivitamins/Minerals TAB PO SCH (10:21)
[2022-10-01] MEDS: Nicotine PATCH 21 MG/24 HR PATCH TRANSDERM SCH (10:22)
[2022-10-01] MEDS: Polyethylene Glycol 3350 17 GM PACKET PO SCH (10:26)
[2022-10-02 06:31] LABS: ABS Basophils 0.1 10^3/uL (0.0-0.1); ABS Eosinophils 0.1 10^3/uL (0.0-0.5); ABS Lymphocytes 0.7 10^3/uL (1.0-4.8); ABS Nucleated RBC 0.01 10^3/ul; Eosinophil % 0.6 %; Hematocrit 35.4 % (38-53); Hemoglobin 11.6 g/dL (13.2-16.3); Lymphocyte % 5.3 %; Mean Corpuscular Hemoglobin 29.2 pg (27-33); Mean Corpuscular Hgb Conc 32.7 g/dL (31-36); Mean Corpuscular Volume 89.3 fL (80-97); Mean Platelet Volume 9.1 fL (7.5-11.2); Nucleated Red Blood Cells % 0.1 /100 WBC (0.0-0.4); Platelet Count 246 10^3/uL (150-450); Red Blood Count 3.96 10^6/uL (4.06-5.63); Red Cell Distribution Width 16.7 % (12-17); White Blood Count 13.9 10^3/uL (3.6-10.2)
[2022-10-02 07:03] LABS: Anion Gap 7 mmol/L (2-16); CO2 Carbon Dioxide 23 mmol/L (22-32); Calcium 8.5 mg/dL (8.6-10.3); Chloride 106 mmol/L (101-111); Magnesium 1.8 mg/dL (1.9-2.7); Potassium 3.6 mmol/L (3.5-5.0); Sodium 136 mmol/L (135-145)
[2022-10-02 07:09] LABS: Blood Urea Nitrogen 34 mg/dL (6-24); Creatinine, Serum 1.93 mg/dL (0.67-1.17); Glucose 118 mg/dL (70-100); Phosphorus 2.5 mg/dL (2.5-5.0); eGFR CKD-EPI 36.8 (>60)
[2022-10-02 08:32] LABS: Folate > 20.00 ng/mL (5.90-24.80)
[2022-10-02 08:33] LABS: Vitamin B12 > 1450 pg/mL (180-914)
[2022-10-02] MEDS: Multivitamins/Minerals TAB PO SCH (09:26)
[2022-10-02] MEDS: Nicotine PATCH 21 MG/24 HR PATCH TRANSDERM SCH (09:27)
[2022-10-02] MEDS: Polyethylene Glycol 3350 17 GM PACKET PO SCH (09:28)
[2022-10-03] MEDS: Multivitamins/Minerals TAB PO SCH (08:45)
[2022-10-03] MEDS: Nicotine PATCH 21 MG/24 HR PATCH TRANSDERM SCH (08:48)
[2022-10-03] MEDS: Polyethylene Glycol 3350 17 GM PACKET PO SCH (08:53)
[2022-10-04] MEDS: Lidocaine PATCH 5% PATCH TRANSDERM SCH (04:38)
[2022-10-04] MEDS: Multivitamins/Minerals TAB PO SCH (10:16)
[2022-10-04] MEDS: Nicotine PATCH 21 MG/24 HR PATCH TRANSDERM SCH (10:22)
[2022-10-04] MEDS: Polyethylene Glycol 3350 17 GM PACKET PO SCH (10:25)
[2022-10-05] MEDS: Lidocaine PATCH 5% PATCH TRANSDERM SCH (07:49)
[2022-10-05] MEDS: Nicotine PATCH 21 MG/24 HR PATCH TRANSDERM SCH (07:49)
[2022-10-05] MEDS: Multivitamins/Minerals TAB PO SCH (07:50)
[2022-10-05] MEDS: Polyethylene Glycol 3350 17 GM PACKET PO SCH (08:21)
[2022-10-05 09:16] LABS: ABS Basophils 0.2 10^3/uL (0.0-0.1); ABS Eosinophils 0.1 10^3/uL (0.0-0.5); ABS Monocytes 0.5 10^3/uL (0.0-1.1); ABS Neutrophils 12.3 10^3/uL (1.5-7.6); ABS Nucleated RBC 0.02 10^3/ul; Eosinophil % 0.6 %; Hematocrit 37.8 % (38-53); Hemoglobin 12.1 g/dL (13.2-16.3); Lymphocyte % 7.2 %; Mean Corpuscular Hemoglobin 28.5 pg (27-33); Mean Corpuscular Hgb Conc 32.1 g/dL (31-36); Mean Corpuscular Volume 88.8 fL (80-97); Mean Platelet Volume 9.3 fL (7.5-11.2); Nucleated Red Blood Cells % 0.1 /100 WBC (0.0-0.4); Platelet Count 371 10^3/uL (150-450); Red Blood Count 4.25 10^6/uL (4.06-5.63); Red Cell Distribution Width 16.8 % (12-17); White Blood Count 14.1 10^3/uL (3.6-10.2)
[2022-10-05 09:30] LABS: Calcium 9.1 mg/dL (8.6-10.3); Creatinine, Serum 1.89 mg/dL (0.67-1.17); Potassium 3.6 mmol/L (3.5-5.0); eGFR CKD-EPI 37.7 (>60)
[2022-10-05 15:19] VITALS: BP 94/49
== END 2022-10-05 15:09 | disposition swing bed (61) | DRG 92 ==
LOC: ED 07:46 → EDHOLD 07:46 → MEDTELE 20:20 → SUATTDRO 10-01 16:53
PROVIDERS: ADMIT Internal Medicine; ATTEND Internal Medicine

== ENCOUNTER 2022-10-05 15:14 | Inpatient (IN) ==
[2022-10-05] MEDS ORDERED: Nicotine GUM 2MG FRUIT FLAVOR PO PRN (15:53)
[2022-10-05] MEDS ORDERED: Albuterol HFA INHALER 8 gm MDI INH PRN (15:53)
[2022-10-06] MEDS: Multivitamins/Minerals TAB PO SCH (09:27)
[2022-10-06] MEDS: Nicotine PATCH 21 MG/24 HR PATCH TRANSDERM SCH (09:28)
[2022-10-06] MEDS ORDERED: Calcium Carb (TUMS) 500 mg CHEW TAB PO ONE (11:53)
[2022-10-07] MEDS: Nicotine PATCH 21 MG/24 HR PATCH TRANSDERM SCH (09:44)
[2022-10-07] MEDS: Multivitamins/Minerals TAB PO SCH (09:46)
[2022-10-08] MEDS: Nicotine PATCH 21 MG/24 HR PATCH TRANSDERM SCH (09:42)
[2022-10-08] MEDS: Multivitamins/Minerals TAB PO SCH (09:46)
[2022-10-09] MEDS: Nicotine PATCH 21 MG/24 HR PATCH TRANSDERM SCH (10:41)
[2022-10-09] MEDS: Multivitamins/Minerals TAB PO SCH (10:45)
[2022-10-09 11:01] VITALS: BP 102/70
== END 2022-10-09 13:05 | DRG 566 ==
LOC: SUATTDRO 15:55 → MEDTELE 15:55
PROVIDERS: ADMIT Internal Medicine; ATTEND Internal Medicine

== ENCOUNTER 2023-06-01 19:06 | Inpatient (IN) ==
[2023-06-01] MEDS: Lactated Ringers 1000 ml BAG 1,000 ML IV ONE ×3 (19:20→20:39)
[2023-06-01 19:34] LABS: Hematocrit 38.4 % (38-53); Hemoglobin 12.3 g/dL (13.2-16.3); Mean Corpuscular Hemoglobin 28.1 pg (27-33); Mean Corpuscular Volume 87.7 fL (80-97); Mean Platelet Volume 9.3 fL (7.5-11.2); Platelet Count 276 10^3/uL (150-450); Red Blood Count 4.38 10^6/uL (4.06-5.63); Red Cell Distribution Width 18.6 % (12-17); White Blood Count 19.8 10^3/uL (3.6-10.2)
[2023-06-01 19:51] LABS: INR 1.38 (0.83-1.13)
[2023-06-01 19:52] LABS: Albumin 3.1 g/dL (3.2-5.2); Albumin/Globulin Ratio 0.9 (1-3); C Reactive Protein 179.86 mg/L (<8.01); Calcium 8.8 mg/dL (8.6-10.3); Creatinine, Serum 2.38 mg/dL (0.67-1.17); Globulin 3.6 g/dL (2-4); Potassium 4.3 mmol/L (3.5-5.0); Total Protein 6.7 g/dL (6.4-8.9); eGFR CKD-EPI 28.6 (>60)
[2023-06-01] MEDS: Piperacillin/Tazobac 3.375 BAG 3.375 GM/100 ML BAG IV ONE (19:59)
[2023-06-01 20:33] LABS: ABS Basophils 0.1 10^3/uL (0.0-0.1); ABS Lymphocytes 0.4 10^3/uL (1.0-4.8); ABS Monocytes 1.7 10^3/uL (0.0-1.1); ABS Neutrophils 17.6 10^3/uL (1.5-7.6); Lymphocyte % 2.2 %
[2023-06-01] MEDS: Acetaminophen IV 1 GM/100ML 1,000 MG/100 ML BAG IV ONE (20:39)
[2023-06-01 21:04] LABS: High Sensitivity Troponin 1 Hr 36 pg/mL (<20)
[2023-06-02] MEDS ORDERED: Zosyn per Pharmacy NOTE FOLLOW UP SCH (02:00)
[2023-06-02] MEDS: Lactated Ringers 1000 ml BAG 1,000 ML IV ONE ×2 (02:03→06:18)
[2023-06-02] MEDS ORDERED: Vancomycin 1,750 MG in NS 0.9% 500 ml BAG 500 ML IVPB ONE (03:00)
[2023-06-02] MEDS: Vancomycin 1,750 MG in NS 0.9% 500 ml BAG 500 ML IVPB ONE (04:03)
[2023-06-02] MEDS: guaiFENesin 100 mg/5 ml LIQ unit dose cup PO PRN (04:14)
[2023-06-02] MEDS ORDERED: Vancomycin per Pharmacy 1 EA NOTE FOLLOW UP PRN (04:56)
[2023-06-02 05:37] LABS: Urine Appearance Clear; Urine Bilirubin Negative (Negative); Urine Blood 1+ (Negative); Urine Color Yellow; Urine Glucose Negative (Negative); Urine Ketones Negative (Negative); Urine Nitrite Negative (Negative); Urine Protein 1+(30 mg/dL) (Negative); Urine Specific Gravity 1.018 (1.002-1.030); Urine Urobilinogen Negative (Negative)
[2023-06-02 05:42] LABS: Urine Bacteria Absent (Absent); Urine Red Blood Cell Trace(0-2/hpf) (Absent); Urine Squamous Epithelial Cell Present (Absent); Urine White Blood Cell Trace(0-5/hpf) (Absent)
[2023-06-02] MEDS: ZOSYN 3.375 GM x ONE DOSE over 30 miuntes IV (05:42)
[2023-06-02] MEDS: ZOSYN 3.375 GM Q8H per EXTENDED INFUSION IV SCH ×3 (05:47→22:59)
[2023-06-02] MEDS ORDERED: Enoxaparin 30 MG/0.3 ML SYR SUBCUT SCH (09:00)
[2023-06-02] MEDS ORDERED: Vancomycin per Pharmacy 1 EA NOTE FOLLOW UP SCH (11:00)
[2023-06-02] MEDS: Albuterol 2.5mg/3 ml (0.083%) NEB.SOLN INH PRN (17:35)
[2023-06-03] MEDS: Nicotine Lozenge mini 2 MG LOZNG.MINI MT PRN (00:51)
[2023-06-03] MEDS: Vancomycin 1,250 MG in NS 0.9% 250 ml 250 ML IVPB SCH (06:07)
[2023-06-03 08:34] LABS: ABS Lymphocytes 0.5 10^3/uL (1.0-4.8); ABS Monocytes 0.8 10^3/uL (0.0-1.1); ABS Neutrophils 12.1 10^3/uL (1.5-7.6); Eosinophil % 0.1 %; Hematocrit 33.2 % (38-53); Hemoglobin 10.6 g/dL (13.2-16.3); Lymphocyte % 3.9 %; Mean Corpuscular Hemoglobin 27.8 pg (27-33); Mean Corpuscular Hgb Conc 31.8 g/dL (31-36); Mean Corpuscular Volume 87.4 fL (80-97); Platelet Count 205 10^3/uL (150-450); Red Cell Distribution Width 18.4 % (12-17); White Blood Count 13.5 10^3/uL (3.6-10.2)
[2023-06-03 08:51] LABS: Calcium 8.1 mg/dL (8.6-10.3); Creatinine, Serum 1.8 mg/dL (0.67-1.17); Magnesium 1.5 mg/dL (1.9-2.7); Phosphorus 3.2 mg/dL (2.5-5.0); Potassium 4.2 mmol/L (3.5-5.0)
[2023-06-03 09:25] LABS: Body Fluid Appearance Bloody; Body Fluid Color Red; Body Fluid Source Synovial Fluid
[2023-06-03] MEDS: Nicotine PATCH 7 MG/24 HR PATCH TRANSDERM SCH (09:26)
[2023-06-03] MEDS: Lactated Ringers 1000 ml BAG 1,000 ML IV SCH (09:39)
[2023-06-03] MEDS: Magnesium Sulf 4 GM/100 ML IV 4,000 MG/100 ML BAG IVPB ONE (09:49)
[2023-06-03 10:03] LABS: Body Fluid Total Nucleated 6143 /mcL
[2023-06-03 11:02] LABS: Body Fluid Mono 5 %; Body Fluid NRBC 0; Body Fluid Other Cells 1
[2023-06-03 11:03] LABS: Body Fluid Total Cells Counted 200
[2023-06-04 06:04] LABS: ABS Eosinophils 0.1 10^3/uL (0.0-0.5); ABS Lymphocytes 0.9 10^3/uL (1.0-4.8); ABS Monocytes 0.9 10^3/uL (0.0-1.1); ABS Neutrophils 10.5 10^3/uL (1.5-7.6); ABS Nucleated RBC 0.02 10^3/ul; Eosinophil % 0.5 %; Hematocrit 31.7 % (38-53); Hemoglobin 10.2 g/dL (13.2-16.3); Lymphocyte % 7.4 %; Mean Corpuscular Hemoglobin 28.2 pg (27-33); Nucleated Red Blood Cells % 0.2 %/100WBC (0.0-0.8); Platelet Count 234 10^3/uL (150-450); Red Cell Distribution Width 18.8 % (12-17); White Blood Count 12.4 10^3/uL (3.6-10.2)
[2023-06-04 06:23] LABS: Calcium 8.3 mg/dL (8.6-10.3); Creatinine, Serum 1.69 mg/dL (0.67-1.17); Magnesium 2.1 mg/dL (1.9-2.7); Potassium 3.9 mmol/L (3.5-5.0); eGFR CKD-EPI 42.9 (>60)
[2023-06-05 05:28] LABS: Hematocrit 32.9 % (38-53); Hemoglobin 10.5 g/dL (13.2-16.3); Mean Corpuscular Hemoglobin 28.1 pg (27-33); Mean Corpuscular Hgb Conc 31.8 g/dL (31-36); Mean Corpuscular Volume 88.5 fL (80-97); Mean Platelet Volume 8.8 fL (7.5-11.2); Platelet Count 242 10^3/uL (150-450); Red Blood Count 3.72 10^6/uL (4.06-5.63); Red Cell Distribution Width 18.5 % (12-17); White Blood Count 12.4 10^3/uL (3.6-10.2)
[2023-06-05 05:44] LABS: Calcium 8.8 mg/dL (8.6-10.3); Creatinine, Serum 1.7 mg/dL (0.67-1.17); Magnesium 1.9 mg/dL (1.9-2.7); Potassium 4.1 mmol/L (3.5-5.0); eGFR CKD-EPI 42.6 (>60)
[2023-06-05] MEDS: Vancomycin Trough Check NOTE FOLLOW UP ONE (06:13)
[2023-06-05] MEDS: fentaNYL 100 mcg/2 ml 50 MCG/ML VIAL ONE (10:27)
[2023-06-06 08:20] LABS: Hematocrit 33.6 % (38-53); Hemoglobin 10.7 g/dL (13.2-16.3); Mean Corpuscular Hemoglobin 28.3 pg (27-33); Mean Corpuscular Hgb Conc 31.8 g/dL (31-36); Mean Corpuscular Volume 89.2 fL (80-97); Mean Platelet Volume 8.9 fL (7.5-11.2); Platelet Count 243 10^3/uL (150-450); Red Blood Count 3.77 10^6/uL (4.06-5.63); Red Cell Distribution Width 18.7 % (12-17); White Blood Count 9.6 10^3/uL (3.6-10.2)
[2023-06-06 08:40] LABS: Calcium 8.3 mg/dL (8.6-10.3); Creatinine, Serum 1.56 mg/dL (0.67-1.17); Magnesium 1.8 mg/dL (1.9-2.7); Potassium 3.9 mmol/L (3.5-5.0); eGFR CKD-EPI 47.2 (>60)
[2023-06-07 06:27] LABS: Hematocrit 33.4 % (38-53); Hemoglobin 10.6 g/dL (13.2-16.3); Mean Corpuscular Hemoglobin 28.3 pg (27-33); Mean Corpuscular Hgb Conc 31.8 g/dL (31-36); Mean Corpuscular Volume 88.9 fL (80-97); Mean Platelet Volume 8.9 fL (7.5-11.2); Platelet Count 245 10^3/uL (150-450); Red Blood Count 3.76 10^6/uL (4.06-5.63); Red Cell Distribution Width 18.7 % (12-17); White Blood Count 8.1 10^3/uL (3.6-10.2)
[2023-06-07 06:45] LABS: Calcium 8.3 mg/dL (8.6-10.3); Creatinine, Serum 1.49 mg/dL (0.67-1.17); Magnesium 1.9 mg/dL (1.9-2.7); Potassium 4.5 mmol/L (3.5-5.0); eGFR CKD-EPI 49.9 (>60)
[2023-06-07] MEDS ORDERED: Propofol 10 MG/ML 20 ML BTL ONE (14:13)
[2023-06-07] MEDS ORDERED: Lidocaine 2% PF 5 ML VIAL ONE (14:13)
[2023-06-07] MEDS ORDERED: Rocuronium 50 mg VIAL 10 mg/ml 5 ml VIAL (50 mg) ONE (16:10)
[2023-06-07] MEDS ORDERED: Midazolam 2 mg/2 ml VIAL 1 mg/ml 2 ml VIAL (2 mg) ONE (16:15)
[2023-06-07] MEDS ORDERED: fentaNYL 100 mcg/2 ml 50 MCG/ML VIAL ONE (16:15)
[2023-06-07] MEDS ORDERED: ROPIVACAINE 5 MG/ML 30 ML BTL (0.5%) ONE (18:54)
[2023-06-07] MEDS ORDERED: Acetaminophen IV 1 GM/100ML 1,000 MG/100 ML BAG IV ONE (18:59)
[2023-06-07] MEDS ORDERED: Metoprolol Tartrate 5 mg VIAL 5 ml VIAL (1 mg/ml) ONE (19:05)
[2023-06-07] MEDS ORDERED: HYDROmorphone 0.5 MG/0.5 ML SYRINGE ONE (19:06)
[2023-06-07] MEDS ORDERED: fentaNYL 100 mcg/2 ml 50 MCG/ML VIAL IV PRN (20:19)
[2023-06-07] MEDS ORDERED: Naloxone 0.4 mg VIAL 0.4 mg/ml 1 ml VIAL IV PRN (20:19)
[2023-06-07] MEDS ORDERED: Ondansetron 4 mg VIAL 2 MG/ML 2 ml VIAL IV PRN (20:19)
[2023-06-07] MEDS: Lactated Ringers 1000 ml BAG 1,000 ML IV SCH (22:14)
[2023-06-07] MEDS: Morphine 2 MG/ML SYRINGE IV PRN (22:14)
[2023-06-08 06:18] LABS: Hematocrit 35.8 % (38-53); Mean Corpuscular Hemoglobin 27.7 pg (27-33); Mean Corpuscular Hgb Conc 30.8 g/dL (31-36); Mean Corpuscular Volume 90.1 fL (80-97); Mean Platelet Volume 9.1 fL (7.5-11.2); Platelet Count 274 10^3/uL (150-450); Red Blood Count 3.98 10^6/uL (4.06-5.63); Red Cell Distribution Width 18.8 % (12-17); White Blood Count 12.1 10^3/uL (3.6-10.2)
[2023-06-08 06:38] LABS: C Reactive Protein 35.56 mg/L (<8.01); Calcium 8.1 mg/dL (8.6-10.3); Creatinine, Serum 1.49 mg/dL (0.67-1.17); Magnesium 1.7 mg/dL (1.9-2.7); Potassium 4.6 mmol/L (3.5-5.0); eGFR CKD-EPI 49.9 (>60)
[2023-06-08] MEDS: Vancomycin Trough Check NOTE FOLLOW UP ONE (07:02)
[2023-06-08] MEDS: Senna TAB 8.6 mg TAB PO PRN (09:00)
[2023-06-08] MEDS: Magnesium Sulf 4 GM/100 ML IV 4,000 MG/100 ML BAG IVPB ONE (09:09)
[2023-06-08] MEDS: cefTRIAXone 1 gm/50 mL D5W 1 GM/50 ML BAG IV SCH (12:32)
[2023-06-08] MEDS: cefTRIAXone 1 gm/50 mL D5W 1 GM/50 ML BAG IV ONE (18:16)
[2023-06-09 07:10] LABS: Anion Gap 9 mmol/L (2-16); Blood Urea Nitrogen 21 mg/dL (6-24); CO2 Carbon Dioxide 18 mmol/L (22-32); Calcium 8.1 mg/dL (8.6-10.3); Chloride 107 mmol/L (101-111); Creatinine, Serum 1.47 mg/dL (0.67-1.17); Glucose 85 mg/dL (70-100); Sodium 134 mmol/L (135-145); eGFR CKD-EPI 50.7 (>60)
[2023-06-09] MEDS: Vancomycin 1000 MG in NS 0.9% 250 ML IVPB SCH (08:44)
[2023-06-09 08:51] LABS: Hematocrit 32.8 % (38-53); Hemoglobin 10.2 g/dL (13.2-16.3); Mean Corpuscular Hgb Conc 31.2 g/dL (31-36); Mean Corpuscular Volume 89.6 fL (80-97); Mean Platelet Volume 8.6 fL (7.5-11.2); Platelet Count 263 10^3/uL (150-450); Red Blood Count 3.66 10^6/uL (4.06-5.63); Red Cell Distribution Width 18.7 % (12-17); White Blood Count 9.6 10^3/uL (3.6-10.2)
[2023-06-09 09:07] LABS: Magnesium 2.3 mg/dL (1.9-2.7); Potassium 4.9 mmol/L (3.5-5.0)
[2023-06-09] MEDS: cefTRIAXone 2 gm/50 mL D5W 2 GM/50 ML BAG IV SCH (12:18)
[2023-06-11 08:47] LABS: Vancomycin Trough 18.2 mcg/mL
[2023-06-11] MEDS: Vancomycin Trough Check NOTE FOLLOW UP ONE (10:50)
[2023-06-11 13:41] LABS: C Reactive Protein 70.22 mg/L (<8.01); Creatinine, Serum 1.57 mg/dL (0.67-1.17); eGFR CKD-EPI 46.8 (>60)
[2023-06-11] MEDS: Enoxaparin 40 MG/0.4 ML SYR SUBCUT SCH (21:03)
[2023-06-12 05:39] LABS: Hematocrit 29.7 % (38-53); Hemoglobin 9.4 g/dL (13.2-16.3); Mean Corpuscular Hemoglobin 28.1 pg (27-33); Mean Corpuscular Hgb Conc 31.6 g/dL (31-36); Mean Corpuscular Volume 88.9 fL (80-97); Mean Platelet Volume 8.5 fL (7.5-11.2); Platelet Count 256 10^3/uL (150-450); Red Blood Count 3.34 10^6/uL (4.06-5.63); Red Cell Distribution Width 19.4 % (12-17); White Blood Count 7.4 10^3/uL (3.6-10.2)
[2023-06-12 05:55] LABS: Calcium 7.9 mg/dL (8.6-10.3); Creatinine, Serum 1.43 mg/dL (0.67-1.17); Magnesium 1.8 mg/dL (1.9-2.7); Potassium 4.5 mmol/L (3.5-5.0); eGFR CKD-EPI 52.4 (>60)
[2023-06-13 06:01] LABS: Hematocrit 29.9 % (38-53); Hemoglobin 9.5 g/dL (13.2-16.3); Mean Corpuscular Hemoglobin 28.1 pg (27-33); Mean Corpuscular Hgb Conc 31.6 g/dL (31-36); Mean Corpuscular Volume 88.9 fL (80-97); Mean Platelet Volume 8.5 fL (7.5-11.2); Platelet Count 243 10^3/uL (150-450); Red Blood Count 3.36 10^6/uL (4.06-5.63); Red Cell Distribution Width 19.3 % (12-17); White Blood Count 6.4 10^3/uL (3.6-10.2)
[2023-06-13 06:09] LABS: Calcium 8.3 mg/dL (8.6-10.3); Creatinine, Serum 1.47 mg/dL (0.67-1.17); Magnesium 1.8 mg/dL (1.9-2.7); Potassium 4.7 mmol/L (3.5-5.0); eGFR CKD-EPI 50.7 (>60)
[2023-06-13] MEDS: Vancomycin Trough Check NOTE FOLLOW UP ONE (08:00)
[2023-06-13] MEDS: Magnesium Sulfate 2 gm BAG 2 GM/50 ML BAG IVPB ONE (12:05)
[2023-06-13 13:05] LABS: C Reactive Protein 38.95 mg/L (<8.01)
[2023-06-14] MEDS: Lactated Ringers 1000 ml BAG 1,000 ML IV SCH ×2 (00:49→20:09)
[2023-06-14 05:56] LABS: Calcium 8.1 mg/dL (8.6-10.3); Creatinine, Serum 1.41 mg/dL (0.67-1.17); Magnesium 2.1 mg/dL (1.9-2.7); Potassium 4.7 mmol/L (3.5-5.0); eGFR CKD-EPI 53.3 (>60)
[2023-06-14 06:28] LABS: Hematocrit 29.2 % (38-53); Hemoglobin 9.1 g/dL (13.2-16.3); Mean Corpuscular Hemoglobin 28.2 pg (27-33); Mean Corpuscular Hgb Conc 31.3 g/dL (31-36); Mean Corpuscular Volume 90.1 fL (80-97); Mean Platelet Volume 8.6 fL (7.5-11.2); Platelet Count 228 10^3/uL (150-450); Red Blood Count 3.24 10^6/uL (4.06-5.63); Red Cell Distribution Width 18.9 % (12-17); White Blood Count 5.3 10^3/uL (3.6-10.2)
[2023-06-14] MEDS ORDERED: Propofol 10 MG/ML 20 ML BTL ONE (14:46)
[2023-06-14] MEDS ORDERED: Midazolam 2 mg/2 ml VIAL 1 mg/ml 2 ml VIAL (2 mg) ONE (14:47)
[2023-06-14] MEDS ORDERED: Lidocaine 2% PF 5 ML VIAL ONE (14:47)
[2023-06-14] MEDS ORDERED: fentaNYL 100 mcg/2 ml 50 MCG/ML VIAL ONE (14:47)
[2023-06-14] MEDS ORDERED: Rocuronium 50 mg VIAL 10 mg/ml 5 ml VIAL (50 mg) ONE (14:47)
[2023-06-14] MEDS ORDERED: fentaNYL 100 mcg/2 ml 50 MCG/ML VIAL IV PRN (15:17)
[2023-06-14] MEDS ORDERED: Ondansetron 4 mg VIAL 2 MG/ML 2 ml VIAL IV PRN (15:17)
[2023-06-14] MEDS ORDERED: Naloxone 0.4 mg VIAL 0.4 mg/ml 1 ml VIAL IV PRN (15:17)
[2023-06-14] MEDS ORDERED: ROPIVACAINE 5 MG/ML 30 ML BTL (0.5%) ONE (16:12)
[2023-06-14] MEDS ORDERED: Metoprolol Tartrate 5 mg VIAL 5 ml VIAL (1 mg/ml) ONE (17:36)
[2023-06-14] MEDS ORDERED: Ondansetron 4 mg VIAL 2 MG/ML 2 ml VIAL ONE (17:36)
[2023-06-14] MEDS ORDERED: HYDROmorphone 1 MG/1 ML SYRINGE ONE (18:55)
[2023-06-14] MEDS: HYDROmorphone 1 MG/1 ML SYRINGE IV PRN (18:57)
[2023-06-15 05:06] LABS: Hematocrit 31.1 % (38-53); Hemoglobin 9.7 g/dL (13.2-16.3); Mean Corpuscular Hemoglobin 28.4 pg (27-33); Mean Corpuscular Hgb Conc 31.3 g/dL (31-36); Mean Corpuscular Volume 90.7 fL (80-97); Mean Platelet Volume 8.3 fL (7.5-11.2); Platelet Count 246 10^3/uL (150-450); Red Blood Count 3.43 10^6/uL (4.06-5.63); Red Cell Distribution Width 19.8 % (12-17); White Blood Count 8.4 10^3/uL (3.6-10.2)
[2023-06-15 05:22] LABS: Calcium 8.1 mg/dL (8.6-10.3); Creatinine, Serum 1.36 mg/dL (0.67-1.17); Potassium 4.8 mmol/L (3.5-5.0); eGFR CKD-EPI 55.6 (>60)
[2023-06-15] MEDS: Enoxaparin 40 MG/0.4 ML SYR SUBCUT SCH (12:46)
[2023-06-16 05:04] LABS: Hemoglobin 8.4 g/dL (13.2-16.3); Mean Corpuscular Hemoglobin 28.2 pg (27-33); Mean Corpuscular Hgb Conc 31.2 g/dL (31-36); Mean Corpuscular Volume 90.5 fL (80-97); Mean Platelet Volume 8.3 fL (7.5-11.2); Platelet Count 201 10^3/uL (150-450); Red Blood Count 2.99 10^6/uL (4.06-5.63); White Blood Count 5.8 10^3/uL (3.6-10.2)
[2023-06-16 05:23] LABS: Calcium 7.8 mg/dL (8.6-10.3); Creatinine, Serum 1.53 mg/dL (0.67-1.17); Magnesium 1.8 mg/dL (1.9-2.7); Potassium 4.6 mmol/L (3.5-5.0); eGFR CKD-EPI 48.3 (>60)
[2023-06-16] MEDS: Magnesium Sulfate 2 gm BAG 2 GM/50 ML BAG IVPB ONE (10:45)
[2023-06-16] MEDS: Polyethylene Glycol 3350 17 GM PACKET PO PRN (19:02)
[2023-06-17 04:40] LABS: Hematocrit 28.7 % (38-53); Mean Corpuscular Hemoglobin 28.6 pg (27-33); Mean Corpuscular Hgb Conc 31.5 g/dL (31-36); Mean Corpuscular Volume 90.6 fL (80-97); Mean Platelet Volume 8.4 fL (7.5-11.2); Platelet Count 204 10^3/uL (150-450); Red Blood Count 3.17 10^6/uL (4.06-5.63); Red Cell Distribution Width 19.9 % (12-17); White Blood Count 5.5 10^3/uL (3.6-10.2)
[2023-06-17 04:58] LABS: Calcium 8.2 mg/dL (8.6-10.3); Creatinine, Serum 1.43 mg/dL (0.67-1.17); Potassium 4.8 mmol/L (3.5-5.0); eGFR CKD-EPI 52.4 (>60)
[2023-06-17 06:03] LABS: Vancomycin Trough 14.4 mcg/mL
[2023-06-17] MEDS: Vancomycin Trough Check NOTE FOLLOW UP ONE (10:13)
[2023-06-17] MEDS: Vancomycin 1,250 MG in NS 0.9% 250 ml 250 ML IVPB SCH (10:16)
[2023-06-17] MEDS: Morphine 2 MG/ML SYRINGE IV PRN (16:02)
[2023-06-18 05:54] LABS: ABS Basophils 0.1 10^3/uL (0.0-0.1); ABS Eosinophils 0.1 10^3/uL (0.0-0.5); ABS Lymphocytes 0.9 10^3/uL (1.0-4.8); ABS Monocytes 0.5 10^3/uL (0.0-1.1); ABS Nucleated RBC 0.01 10^3/ul; Eosinophil % 2.3 %; Hematocrit 26.8 % (38-53); Hemoglobin 8.5 g/dL (13.2-16.3); Lymphocyte % 20.2 %; Mean Corpuscular Hgb Conc 31.8 g/dL (31-36); Mean Corpuscular Volume 91.2 fL (80-97); Mean Platelet Volume 8.2 fL (7.5-11.2); Nucleated Red Blood Cells % 0.2 %/100WBC (0.0-0.8); Platelet Count 190 10^3/uL (150-450); Red Blood Count 2.94 10^6/uL (4.06-5.63); White Blood Count 4.7 10^3/uL (3.6-10.2)
[2023-06-18 06:12] LABS: Calcium 7.8 mg/dL (8.6-10.3); Creatinine, Serum 1.71 mg/dL (0.67-1.17); Magnesium 1.8 mg/dL (1.9-2.7); Potassium 5.1 mmol/L (3.5-5.0); eGFR CKD-EPI 42.3 (>60)
[2023-06-18] MEDS: Magnesium Sulfate 2 gm BAG 2 GM/50 ML BAG IVPB ONE (10:00)
[2023-06-19 06:02] LABS: ABS Basophils 0.1 10^3/uL (0.0-0.1); ABS Eosinophils 0.1 10^3/uL (0.0-0.5); ABS Lymphocytes 1.1 10^3/uL (1.0-4.8); ABS Monocytes 0.5 10^3/uL (0.0-1.1); ABS Neutrophils 2.4 10^3/uL (1.5-7.6); ABS Nucleated RBC 0.01 10^3/ul; Eosinophil % 2.8 %; Hematocrit 26.7 % (38-53); Hemoglobin 8.5 g/dL (13.2-16.3); Lymphocyte % 25.6 %; Mean Corpuscular Hgb Conc 31.9 g/dL (31-36); Mean Platelet Volume 8.4 fL (7.5-11.2); Nucleated Red Blood Cells % 0.2 %/100WBC (0.0-0.8); Platelet Count 189 10^3/uL (150-450); Red Blood Count 2.93 10^6/uL (4.06-5.63); White Blood Count 4.2 10^3/uL (3.6-10.2)
[2023-06-19 06:28] LABS: Creatinine, Serum 1.58 mg/dL (0.67-1.17); Potassium 4.8 mmol/L (3.5-5.0); eGFR CKD-EPI 46.5 (>60)
[2023-06-19] MEDS: Vancomycin Trough Check NOTE FOLLOW UP ONE (09:59)
[2023-06-20 05:15] VITALS: BP 114/65
[2023-06-20 07:39] LABS: Creatinine, Serum 1.65 mg/dL (0.67-1.17); eGFR CKD-EPI 44.1 (>60)
[2023-06-22] MEDS ORDERED: Vancomycin Trough Check NOTE FOLLOW UP ONE (09:30)
== END 2023-06-20 08:39 | DRG 854 ==
LOC: ED 19:06 → EDHOLD 23:40 → SUATTDRO 23:40 → MED 23:40
PROVIDERS: ADMIT Internal Medicine; ATTEND Internal Medicine

== ENCOUNTER 2023-06-19 11:20 | Inpatient (IN) ==
[2023-06-20] MEDS ORDERED: Senna TAB 8.6 mg TAB PO PRN (10:50)
[2023-06-20] MEDS ORDERED: Vancomycin per Pharmacy 1 EA NOTE FOLLOW UP SCH (14:00)
[2023-06-20] MEDS: cefTRIAXone 2 gm/50 mL D5W 2 GM/50 ML BAG IV SCH (14:17)
[2023-06-20] MEDS: Vancomycin 1,250 MG in NS 0.9% 250 ml 250 ML IVPB SCH (15:16)
[2023-06-21] MEDS: Nicotine PATCH 7 MG/24 HR PATCH TRANSDERM SCH (10:46)
[2023-06-21] MEDS: Aspirin EC 81 mg TAB.EC (enteric coated) PO SCH (10:49)
[2023-06-22 06:14] LABS: ABS Basophils 0.1 10^3/uL (0.0-0.1); ABS Eosinophils 0.1 10^3/uL (0.0-0.5); ABS Lymphocytes 0.8 10^3/uL (1.0-4.8); ABS Monocytes 0.4 10^3/uL (0.0-1.1); ABS Neutrophils 2.3 10^3/uL (1.5-7.6); Eosinophil % 3.7 %; Hemoglobin 8.6 g/dL (13.2-16.3); Lymphocyte % 22.4 %; Mean Corpuscular Hemoglobin 29.2 pg (27-33); Mean Corpuscular Hgb Conc 31.8 g/dL (31-36); Mean Corpuscular Volume 91.7 fL (80-97); Mean Platelet Volume 8.3 fL (7.5-11.2); Nucleated Red Blood Cells % 0.1 %/100WBC (0.0-0.8); Platelet Count 151 10^3/uL (150-450); Red Blood Count 2.94 10^6/uL (4.06-5.63); Red Cell Distribution Width 20.8 % (12-17); White Blood Count 3.7 10^3/uL (3.6-10.2)
[2023-06-22 06:29] LABS: Albumin 2.7 g/dL (3.2-5.2); C Reactive Protein 6.31 mg/L (<8.01); Calcium 8.1 mg/dL (8.6-10.3); Creatinine, Serum 1.54 mg/dL (0.67-1.17); Globulin 2.6 g/dL (2-4); Potassium 4.7 mmol/L (3.5-5.0); Total Bilirubin 0.3 mg/dL (0.2-1.0); Total Protein 5.3 g/dL (6.4-8.9); eGFR CKD-EPI 47.9 (>60)
[2023-06-22] MEDS: Vancomycin Trough Check NOTE FOLLOW UP ONE (16:04)
[2023-06-22] MEDS: Vancomycin 1000 MG in NS 0.9% 250 ML IVPB SCH (16:46)
[2023-06-23] MEDS ORDERED: COVID VAC 23-24(12+)(Moderna) SYR 0.5 ML IM ONE (09:00)
[2023-06-23] MEDS: Influenza vaccine *QUAD* *2023-24* 0.5 ML SYRINGE IM ONE (11:29)
[2023-06-23] MEDS: Magnesium Hydroxide LIQ 30 ML UDC PO PRN (15:41)
[2023-06-24] MEDS: COVID VAC 23-24(12+)(Moderna) SYR 0.5 ML IM ONE (12:38)
[2023-06-25] MEDS: Vancomycin Trough Check NOTE FOLLOW UP ONE (11:51)
[2023-06-25] MEDS: Albuterol HFA INHALER 8 gm MDI INH PRN (18:10)
[2023-06-25 21:00] LABS: Creatinine, Serum 1.68 mg/dL (0.67-1.17); eGFR CKD-EPI 43.2 (>60)
[2023-06-25] MEDS: Albuterol/Ipratropium NEB.SOL (2.5/0.5 MG) 3 ML NEB.SOLN INH PRN (22:18)
[2023-06-26] MEDS: guaiFENesin 100 mg/5 ml LIQ unit dose cup PO PRN (02:08)
[2023-06-26 05:43] LABS: ABS Lymphocytes 0.3 10^3/uL (1.0-4.8); ABS Monocytes 0.7 10^3/uL (0.0-1.1); ABS Neutrophils 6.2 10^3/uL (1.5-7.6); Eosinophil % 0.1 %; Hematocrit 29.8 % (38-53); Hemoglobin 9.5 g/dL (13.2-16.3); Mean Corpuscular Hemoglobin 29.4 pg (27-33); Mean Platelet Volume 9.1 fL (7.5-11.2); Platelet Count 127 10^3/uL (150-450); Red Blood Count 3.24 10^6/uL (4.06-5.63); Red Cell Distribution Width 20.8 % (12-17); White Blood Count 7.2 10^3/uL (3.6-10.2)
[2023-06-26 06:13] LABS: Calcium 7.9 mg/dL (8.6-10.3); Creatinine, Serum 1.67 mg/dL (0.67-1.17); Potassium 6.3 mmol/L (3.5-5.0); eGFR CKD-EPI 43.5 (>60)
[2023-06-26] MEDS: Sodium Polystyrene ORAL.SUSP 15 GM/60 ML BTL PO ONE (06:57)
[2023-06-27 00:29] LABS: Calcium 7.7 mg/dL (8.6-10.3); Creatinine, Serum 1.65 mg/dL (0.67-1.17); Potassium 5.3 mmol/L (3.5-5.0); eGFR CKD-EPI 44.1 (>60)
[2023-06-27 06:37] LABS: Calcium 7.8 mg/dL (8.6-10.3); Creatinine, Serum 1.59 mg/dL (0.67-1.17); Potassium 5.3 mmol/L (3.5-5.0); eGFR CKD-EPI 46.1 (>60)
[2023-06-28 08:04] LABS: C Reactive Protein 63.36 mg/L (<8.01)
[2023-06-28] MEDS: Vancomycin Trough Check NOTE FOLLOW UP ONE (14:08)
[2023-06-28 18:40] LABS: Creatinine, Serum 1.84 mg/dL (0.67-1.17); eGFR CKD-EPI 38.7 (>60)
[2023-06-28] MEDS: Vancomycin 1000 MG in NS 0.9% 250 ML IVPB SCH (19:43)
[2023-06-29 06:51] LABS: Hematocrit 32.3 % (38-53); Hemoglobin 10.2 g/dL (13.2-16.3); Mean Corpuscular Hemoglobin 28.9 pg (27-33); Mean Corpuscular Hgb Conc 31.6 g/dL (31-36); Mean Corpuscular Volume 91.7 fL (80-97); Mean Platelet Volume 8.8 fL (7.5-11.2); Platelet Count 118 10^3/uL (150-450); Red Blood Count 3.52 10^6/uL (4.06-5.63); Red Cell Distribution Width 20.1 % (12-17); White Blood Count 2.7 10^3/uL (3.6-10.2)
[2023-06-29 07:32] LABS: Albumin 3.3 g/dL (3.2-5.2); Albumin/Globulin Ratio 1.2 (1-3); C Reactive Protein 21.26 mg/L (<8.01); Calcium 7.5 mg/dL (8.6-10.3); Creatinine, Serum 1.71 mg/dL (0.67-1.17); Globulin 2.7 g/dL (2-4); Total Bilirubin 0.4 mg/dL (0.2-1.0); eGFR CKD-EPI 42.3 (>60)
[2023-06-29 07:35] LABS: ABS Eosinophils 0.2 10^3/uL (0.0-0.5); ABS Lymphocytes 0.7 10^3/uL (1.0-4.8); ABS Monocytes 0.6 10^3/uL (0.0-1.1); ABS Neutrophils 1.2 10^3/uL (1.5-7.6); ABS Nucleated RBC 0.01 10^3/ul; Eosinophil % 6.2 %; Lymphocyte % 27.9 %; Nucleated Red Blood Cells % 0.4 %/100WBC (0.0-0.8)
[2023-06-29] MEDS ORDERED: COVID VAC 23-24(12+)(Moderna) SYR 0.5 ML IM ONE (09:00)
[2023-06-29] MEDS: Albuterol HFA INHALER 8 gm MDI INH PRN (19:33)
[2023-06-30 06:11] LABS: ABS Basophils 0.1 10^3/uL (0.0-0.1); ABS Eosinophils 0.2 10^3/uL (0.0-0.5); ABS Lymphocytes 0.8 10^3/uL (1.0-4.8); ABS Monocytes 0.5 10^3/uL (0.0-1.1); ABS Neutrophils 1.4 10^3/uL (1.5-7.6); ABS Nucleated RBC 0.01 10^3/ul; Eosinophil % 5.6 %; Hematocrit 34.3 % (38-53); Hemoglobin 10.8 g/dL (13.2-16.3); Lymphocyte % 27.7 %; Mean Corpuscular Hemoglobin 29.2 pg (27-33); Mean Corpuscular Hgb Conc 31.6 g/dL (31-36); Mean Corpuscular Volume 92.2 fL (80-97); Nucleated Red Blood Cells % 0.5 %/100WBC (0.0-0.8); Platelet Count 128 10^3/uL (150-450); Red Blood Count 3.72 10^6/uL (4.06-5.63); Red Cell Distribution Width 20.2 % (12-17)
[2023-07-01] MEDS: COVID VAC 23-24(12+)(Moderna) SYR 0.5 ML IM ONE (09:28)
[2023-07-02] MEDS ORDERED: Vancomycin Trough Check NOTE FOLLOW UP ONE (18:30)
[2023-07-05 05:50] VITALS: BP 117/79
== END 2023-07-05 14:30 | disposition home or self-care (01) | DRG 603 ==
LOC: PMRU 06-20 08:49
PROVIDERS: ADMIT Physical Medicine & Rehabilitation; ATTEND Physical Medicine & Rehabilitation

== ENCOUNTER 2023-10-07 15:29 | Observation (INO) ==
[2023-10-07 17:17] LABS: ABS Basophils 0.1 10^3/uL (0.0-0.1); ABS Eosinophils 0.1 10^3/uL (0.0-0.5); ABS Lymphocytes 0.4 10^3/uL (1.0-4.8); ABS Monocytes 0.5 10^3/uL (0.0-1.1); ABS Neutrophils 8.2 10^3/uL (1.5-7.6); Eosinophil % 0.8 %; Hematocrit 36.1 % (38-53); Hemoglobin 11.5 g/dL (13.2-16.3); Lymphocyte % 4.4 %; Mean Corpuscular Hemoglobin 26.9 pg (27-33); Mean Corpuscular Hgb Conc 31.7 g/dL (31-36); Mean Corpuscular Volume 84.8 fL (80-97); Mean Platelet Volume 8.7 fL (7.5-11.2); Platelet Count 102 10^3/uL (150-450); Red Blood Count 4.26 10^6/uL (4.06-5.63); Red Cell Distribution Width 17.7 % (12-17); White Blood Count 9.3 10^3/uL (3.6-10.2)
[2023-10-07 17:53] LABS: Anion Gap 7 mmol/L (2-16); Blood Urea Nitrogen 25 mg/dL (6-24); CO2 Carbon Dioxide 24 mmol/L (22-32); Calcium 8.5 mg/dL (8.6-10.3); Chloride 108 mmol/L (101-111); Creatinine, Serum 1.57 mg/dL (0.67-1.17); Glucose 83 mg/dL (70-100); Potassium 4.1 mmol/L (3.5-5.0); Sodium 139 mmol/L (135-145); eGFR CKD-EPI 46.8 (>60)
[2023-10-07] MEDS: NS 0.9% 1000 ml BAG 1,000 ML IV ONE (21:48)
[2023-10-07] MEDS ORDERED: LORazepam 2 mg VIAL 1 ml IV PUSH ONE (22:04)
[2023-10-07] MEDS ORDERED: Lorazepam PYXIS KEY PRN (22:04)
[2023-10-07 22:28] LABS: Alcohol, S < 13 mg/dL (<13)
[2023-10-07 22:39] LABS: Urine Appearance Clear; Urine Bilirubin Negative (Negative); Urine Blood 1+ (Negative); Urine Color Light-Yellow; Urine Glucose Negative (Negative); Urine Ketones Negative (Negative); Urine Nitrite Negative (Negative); Urine Protein 1+ (>=30 mg/dL) (Negative); Urine Specific Gravity 1.014 (1.002-1.030); Urine Urobilinogen Negative (Negative)
[2023-10-07] MEDS: LORazepam 2 MG/ML 1 mL Syringe IV ONE (22:46)
[2023-10-07 22:56] LABS: Urine Bacteria Absent /HPF (Absent); Urine Red Blood Cell Trace(0-2/hpf) /HPF (0-Trace); Urine Squamous Epithelial Cell Present /HPF (Absent); Urine White Blood Cell Absent /HPF (0-Trace)
[2023-10-07] MEDS: Metoprolol Tartrate 5 mg VIAL 5 ml VIAL (1 mg/ml) IV ONE (23:45)
[2023-10-08] MEDS: Albuterol/Ipratropium NEB.SOL (2.5/0.5 MG) 3 ML NEB.SOLN INH ONE ×2 (01:50→02:22)
[2023-10-08] MEDS: Droperidol 5 MG/2 ML 2 ML VIAL IV ONE (01:51)
[2023-10-08] MEDS: Metoprolol Tartrate 5 mg VIAL 5 ml VIAL (1 mg/ml) IV ONE (01:52)
[2023-10-08] MEDS: Acetaminophen IV 1 GM/100ML 1,000 MG/100 ML BAG IV ONE (01:54)
[2023-10-08] MEDS ORDERED: Morphine 4 MG/ML VIAL (1 ml) ONE (02:19)
[2023-10-08] MEDS: Morphine 4 MG/ML VIAL (1 ml) IV ONE (02:22)
[2023-10-08] MEDS: Albuterol HFA INHALER 8 gm MDI INH ONE (02:45)
[2023-10-08 02:49] LABS: Albumin 4.1 g/dL (3.2-5.2); Albumin/Globulin Ratio 1.8 (1-3); Direct Bilirubin 0.2 mg/dL (0.03-0.18); Globulin 2.3 g/dL (2-4); Indirect Bilirubin 0.7 mg/dL (0.3-1.0); Total Bilirubin 0.9 mg/dL (0.2-1.0); Total Protein 6.4 g/dL (6.4-8.9)
[2023-10-08] MEDS: Furosemide 40 mg/4 ml IV VIAL IV SLOW PU ONE (02:52)
[2023-10-08] MEDS: Esmolol 10 MG/ML IVPREMIX 2,500 MG/250 ML BAG IV SCH (04:35)
[2023-10-08] MEDS: HYDROmorphone 1 MG/1 ML SYRINGE IV SLOW PU ONE (05:30)
[2023-10-08 07:40] LABS: High Sensitivity Troponin 1 Hr 34 pg/mL (<20)
[2023-10-08] MEDS ORDERED: Albuterol/Ipratropium NEB.SOL (2.5/0.5 MG) 3 ML NEB.SOLN INH PRN (11:04)
[2023-10-08] MEDS: DULoxetine DR 60 mg CAP PO SCH (11:13)
[2023-10-08] MEDS: HYDROmorphone 0.5 MG/0.5 ML SYRINGE IV SLOW PU PRN (11:52)
[2023-10-08] MEDS: Saline NASAL SPRAY 0.65% BTL BOTH NARES PRN (16:05)
[2023-10-08] MEDS: Nystatin TOP POWDER 15 GM BTL TOPICAL SCH (21:11)
[2023-10-09 05:55] LABS: Anion Gap 14 mmol/L (2-16); Blood Urea Nitrogen 28 mg/dL (6-24); CO2 Carbon Dioxide 19 mmol/L (22-32); Calcium 8.2 mg/dL (8.6-10.3); Chloride 106 mmol/L (101-111); Creatinine, Serum 1.77 mg/dL (0.67-1.17); Glucose 89 mg/dL (70-100); Magnesium 1.5 mg/dL (1.9-2.7); Sodium 139 mmol/L (135-145); eGFR CKD-EPI 40.6 (>60)
[2023-10-09 08:38] LABS: Hematocrit 34.7 % (38-53); Hemoglobin 10.7 g/dL (13.2-16.3); Mean Corpuscular Hemoglobin 26.9 pg (27-33); Mean Corpuscular Hgb Conc 30.8 g/dL (31-36); Mean Corpuscular Volume 87.5 fL (80-97); Red Blood Count 3.97 10^6/uL (4.06-5.63); Red Cell Distribution Width 17.6 % (12-17); White Blood Count 5.3 10^3/uL (3.6-10.2)
[2023-10-09 08:51] LABS: ABS Eosinophils 0.1 10^3/uL (0.0-0.5); ABS Lymphocytes 0.9 10^3/uL (1.0-4.8); ABS Monocytes 0.7 10^3/uL (0.0-1.1); ABS Neutrophils 3.6 10^3/uL (1.5-7.6); ABS Nucleated RBC 0.01 10^3/ul; Eosinophil % 1.9 %; Lymphocyte % 16.9 %; Mean Platelet Volume 9.6 fL (7.5-11.2); Nucleated Red Blood Cells % 0.2 %/100WBC (0.0-0.8); Platelet Count 91 10^3/uL (150-450)
[2023-10-09] MEDS: Albuterol HFA INHALER 8 gm MDI INH PRN (09:01)
[2023-10-09] MEDS: Magnesium Sulf 4 GM/100 ML IV 4,000 MG/100 ML BAG IVPB ONE (09:05)
[2023-10-10 06:06] LABS: ABS Eosinophils 0.1 10^3/uL (0.0-0.5); ABS Lymphocytes 0.9 10^3/uL (1.0-4.8); ABS Monocytes 0.6 10^3/uL (0.0-1.1); ABS Neutrophils 2.8 10^3/uL (1.5-7.6); Hematocrit 33.2 % (38-53); Hemoglobin 10.7 g/dL (13.2-16.3); Lymphocyte % 21.3 %; Mean Corpuscular Hemoglobin 27.6 pg (27-33); Mean Corpuscular Hgb Conc 32.1 g/dL (31-36); Mean Corpuscular Volume 86.1 fL (80-97); Mean Platelet Volume 9.5 fL (7.5-11.2); Nucleated Red Blood Cells % 0.1 %/100WBC (0.0-0.8); Platelet Count 88 10^3/uL (150-450); Red Blood Count 3.86 10^6/uL (4.06-5.63); Red Cell Distribution Width 17.8 % (12-17); White Blood Count 4.4 10^3/uL (3.6-10.2)
[2023-10-10 07:59] LABS: Creatinine, Serum 1.6 mg/dL (0.67-1.17); Magnesium 2.1 mg/dL (1.9-2.7); Potassium 4.1 mmol/L (3.5-5.0); eGFR CKD-EPI 45.8 (>60)
[2023-10-10] MEDS: Nicotine PATCH 14 MG/24 HR PATCH TRANSDERM SCH (09:27)
[2023-10-10 10:07] VITALS: BP 119/77
== END 2023-10-10 14:42 | disposition home or self-care (01) ==
LOC: ED 15:29 → EDHOLD 10-08 08:37 → SUATTDRO 10-08 08:37 → INTOOBSV 10-08 08:37 → ICU 10-08 09:14 → MEDTELE 10-08 16:42
PROVIDERS: ADMIT Student in an Organized Health Care Education/Training Program; ATTEND Internal Medicine

== ENCOUNTER 2024-03-20 15:37 | Inpatient (IN) ==
[2024-03-20 16:34] LABS: PO2 Arterial 208 mmHg (80-100)
[2024-03-20 16:36] LABS: PCO2 Arterial 93 mmHg (35-45)
[2024-03-20] MEDS: Morphine 2 MG/ML SYRINGE IV ONE (16:40)
[2024-03-20] MEDS ORDERED: Ondansetron 4 mg VIAL 2 MG/ML 2 ml VIAL IV PRN (18:31)
[2024-03-20] MEDS ORDERED: Lorazepam PYXIS KEY PRN (19:45)
[2024-03-20] MEDS ORDERED: LORazepam 2 mg VIAL 1 ml IV PUSH PRN (19:45)
[2024-03-20] MEDS ORDERED: Acetaminophen IV 1 GM/100ML 1,000 MG/100 ML BAG IV PRN (19:47)
[2024-03-20 21:50] VITALS: BP 102/73
[2024-03-21] MEDS: Atropine 1% (ORAL/SL) 15 ML BTL SL PRN (01:23)
== END 2024-03-21 12:30 | disposition expired | DRG 189 ==
LOC: ED 15:37 → EDHOLD 15:37 → SUATTDRO 18:27 → MED 20:07
PROVIDERS: ADMIT Student in an Organized Health Care Education/Training Program; ATTEND Hospitalist